=== PATIENT | female | born 1950 | race Caucasian/White ===

== ENCOUNTER 2023-01-14 18:10 | Inpatient (IN) | payer OTHER ==
--- OUTSIDE RECORDS SUMMARY | 2023-01-14 18:15 | XMS REPORT | Continuity of Care Document ---
:1950 Author Organization [facility] t Address [address] [facility]. [address] [place] [address] Care Team Providers Name Role Phone David HANSEN, Radha Torres Primary Care Physician [phone] Tom HANSEN, Aby Attending Clinician Jessenia [facility], Genevieve Attending Clinician Unavailable Pipe BRADLEY, Dinesh Attending Clinician Unavailable Gopal HANSEN, Titi Attending Clinician Amy HANSEN, [facility] Yusra Attending Clinician Merritt HANSEN, Chary Orlando Attending Clinician [phone] Guerrero [facility], Mekhi Attending Clinician Unavailable Ana BRADLEY, Yuliana Attending Clinician Unavailable Jeovanny BRADLEY, Lillie Attending Clinician Unavailable Provider, Unknown Attending Clinician Unavailable Gino [facility], Laureen Michaels Attending Clinician Unavailwanda Fuentes MD, Chelsea Beckwith Attending Clinician Rochelle Alberto MD Attending Clinician Ezequiel Pierce MD Attending Clinician [phone] RADHA HERNANDEZ Attending Clinician Unavailable RIP BRAVO Attending Clinician Unavailable LAB90 Attending Clinician Unavailable Roxana Up LVN Attending Clinician Unavailable [address] [place] LVN Attending Clinician Unavailable Rip Bravo DO Attending Clinician David HANSEN, Radha Torres Attending Clinician [phone] CHARY ACKERMAN Admitting Clinician Unavailable Payers Payer Name Policy Type Policy Number Effective Date Expiration Date Jose CARPENTER [place] PPO 5 [id number] 2021 00:00:00 Problems Condition Condition Condition Status Onset Resolution Last Treating Co mments Source Name Details Category Date Date Treatment Clinician Date Physical Physical Disease Active Metho di debility debility 01-04 00:00: Hospita 00 l Acute on Acute on Disease Active 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 00:00: Ho spita y failure y failure 00 l with with hypoxia hypoxia Ovarian Ovarian Disease Active [facility] cancer cancer 12-28 st 00:00: Hospita 00 l Poison janis Poison janis Disease Active K elsey dermatitis dermatitis 08-30 Se ybold 00:00: - 00 Externa l SARS-CoV-2 SARS-CoV-2 Disease Active K elsey positive positive 8 Seybol d 00:00: - 00 Externa l Influenza Influenza Disease Active Darrell sey 3-21 Seybold 00:00: - 00 Externa l Abnormal Abnormal Disease Active Metho di liver liver 2 enzymes enzymes 00:00: Hospita 00 l Autoantibo Autoantibo Disease Active M ethodi dy titer dy titer 2 st positive positive 00:00: Hospit a 00 l Other Other Disease Active Methodi hyperlipid hyperlipid 2 st emia emia 00:00: Hospita 00 l Swelling Swelling Disease Active Kelse y of hand of hand 7 Seybold joint, joint, 00:00: - unspecifie unspecifie 00 Ex terna d d l laterality laterality - Not - Not Controlled Controlled Intermitte Intermitte Disease Active K elsey nt pain nt pain 02-20 Seybold and and 00:00: - swelling swelling 00 Reed Cleaner a of hand - of hand - l Not Not Controlled Controlled Blood in Blood in Disease Active Kelse y stool - stool - 02-20 Seybold Not Not 00:00: - Controlled Controlled 00 Ex terna l Hyperchole Hyperchole Disease Active K elsey sterolemia sterolemia 02-20 Se ybold 00:00: - 00 Externa l Allergies, Adverse Reactions, Alerts Allergy Allergy Status Severity Reaction(s) Onset Inactive Treating Comm ents Source Name Type Date Date Clinician Paclitax Propensi Active Anaphylaxis M ethodi el ty to 01-03 st adverse 00:00: Hospita reaction 00 l s to drug Levoflox Propensi Active Chikis acin ty to 02-20 Seybold adverse 00:00: - reaction 00 Externa s l Levoflox Propensi Active Other (See Me thodi acin ty to Comments) 02-20 st adverse 00:00: Hospita reaction 00 l s to drug Social History Social Habit Start Date Stop Date Quantity Comments Source Exposure to Not sure Chikis [place] SARS-CoV-2 (event) History of tobacco Current smoker [facility] History of Social 2023-01-11 2023-01-[address] function 00:00:00 00:00:00 Hospital Tobacco use and 2023-01-03 2023-01-03 Smokeless [facility] exposure 00:00:00 00:00:00 tobacco non-user Hospital Tobacco Comment 2023-01-03 2023-01-03 Quit many years Meth odist 00:00:00 00:00:00 ago- smoked 1 Hospital pack a week for 5 years Sex Assigned At [birth year] [facility] 00:00:00 00:00:00 Hospital Smoking Status Start Date Stop Date Source Ex-smoker 2023-01-03 00:00:00 2023-01-03 00:00:00 [facility] Never smoked tobacco Chikis Wall old - External Medications Ordered Filled Start Stop Current Ordering Indication Dosage Frequency Signature Comments Components Source Medication Medication Date Date Medication? Clinician (SIG) Name Name acetaminoph 2023-0 Yes 325mg Q4H Take 1 Met hodi en 6-[address] (TYLENOL) 10:14: (325 mg Hospi ta 325 MG 08 total) by l tablet mouth every 4 (four) hours as needed for fever. ondansetron 2022-0 Yes 8mg Q8H Take 1 Meth jackie (ZOFRAN) 8 6-02 tablet (8 st MG tablet 10:14: mg total) Hos kimmy 08 by mouth l every 8 (eight) hours as needed for nausea or vomiting. promethazin 2022-0 Yes 12.5mg Q6H Take 1 Me thodi e 6-[address] (PHENERGAN) 10:14: (12.5 mg Ho spita 12.5 MG 08 total) by l tablet mouth every 6 (six) hours as needed for nausea or vomiting. CALCIUM 2022-0 Yes 1{tbl} QD Take 1 Method i ORAL 6-[address] 10:14: mouth Hospita 08 daily. l cholecalcif 2022-0 Yes 1{capsu QD Take 1 M ethodi yeni, 6-02 le} capsule by vitamin D3, 10:14: mouth Hospi ta (VITAMIN D3 08 daily. l ORAL) cyanocobala 2022-0 Yes 1{tbl} QD Take 1 Me thodi min, 6-[address] vitamin 10:14: mouth Hospita B-12, 08 daily. l (VITAMIN B-12 ORAL) famotidine 2022-0 Yes 20mg Q.5D Take 1 Metho di (PEPCID) 20 6-02 tablet (20 st MG tablet 10:14: mg total) Hos kimmy 08 by mouth 2 l (two) times a day as needed for heartburn. rosuvastati 2022-0 2022- No 5mg QD Take 1 Met hodi n (CRESTOR) 5-26 05-26 tablet (5 st 5 mg tablet 12:19: 00:00 mg total) Hospita 51 :00 by mouth l nightly. acetaminoph 2022-0 2022- No 325mg Q4H Insert 1 Methodi en 5-25 05-[address] (TYLENOL) 16:27: 00:00 y (325 mg Ho spita 325 MG 04 :00 total) l suppository into the rectum every 4 (four) hours as needed for mild pain. predniSONE Yes 1 tab Method i (DELTASONE) 5-[address] 20 mg 00:00: for 7 days Hospit a tablet 00 then 1/2 l po daily for 5 days and then 1/2 tab po daily for 5 days ondansetron 2022- No 8mg Q8H Take 1 Met hodi (ZOFRAN) 8 19 05-25 tablet (8 st MG tablet 00:00: 00:00 mg total) Ho spita 00 :00 by mouth l every 8 (eight) hours as needed for nausea or vomiting for up to 30 days. promethazin 2022- No 12.5mg Q6H Take 1 M ethodi e 5-19 05-[address] (PHENERGAN) 00:00: 00:00 (12.5 mg H ospita 12.5 MG 00 :00 total) by l tablet mouth every 6 (six) hours as needed for nausea or vomiting for up to 30 days. predniSONE 2022- No 50mg QD Take 1 Meth jackie (DELTASONE) 5-17 05-25 tablet (50 s t 50 mg 00:00: 00:00 mg total) Hospit a tablet 00 :00 by mouth l daily for 7 days. predniSONE 2022- No 50mg QD Take 1 Meth jackie (DELTASONE) 5-10 05-17 tablet (50 s t 50 mg 00:00: 00:00 mg total) Hospit a tablet 00 :00 by mouth l daily for 7 days. Triamcinolo 2022- No [id number] 40mg Chikis boggs 08-30 Seybold Acetonide 14:45: 14:45 - (KENALOG) 00 :00 Externa 40 mg/mL l Triamcinolo 2022- No [id number] 40mg 40 mg, Chikis boggs 08-30 intramuscu Seybold Acetonide 14:45: 14:45 lar, ONCE, - (KENALOG) 00 :00 On Alysha Externa 40 mg/mL 08/30/22 at l 0845, For 1 dose B Complex Yes 1{tbl} Take 1 Porsha ey Vitamins 1-19 tablet by Seybol d (B-Complex/ 08:32: mouth - B-12) oral 25 daily Externa Tablet l Aspirin 81 Yes 81mg Take 81 mg K elsey MG oral -19 by mouth Seybold Tablet 08:32: daily - Delayed 25 Externa Response l Probiotic 2022-0 Yes 1{tbl} Take 1 Porsha ey Product -19 tablet by Tiago ([employer] S[facility] 08:32: mouth - PROBIOTIC 25 daily Externa OR) l Ascorbic 0 Yes 1{tbl} Take 1 Kelse y Acid 1-19 tablet by Tiago (Vitamin C) 08:32: mouth - 500 MG oral 25 daily Externa Capsule l Multiple Yes 1{tbl} Take 1 Kelse y Vitamins-Mi -19 tablet by Robles harris nerals 08:32: mouth - (CENTRUM 25 daily Externa ADULTS OR) l Coenzyme Yes 1{capsu Take 1 Porsha ey Q10 (CoQ10) -19 le} capsule by ybold 200 MG oral 08:32: mouth - Capsule 25 daily Externa l Calcium Yes Take by Chikis Carb-Cholec -19 mouth Seybold alciferol 08:32: - (Calcium 25 Externa 500 + D3) l 500-200 MG-UNIT oral Tablet predniSONE Yes One pill Chikis (DELTASONE) 1-19 twice Seybold 10 MG oral 00:00: daily for - tablet 00 7 days Externa then one l pill daily for 7 days Famotidine Yes 20mg Take 1 Chikis (Pepcid) 20 -19 tablet (20 Se ybold MG oral 00:00: mg total) - tablet 00 by mouth 2 Externa times l daily Cetirizine Yes 10mg Take 1 Chikis HCl (ZyrTEC -19 capsule Ebenezer ld Allergy) 10 00:00: (10 mg - MG oral 00 total) by Externa Capsule mouth l daily Poison Janis Yes Apply 1 Chikis Treatments -19 applicatio Robles harris (Zanfel) 00:00: n - apply 00 topically Externa externally daily l Misc Hydroxychlo 2021-08 Yes 1{tbl} Take 1 Ke lsey roquine 0-13 tablet by Seybold Sulfate 200 00:00: mouth 2 - MG oral 00 times Externa Tablet daily l hydroxychlo 2021-08 Yes 200mg Q.5D Take 1 Met hodi roquine 0-[address] (PLAQUENIL) 00:00: (200 mg Hos kimmy 200 mg 00 total) by l tablet mouth 2 (two) times a day. LORAZepam 2022- No 1mg Take 2 Metho di (Ativan) 04-25-25 tablets (1 st 0.5 MG 00:00: 00:00 mg total) Hospi ta tablet 00 :00 by mouth l once for 1 dose. Take 2 tablets 1 hour before your procedure. LORAZepam 2022- No 1mg Take 1 Metho di (Ativan) 1 04-25-25 tablet (1 st MG tablet 00:00: 00:00 mg total) Ho spita 00 :00 by mouth l once for 1 dose. Take one tablet 1 hour before your procedure Oseltamivir Yes [id number] 75mg Take 1 K elsey Phosphate 3-21 capsule Seybold 75 MG oral 00:00: (75 mg Capsule 00 total) by mouth in the morning and 1 capsule (75 mg total) in the evening. Benzonatate Yes [id number] 100mg Q.[id number] Take 1 Chikis (Tessalon 3-21 [id number] capsule S frenchbold Olegario) 100 00:00: 3D (100 mg MG oral 00 total) by Capsule mouth 3 times daily as needed for cough Aspirin Yes 81mg Take 81 mg Porsha ey (Aspirin 7-12 by mouth Seybold 81) 81 MG 09:34: daily oral Tablet 23 Delayed Response Probiotic Yes 1{tbl} Take 1 Porsha ey Product 7-12 tablet by Seybold ([employer] [facility] 09:34: mouth PROBIOTIC 23 daily OR) Ascorbic Yes 1{tbl} Take 1 Kelse y Acid 7-12 tablet by Seybold (Vitamin C) 09:34: mouth 500 MG oral 23 daily Capsule Aspirin Yes 81mg Take 81 mg Porsha ey (Aspirin 7-12 by mouth Seybold 81) 81 MG 09:34: daily oral Tablet 23 Delayed Response Probiotic Yes 1{tbl} Take 1 Porsha ey Product 7-12 tablet by Tiago ([employer] [facility] 09:34: mouth PROBIOTIC 23 daily OR) Ascorbic Yes 1{tbl} Take 1 Kelse y Acid 7-12 tablet by Tiago (Vitamin C) 09:34: mouth 500 MG oral 23 daily Capsule Multiple Yes 1{tbl} Take 1 Kelse y Vitamins-Mi 7-12 tablet by Robles sullivan 09:32: mouth (CENTRUM 45 daily ADULTS OR) Coenzyme Yes 1{capsu Take 1 Porsha ey Q10 (CoQ10) 7-12 le} capsule by Se llamasold 200 MG oral 09:32: mouth Capsule 45 daily Calcium Yes Take by Chikis Carb-Cholec 7-12 mouth Tiago alciferol 09:32: (Calcium 45 500 + D3) 500-200 MG-UNIT oral Tablet B Complex Yes 1{tbl} Take 1 Porsha ey Vitamins 7-12 tablet by Maeol d (B-Complex/ 09:32: mouth B-12) oral 45 daily Tablet Multiple Yes 1{tbl} Take 1 Kelse y Vitamins-Mi 7-12 tablet by Robles sullivan 09:32: mouth (CENTRUM 45 daily ADULTS OR) Coenzyme Yes 1{capsu Take 1 Porsha ey Q10 (CoQ10) 7-12 le} capsule by ybold 200 MG oral 09:32: mouth Capsule 45 daily Calcium Yes Take by Chikis Carb-Cholec 7-12 mouth Tiago alciferol 09:32: (Calcium 45 500 + D3) 500-200 MG-UNIT oral Tablet B Complex Yes 1{tbl} Take 1 Porsha ey Vitamins 7-12 tablet by Seybol d (B-Complex/ 09:32: mouth B-12) oral 45 daily Tablet Immunizations Ordered Immunization Filled Immunization Date Status Commen ts Source Name Name Influenza Virus 2022-05-28 Completed Chikis rossi Vaccine, 00:00:00 - External Quadrivalent, High Dose, Age 65 And Up Influenza vaccine, 2021-05-25 Completed Chikis Ordoñez quadrivalent, 00:00:00 - External adjuvanted Influenza vaccine, 2021-05-25 Completed Chikis Ordoñez quadrivalent, 00:00:00 adjuvanted Influenza vaccine, 2021-05-25 Completed Chikis Ordoñez quadrivalent, 00:00:00 adjuvanted Covid-19 Vaccine 2020-11-30 Completed Chikis joya Moderna (Spikevax), 00:00:00 - Ext ernal Mrna-lnp, Titus Protein, Pf Covid-19 Vaccine 2020-11-30 Completed Chikis joya (Moderna), Mrna-lnp, 00:00:00 Titus Protein, Pf, 100 Mcg/0.5ml,IM Covid-19 Vaccine 2020-11-30 Completed Chikis joya Moderna (Spikevax), 00:00:00 Mrna-lnp, Titus Protein, Pf MODERNA COVID-19 MRNA 2020-11-30 Completed Met [facility]odist VACCINATION 00:00:00 Hospital Covid-19 Vaccine 2020-11-02 Completed Chikis joya Moderna (Spikevax), 00:00:00 - Ext ernal Mrna-lnp, Titus Protein, Pf Covid-19 Vaccine 2020-11-02 Completed Chikis jyoa (Moderna), Mrna-lnp, 00:00:00 Titus Protein, Pf, 100 Mcg/0.5ml,IM Covid-19 Vaccine 2020-11-02 Completed Chikis joya Moderna (Spikevax), 00:00:00 Mrna-lnp, Titus Protein, Pf MODERNA COVID-19 MRNA 2020-11-02 Completed Met hodist VACCINATION 00:00:00 [facility] Influenza Virus 2020-05-24 Completed Chikis rossi Vaccine, age 6 months 00:00:00 - E xternal and up Influenza Virus 2020-05-24 Completed Chikis rossi Vaccine, age 6 months 00:00:00 and up Influenza Virus 2020-05-24 Completed Chikis rossi Vaccine, age 6 months 00:00:00 and up Tdap- (Boostrix, 2019-08-26 Completed Chikis joya Adacel) 00:00:00 - External Shingles IM 2019-08-26 Completed Chikis Gordon d (Shingrix) 00:00:00 - External Tdap- (Boostrix, 2019-08-26 Completed Chikis S eybold Adacel) 00:00:00 Shingles IM 2019-08-26 Completed Chikis Seybol d (Shingrix) 00:00:00 Tdap- (Boostrix, 2019-08-26 Completed Chikis S eybold Adacel) 00:00:00 Shingles IM 2019-08-26 Completed Chikis Seybol d (Shingrix) 00:00:00 Influenza Virus 2019-07-06 Completed Chikis Se ybold Vaccine, age 6 months 00:00:00 - E xternal and up Influenza Virus 2019-07-06 Completed Chikis Se ybold Vaccine, age 6 months 00:00:00 and up Influenza Virus 2019-07-06 Completed Chikis Se ybold Vaccine, age 6 months 00:00:00 and up Influenza Virus 2018-05-28 Completed Chikis Se ybold Vaccine, age 6 months 00:00:00 - E xternal and up Influenza Virus 2018-05-28 Completed Chikis Se ybold Vaccine, age 6 months 00:00:00 and up Influenza Virus 2018-05-28 Completed Chikis Se ybold Vaccine, age 6 months 00:00:00 and up Influenza Virus 2017-05-08 Completed Chikis Se ybold Vaccine, No Preserv, 00:00:00 - Ex ternal age 6 months and up Influenza Virus 2017-05-08 Completed Chikis Se ybold Vaccine, No Preserv, 00:00:00 age 6 months and up Influenza Virus 2017-05-08 Completed Chikis Se ybold Vaccine, No Preserv, 00:00:00 age 6 months and up Influenza Virus 2017-05-07 Completed Chikis Se ybold Vaccine, age 6 months 00:00:00 - E xternal and up Influenza Virus 2017-05-07 Completed Chikis Se ybold Vaccine, age 6 months 00:00:00 and up Influenza Virus 2017-05-07 Completed Chikis Se ybold Vaccine, age 6 months 00:00:00 and up Influenza Virus 2016-05-09 Completed Chikis Se ybold Vaccine, age 6 months 00:00:00 - E xternal and up Influenza Virus 2016-05-09 Completed Chikis Se ybold Vaccine, age 6 months 00:00:00 and up Influenza Virus 2016-05-09 Completed Chikis Se ybold Vaccine, age 6 months 00:00:00 and up Influenza Virus 2015-05-27 Completed Chikis Se ybold Vaccine, age 6 months 00:00:00 - E xternal and up Pneumococcal Vaccine, 2015-05-27 Completed Darrell sey Seybold Polysaccharide 00:00:00 - External Influenza Virus 2015-05-27 Completed Chikis Se ybold Vaccine, age 6 months 00:00:00 and up Pneumococcal Vaccine, 2015-05-27 Completed Darrell sey Seybold Polysaccharide 00:00:00 Influenza Virus 2015-05-27 Completed Chikis Se ybold Vaccine, age 6 months 00:00:00 and up Pneumococcal Vaccine, 2015-05-27 Completed Darrell sey Seybold Polysaccharide 00:00:00 Pneumococcal 2015-05-27 Completed [facility] Polysaccharide 00:00:00 Hospital Influenza Virus 2014-05-13 Completed Chikis Se ybold Vaccine, age 6 months 00:00:00 - E xternal and up Influenza Virus 2014-05-13 Completed Chikis Se ybold Vaccine, age 6 months 00:00:00 and up Influenza Virus 2014-05-13 Completed Chikis Se ybold Vaccine, age 6 months 00:00:00 and up Shingles SQ 2012-10-29 Completed Chikis Seybol d (Zostavax) 00:00:00 - External Shingles SQ 2012-10-29 Completed Chikis Seybol d (Zostavax) 00:00:00 Shingles SQ 2012-10-29 Completed Chikis Seybol d (Zostavax) 00:00:00 Tdap- (Boostrix, 2012-07-25 Completed Chikis Garcia eybold Adacel) 00:00:00 - External Tdap- (Boostrix, 2012-07-25 Completed Chikis Garcia eybold Adacel) 00:00:00 Tdap- (Boostrix, 2012-07-25 Completed Chikis S eybold Adacel) 00:00:00 Vital Signs Vital Name Observation Time Observation Value Comments Source Systolic blood 2022-08-30 14:30:00 144 mm[Hg] Chikis Seybold - pressure External Diastolic blood 2022-08-30 14:30:00 76 mm[Hg] Jonel y Seybold - pressure External Heart rate 2022-08-30 14:30:00 94 /min Chikis S eybold - External Body temperature 2022-08-30 14:30:00 36.17 Tran Porsha ey Seybold - External Respiratory rate 2022-08-30 14:30:00 15 /min Porsha ey Seybold - External Body height 2022-08-30 14:30:00 165.1 cm Chikis S eybold - External Body weight 2022-08-30 14:30:00 86.637 kg Chikis S eybold - External BMI 2022-08-30 14:30:00 31.78 kg/m2 Chikis S eybold - External Systolic blood 2021-07-13 16:21:00 119 mm[Hg] Chikis Seybold pressure Diastolic blood 2021-07-13 16:21:00 70 mm[Hg] Kelse y Seybold pressure Heart rate 2021-07-13 16:21:00 66 /min Chikis S eybold Body temperature 2021-07-13 16:21:00 36.28 Tran Porsha ey Seybold Respiratory rate 2021-07-13 16:21:00 14 /min Porsha ey Seybold Body height 2021-07-13 16:21:00 165.1 cm Chikis S eybold Body weight 2021-07-13 16:21:00 87.907 kg Chikis Garcia eybold BMI 2021-07-13 16:21:00 32.25 kg/m2 Chikis Garcia eybold Systolic blood 2023-01-11 14:53:17 131 mm[Hg] [facility] pressure Diastolic blood 2023-01-11 14:53:17 64 mm[Hg] [facility] pressure Heart rate 2023-01-11 14:53:17 101 /[facility] temperature 2023-01-11 14:53:17 36.17 Tran [facility] Respiratory rate 2023-01-11 14:53:17 19 /min [facility] Body height 2023-01-11 14:53:17 [facility].1 [facility] Body weight 2023-01-11 14:53:17 74.39 [facility] BMI 2023-01-11 14:53:17 27.29 kg/m2 [facility] Oxygen saturation in 2023-01-11 14:53:17 93 /min [facility] Arterial blood by Pulse oximetry Procedures Procedure Date / Time Performing Clinician Source Performed COMPREHENSIVE METABOLIC 2023-01-11 14:57:00 [facility] WITH PLATELET AND 2023-01-11 14:57[facility]00 [facility] MAGNESIUM LEVEL 2023-01-11 14:57:00 Aby Kay Ho spital ESTIMATED GFR 2023-01-11 14:57:00 Thierry Kayishbisi Stevens Ho spital CBC WITH PLATELET AND 2023-01-04 09:45:00 Chary Ackerman [facility] DIFFERENTIAL F[place]hat BASIC METABOLIC PANEL 2023-01-04 09:45:00 Maryana Ackermanmad [facility] Fasahat ESTIMATED GFR 2023-01-04 09:45:00 Chary Ackerman Ho spital [place] TROPONIN T 2023-01-04 02:15:00 Soniya Loaiza spital LACTIC ACID LEVEL, SEPSIS - 2023-01-04 02:15:00 [facility] NOW AND REPEAT 2X EVERY 3 HOURS US CHEST 2023-01-04 01:47:00 Chary Ackerman spital F[place] TROPONIN T 2023-01-03 22:11:00 Soniya Loaiza spital LACTIC ACID LEVEL, SEPSIS - 2023-01-03 22:11:00 [facility] NOW AND REPEAT 2X EVERY [address] ANGIOGRAM PE CHEST 2023-01-03 20:23:18 [facility] XR CHEST 1 VW PORTABLE 2023-01-03 18:31:14 [facility] LACTIC ACID LEVEL, SEPSIS - 2023-01-03 17:31:00 [facility] NOW AND REPEAT 2X EVERY 3 HOURS NT-PROBNP 2023-01-03 17:31:00 [facility] CREATINE KINASE, TOTAL 2023-01-03 17:31:00 [facility] (CPK) D-DIMER 2023-01-03 17:31:00 [facility] PROTHROMBIN TIME WITH INR 2023-01-03 17:31:00 [facility] PARTIAL THROMBOPLASTIN TIME 2023-01-03 17:31:00 [facility] (PTT) MAGNESIUM LEVEL 2023-01-03 17:31:00 [facility] COMPREHENSIVE METABOLIC 2023-01-03 17:31:00 [facility] PANEL TROPONIN T 2023-01-03 17:31:00 [facility] ESTIMATED GFR 2023-01-03 17:31:00 [facility] POC GLUCOSE 2023-01-03 17:30:00 [facility] CBC WITH PLATELET AND 2023-01-03 17:29:00 Soniya Loaiza [facility] DIFFERENTIAL ESTIMATED GFR 2023-01-03 17:28:00 Soniya Loaiza spital ECG 12-LEAD 2023-01-03 17:17:49 Aby Kay spital ECG 12-LEAD 2023-01-03 16:43:50 Soniya Loaiza spital COMPREHENSIVE METABOLIC 2023-01-03 12:54:[address] [facility] [place] [place] PANEL CBC WITH PLATELET AND 2023-01-03 12:54:00 Aby Kay [facility] DIFFERENTIAL MAGNESIUM LEVEL 2023-01-03 12:54:00 Aby Kay spital URINALYSIS, AUTOMATED WITH 2023-01-03 12:54:00 [facility] MICROSCOPY ESTIMATED GFR 2023-01-03 12:54:00 Aby Kay spital SURGICAL PATHOLOGY REQUEST 2022-12-27 18:05:00 [facility] NO 2022-12-27 16:35[facility] 2022-12-27 16:14:00 Elle Saenzuj [facility] Ho spital (NON-GYNECOLOGICAL) REQUEST WI ENDOMETRIAL BX W/WO 2022-12-26 20:47:42 [facility] ENDOCERVIX BX W/O DILAT SPX PAP (REFLEX TO HPV DNA 2022-12-26 19:48:00 [facility] GENOTYPING 16,18 WHEN ASC-US) ENDOMETRIAL BIOPSY LAB 2022-12-26 19:46:00 [facility] BASIC METABOLIC PANEL 2022-12-26 18:59:00 [facility] CYTOLOGY 2022-12-20 22:50:00 Chelsea Fuentes ospital (NON-GYNECOLOGICAL) REQUEST PROTEIN, MISC FLUID 2022-12-20 19:33:00 Chelsea Fuentes [facility] GLUCOSE LEVEL, [facility] FLUID 2022-12-20 19:33:00 Chelsea Fuentes [facility] CELL COUNT AND 2022-12-20 19:33:00 Chelsea Fuentes ospital DIFFERENTIAL, BODY FLUID BODY FLUID CONSULT 2022-12-20 19:33:00 [facility] 2022-12-20 17:58:00 Chelsea Fuentes ospital ANAEROBIC CULTURE 2022-12-20 17:58:[address] [facility] AFB CULTURE 2022-12-20 17:58:00 Chelsea Fuentes ospital FUNGUS CULTURE 2022-12-20 17:58:00 Chelsea Fuentes ospital GRAM STAIN 2022-12-20 17:58:00 Chelsea Fuentes ospital AFB STAIN 2022-12-20 17:58:00 Chelsea Fuentes ospital ESTIMATED GFR 2022-12-20 17:06:00 Rochelle Alberto spital PROTHROMBIN TIME WITH INR 2022-12-19 20:37:00 Aby Kay [facility] PARTIAL THROMBOPLASTIN TIME 2022-12-19 20:37:00 [facility] (PTT) CANCER ANTIGEN 125 2022-12-19 20:37:00 [facility] COMPREHENSIVE METABOLIC 2022-12-19 20:37:00 [facility] PANEL CBC WITH PLATELET AND 2022-12-19 20:37:00 [facility] DIFFERENTIAL CARCINOEMBRYONIC ANTIGEN 2022-12-19 20:37:00 [facility] ([facility]) ESTIMATED GFR 2022-12-19 20:37:00 [facility] spital PET CT SKULL BASE TO MID 2022-12-06 21:00:42 [facility] THIGH Rex POC GLUCOSE 2022-12-06 19:14:00 [facility] spital Rex CT CHEST WO CONTRAST 2022-11-22 01:14:24 [facility] Rex COMPREHENSIVE METABOLIC 2022-08-20 15:03:00 [facility] PANEL US ABDOMINAL WITH LIVER 2022-05-30 15:48:11 [facility] ELASTOGRAPHY COMPREHENSIVE METABOLIC 2022-04-13 14:27:00 [facility] [facility] 2022-01-17 14:31:00 [facility] PANEL Plan of Care Planned Activity Planned Date Details Comments Source Future Scheduled Test 2023-01-14 Screening for [facility] 16:51:30 malignant neoplasm of colon (procedure) [code = 885380265] Future Scheduled Test 2023-01-14 Screening for [facility] 16:51:30 malignant neoplasm of colon (procedure) [code = 937931646] Future Scheduled Test 2023-01-14 Screening for [facility] 16:51:30 malignant neoplasm of colon (procedure) [code = 247525098] Future Scheduled Test 2023-01-[address] [facility] 16:51:30 (procedure) [code = 201516395] Future Scheduled Test 2023-01-14 BREAST CANCER [facility] 16:51:30 SCREENING [code = BREAST CANCER SCREENING] Future Scheduled Test 2023-01-14 Screening for [facility] 16:51:30 malignant neoplasm of colon (procedure) [code = 011058642] Future Scheduled Test 2023-01-14 Screening for [facility] 16:51:30 malignant neoplasm of colon (procedure) [code = 059093529] Future Scheduled Test 2023-01-[address] [facility] 16:51:30 (1 of 3 - Risk 3-dose series) [code = HEPATITIS B VACCINES (1 of 3 - Risk 3-dose series)] Future Scheduled Test 2023-01-14 SHINGLES VACCINES (2 [facility] 16:51:30 of 3) [code = SHINGLES VACCINES (2 of 3)] Future Scheduled Test 2023-01-14 65+ PNEUMOCOCCAL Me [facility] 16:51:30 VACCINE (2 - PCV) [code = 65+ PNEUMOCOCCAL VACCINE (2 - PCV)] Future Scheduled Test 2023-01-14 COVID-19 VACCINE (3 - [facility] 16:51:30 Booster for Moderna series) [code = COVID-19 VACCINE (3 - Booster for Moderna series)] Future Scheduled Test 2023-01-14 INFLUENZA VACCINE [facility] 16:51:30 [code = INFLUENZA VACCINE] Future Appointment 2023-01-16 Aby Kay MD, [facility] 10:30:[address] [place] [address]; [facility], [place] [address] Encounters Start End Encounter Admission Attending Care Care Encounter Source Date/Time Date/Time Type Type Clinicians Facility Department ID 2023-01-11 2023-01-11 Infusion Tom 1.2.840.1 [id number] Methodi 10:00:00 14:00:[address] 3.430.2.7 Hospit a .3.828758 l .8 2023-01-11 2023-01-11 Outpatient TOM [facility] [id number] [place] 00:00:00 00:00:00 ABY [address] 2023-01-11 2023-01-11 Travel 1.2.840.1 1.2.960.608 5989 881628 Methodi 00:00:00 00:00:[address] 3.430.2.7 0.2.7.3.698 Ho spita .3.932424 084.8 l .8 2023-01-11 2023-01-11 Orders Tom, 1.2.840.1 [id number] 9771 Methodi 00:00:00 00:00:00 Only Aby 30423.1.[address] 3.430.2.7 Hospit a .3.398436 l .8 2023-01-10 2023-01-10 Orders Jessenia, 1.2.840.1 [id number] 3045 Methodi 00:00:00 00:00:00 Only Leylah 91759.1.[address] 3.430.2.7 Hospit a .3.272383 l .8 2023-01-10 2023-01-10 Orders Jessenia, 1.2.840.1 [id number] 015485 7367 Methodi 00:00:00 00:00:00 Only Justineylah 54495.1.[address] 3.430.2.7 Hospit a .3.149881 l .8 2023-01-09 2023-01-09 Larry Betancur 1.2.840.1 [id number] 2100 731824 Methodi 00:00:00 00:00:[address] 3.430.2.7 Hospit a .3.538991 l .8 2023-01-03 2023-01-08 Infusion Tom 1.2.840.1 [id number] 24124 10641 Methodi 08:00:00 00:06:[address] 3.430.2.7 Hospit a .3.977686 l .8 2023-01-08 2023-01-08 Documentat Tiit Saenz 1.2.840.1 [id number] Methodi 00:00:00 00:00:[address] 3.430.2.7 Hospit a .3.428670 l .8 2023-01-03 2023-01-04 [facility] Evaristo Reyes 1.2.840.1 37943 1 [id number] Methodi 12:21:00 12:19:00 Encounter Chary Ackerman 44751.1.[address] 3.430.2.7 Hospit a .3.483862 l .8 2023-01-04 2023-01-04 Orders Guerrero, 1.2.840.1 [id number] 4568 Methodi 00:00:00 00:00:00 Only Mekhi 66558.1.1 918 s t 3.430.2.7 Hospit a .3.902858 l .8 2023-01-04 2023-01-04 Orders Kay, 1.2.840.1 [id number] 2064 Methodi 00:00:00 00:00:00 Only Aby 81253.1.[address] 3.430.2.7 Hospit a .3.759326 l .8 2023-01-03 2023-01-04 Outpatient [place] [address] 031 [id number] 602 [place] 00:00:00 00:00:[address] CHARY [address] 2023-01-03 2023-01-03 Oncology Ana, 1.2.840.1 [id number] 2 [id number] Methodi 00:00:00 00:00:00 [facility] Yuliana 10996.1.1 580 s t ip 3.430.2.7 Hospit a .3.352796 l .8 2023-01-03 2023-01-03 Travel 1.2.840.1 1.2.291.372 3999 239521 Methodi 00:00:00 00:00:[address] 3.430.2.7 0.2.7.3.698 Ho spita .3.238212 084.8 l .8 2023-01-03 2023-01-03 [facility] [id number] 129 [place] 00:00:00 00:00:[address] ABY [address] 2023-01-02 2023-01-02 Telephone Jeovanny, 1.2.840.1 [id number] 2100 011035 Methodi 00:00:00 00:00:[address] 3.430.2.7 Hospit a .3.735348 l .8 2023-01-01 2023-01-01 Telephone Tom, 1.2.840.1 [id number] 2100 881242 Methodi 13:00:00 17:07:00 Consult Aby 97572.1.[address] 3.430.2.7 Hospit a .3.655141 l .8 2023-01-01 2023-01-01 Orders Guerrero, 1.2.840.1 [id number] 957355 5744 Methodi 00:00:00 00:00:00 Only Godjhonvour 34715.1.1 802 s t 3.430.2.7 Hospit a .3.707690 l .8 2023-01-01 2023-01-01 [facility] [id number] 305 [place] 00:00:00 00:00:00 ABY [address] 2022-12-28 2022-12-28 Telemedici Tom, 1.2.840.1 [id number] 372 4327927 Methodi 09:00:00 09:36:06 ne Aby 62819.1.[address] 3.430.2.7 Hospit a .3.531906 l .8 2022-12-28 2022-12-28 Orders Tom, 1.2.840.1 [id number] 574459 1067 Methodi 00:00:00 00:00:00 Only Bay 62357.1.[address] 3.430.2.7 Hospit a .3.334786 l .8 2022-12-28 2022-12-28 Documentat Mary Ann, 1.2.840.1 [id number] 2 [id number] Methodi 00:00:00 00:00:00 ion Unknown 71709.1.[address] 3.430.2.7 Hospit a .3.630638 l .8 2022-12-28 2022-12-28 Orders Gino, 1.2.840.1 [id number] 18675 49162 Methodi 00:00:00 00:00:00 Only Laureen 32600.1.[address] Xenia 3.430.2.7 Hospit a .3.284099 l .8 2022-12-28 2022-12-28 Outpatient [facility] [id number] 050 [place] 00:00:00 00:00:00 ABY [address] 2022-12-27 2022-12-27 [facility] 1.2.840.1 [id number] 21 [id number] Methodi 10:00:00 23:59:[address] 3.430.2.7 Hospit a .3.358843 l .8 2022-12-27 2022-12-27 [facility] 1.2.840.1 [id number] 961 [id number] Methodi 08:15:00 08:20:[address] 3.430.2.7 Hospit a .3.941422 l .8 2022-12-27 2022-12-27 Travel 1.2.840.1 1.2.446.945 2920 197218 Methodi 00:00:00 00:00:[address] 3.430.2.7 0.2.7.3.698 Ho spita .3.071801 084.8 l .8 2022-12-27 2022-12-27 Outpatient [facility] 2100 [id number] [place] 00:00:00 00:00:[address] 2022-12-27 2022-12-27 Outpatient [facility] 2100 [id number] [place] 00:00:00 00:00:[address] 2022-12-26 2022-12-26 Office [facility] 1.2.840.1 [id number] 083 [id number] Methodi 13:15:00 14:48:[address] 3.430.2.7 Hospit a .3.206563 l .8 2022-12-26 2022-12-26 Refill Tom, 1.2.840.1 [id number] 155206 6001 Methodi 00:00:00 00:00:[address] 3.430.2.7 Hospit a .3.170469 l .8 2022-12-26 2022-12-26 Travel 1.2.840.1 1.2.234.999 4196 002559 Methodi 00:00:00 00:00:[address] 3.430.2.7 0.2.7.3.698 Ho spita .3.838099 084.8 l .8 2022-12-26 2022-12-26 Outpatient GOPAL TITI [facility] 2099 [id number] [place] 00:00:00 00:00:[address] 2022-12-21 2022-12-21 Travel 1.2.840.1 1.2.067.729 6761 116626 Methodi 00:00:00 00:00:[address] 3.430.2.7 0.2.7.3.698 Ho spita .3.052161 084.8 l .8 2022-12-20 2022-12-20 Lab Chelsea Fuentes 1.2.840.1 [id number] 21 [id number] Methodi 14:30:00 14:35:[address] 3.430.2.7 Hospit a .3.362991 l .8 2022-12-20 2022-12-20 Lab Rochelle Alberto 1.2.840.1 [id number] Methodi 12:00:00 12:05:00 Chelsea Fuentes 17709.1.[address] 3.430.2.7 Hospit a .3.017466 l .8 2022-12-20 2022-12-20 Outpatient CHELSEA FUENTES [facility] 735 [id number] [place] 00:00:00 00:00:[address] 2022-12-20 2022-12-20 Outpatient CHELSEA FUENTES [facility] 315 [id number] [place] 00:00:00 00:00:[address] 2022-12-19 2022-12-19 Lab Tom, 1.2.840.1 [id number] 8878 Methodi 15:15:00 15:20:[address] 3.430.2.7 Hospit a .3.281401 l .8 2022-12-19 2022-12-19 Office Tom, 1.2.840.1 [id number] 050231 6436 Methodi 14:00:00 15:00:00 Visit Aby 76882.1.[address] 3.430.2.7 Hospit a .3.231773 l .8 2022-12-19 2022-12-19 [facility] [id number] 595 [place] 00:00:00 00:00:00 ABY [address] 2022-12-19 2022-12-19 [facility] [id number] 389 [place] 00:00:00 00:00:00 ABY [address] 2022-12-19 2022-12-19 Travel 1.2.840.1 1.2.151.633 1135 176810 Methodi 00:00:00 00:00:[address] 3.430.2.7 0.2.7.3.698 spita .3.430957 084.8 l .8 2022-12-10 2022-12-10 [place] Tom, 1.2.840.1 [id number] 2100 213738 Methodi 00:00:00 00:00:[address] 3.430.2.7 Hospit a .3.896715 l .8 2022-12-06 2022-12-06 [facility], 1.2.840.1 [id number] 21 [id number] Methodi 14:00:00 23:59:00 Encounter Ezequiel 87428.1.[address] Rex 3.430.2.7 Hospi ta .3.345720 l .8 2022-12-06 2022-12-06 Outpatient [facility] 2100 [id number] [place] 00:00:00 00:00:00 [address] 2022-12-06 2022-12-06 Travel 1.2.840.1 1.2.318.492 5455 644440 Methodi 00:00:00 00:00:[address] 3.430.2.7 0.2.7.3.698 Ho spita .3.207301 084.8 l .8 2022-11-29 2022-11-29 [facility] 1.2.840.1 [id number] 2 [id number] Methodi 00:00:00 00:00:00 Orders Ezequiel 82105.1.[address] Rex 3.430.2.7 Hospi ta .3.815152 l .8 2022-11-27 2022-11-27 Outpatient CHIKIS HERNANDEZ [id number] 526 [place] 00:00:00 00:00:00 RADHA [place] 2022-11-21 2022-11-21 [facility] 1.2.840.1 [id number] 21 [id number] Methodi 19:11:32 23:59:00 Encounter Ezequiel 43897.1.[address] Rex 3.430.2.7 Hospi ta .3.372636 l .8 2022-11-21 2022-11-21 Outpatient [facility] 2100 [id number] [place] 00:00:00 00:00:[address] 2022-11-21 2022-11-21 Travel 1.2.840.1 1.2.438.983 0962 983878 Methodi 00:00:00 00:00:[address] 3.430.2.7 0.2.7.3.698 Ho spita .3.917957 084.8 l .8 2022-11-07 2022-11-07 Transcribe [facility], 1.2.840.1 [id number] Methodi 00:00:00 00:00:00 Orders Ezequiel 96512.1.[address] Rex 3.430.2.7 Hospi ta .3.483941 l .8 2022-10-12 2022-10-12 Outpatient CHIKIS HERNANDEZ [id number] 491 [place] 00:00:00 00:00:00 RADHA Seybol d 2022-10-11 2022-10-11 Outpatient CHIKIS HERNANDEZ [id number] 757 [place] 00:00:00 00:00:00 RADHA Seybol d 2022-09-17 2022-09-17 Outpatient CHIKIS HERNANDEZ [id number] 060 [place] 00:00:00 00:00:00 RADHA Seybol d 2022-08-30 2022-08-30 Outpatient CHIKIS BRAVO [id number] 53 [place] 08:30:00 08:30:00 RIP Seybol d 2022-08-28 2022-08-28 Telemedici Rommel, 1.2.840.1 [id number] 245 [id number] Methodi 09:15:00 09:29:[address] 46825.1.[address] 3.430.2.7 Hospit a .3.151799 l .8 2022-08-28 2022-08-28 Outpatient ROMMEL, [facility] [id number] [address] [place] [address] 00:00:00 00:00:00 ROCHELLE [address] 2022-08-16 2022-08-16 Outpatient CHIKIS HERNANDEZ [id number] 551 [place] 00:00:00 00:00:00 RADHA Seybol d 2022-06-22 2022-06-22 Orders Rommel, 1.2.840.1 [id number] 3025 Methodi 00:00:00 00:00:00 Only Rochelle 78438.1.[address] 3.430.2.7 Hospit a .3.463502 l .8 2022-06-20 2022-06-20 Outpatient CHIKIS HERNANDEZ [id number] 537 [place] 00:00:00 00:00:00 RADHA Seybol d 2022-06-11 2022-06-11 Outpatient CHIKIS HERNANDEZ [id number] 761 [place] 00:00:00 00:00:00 RADHA Seybol d 2022-06-07 2022-06-07 Outpatient CHIKIS HERNANDEZ [id number] 828 [place] 00:00:00 00:00:00 RADHA Seybol d 2022-06-01 2022-06-01 Outpatient CHIKIS HERNANDEZ [id number] [place] 00:00:00 00:00:00 RADHA Seybol d 2022-05-30 2022-05-30 [facility] 1.2.840.1 [id number] 77941 Methodi 09:32:55 23:59:00 Encounter Rochelle 57978.1.[address] 3.430.2.7 Hospit a .3.211985 l .8 2022-05-30 2022-05-30 [facility] [id number] [address] [place] [address] 00:00:00 00:00:00 ROCHELLE [address] 2022-05-30 2022-05-30 Travel 1.2.840.1 1.2.760.251 4158 432411 Methodi 00:00:00 00:00:[address] 3.430.2.7 0.2.7.3.698 spita .3.402464 084.8 l .8 2022-05-28 2022-05-28 Outpatient LAB90 CHIKIS PUENTE [id number] 38 [place] 10:40:00 10:40:00 Seybol d 2022-05-28 2022-05-28 Outpatient CHIKIS HERNANDEZ [id number] [place] 09:30:00 09:30:00 RADHA Seybol d 2022-05-07 2022-05-07 [facility] 1.2.840.1 [id number] 21 [id number] Methodi 00:00:00 00:00:[address] 3.430.2.7 Hospit a .3.042716 l .8 2022-05-02 2022-05-02 Telephone Up, 1.2.840.1 [id number] 21 [id number] Methodi 00:00:00 00:00:[address] 3.430.2.7 Hospit a .3.750962 l .8 2022-04-25 2022-04-25 Orders Serban, 1.2.840.1 [id number] [id number] 3338 Methodi 00:00:00 00:00:[address] 3.430.2.7 Hospit a .3.349136 l .8 2022-04-25 2022-04-25 Orders Serban, 1.2.840.1 [id number] 113869 2381 Methodi 00:00:00 00:00:[address] 3.430.2.7 Hospit a .3.064661 l .8 2022-04-24 2022-04-24 Telemedici Rommel, 1.2.840.1 [id number] 676 [id number] Methodi 09:15:00 09:58:16 [address] 13515.1.[address] 3.430.2.7 Hospit a .3.279924 l .8 2022-04-24 2022-04-24 Outpatient [facility], [facility] [id number] 596 [place] 00:00:00 00:00:00 ROCHELLE [address] 2022-03-30 2022-03-30 Orders Rommel, 1.2.840.1 [id number] 9078 Methodi 00:00:00 00:00:00 Only Rochelle 63709.1.[address] 3.430.2.7 Hospit a .3.398659 l .8 2022-03-23 2022-03-23 Telemedici Alfredo Bravo 1.2.840.114 112 [id number] [place] 13:30:00 13:45:00 ne Rip Avila 350.1.13.13 Se murielandreia 1.2.7.2.686 [id number] 0 2022-03-23 2022-03-23 Outpatient CHIKIS BRAVO [id number] 95 [place] 00:00:00 00:00:00 RIP Seybol d 2021-11-06 2021-11-06 Outpatient CHIKIS HERNANDEZ [id number] [place] 00:00:00 00:00:00 RADHA Seybol d 2021-10-30 2021-10-30 Telemedici Alfredo Bravo 1.2.840.114 107 [id number] [place] 10:45:00 10:51:22 ne Rip Avila 350.1.13.13 Se flo 1.2.7.2.686 [id number] 0 2021-10-17 2021-10-17 Outpatient [facility], [facility] [id number] [place] 00:00:00 00:00:00 ROCHELLE [address] 2021-09-20 2021-09-20 Outpatient ROMMEL, [facility] [id number] [place] 00:00:00 00:00:00 ROCHELLE [address] 2021-09-14 2021-09-14 Outpatient ROMMEL, [facility] [id number] [place] 00:00:00 00:00:00 ROCHELLE [address] 2021-09-14 2021-09-14 Outpatient ROMMEL, [facility] [id number] [place] 00:00:00 00:00:00 ROCHELLE [address] 2021-07-14 2021-07-14 Outpatient CHIKIS HERNANDEZ [id number] [place] 00:00:00 00:00:00 RADHA Seybol d 2021-07-13 2021-07-13 Office Alfredo Hernandez 1.2.840.114 [id number] 7441 [place] 10:30:00 11:00:00 Visit Radha Avila 350.1.13.13 Se flo Torres 1.2.7.2.686 [id number] 0 2021-07-13 2021-07-13 Outpatient CHIKIS HERNANDEZ [id number] 442 [place] 00:00:00 00:00:00 RADHA Seybol d 2021-05-26 2021-05-26 Outpatient CHIKIS HERNANDEZ [id number] 472 [place] 00:00:00 00:00:00 RADHA Seybol d 2021-05-01 2021-05-01 Outpatient CHIKIS HERNANDEZ [id number] [place] 00:00:00 00:00:00 RADHA Seybol d 2021-02-20 2021-02-20 Outpatient LAB90 CHIKIS PUENTE [id number] 76 [place] 10:20:00 10:20:00 Seybol d 2021-02-20 2021-02-20 Outpatient DAVID CHIKIS PUENTE [id number] [place] 09:15:00 09:15:00 RADHA Seybol d Results Test Description Test Time Test Comments Results Result Comments Source ECG 12 lead 2023-01-03 18:30:46 Test Item Value Reference Range Interpretation Comme nts Ventricular rate (test code = 253) 116 Atrial rate (test code = 255) 116 WI interval (test code = 266) 166 QRSD interval (test code = 260) 64 QT interval (test code = 264) 308 QTC interval (test code = 265) 428 P axis 1 (test code = 267) 58 QRS axis 1 (test code = 268) -7 T wave axis (test code = 270) 59 EKG impression (test code = 273) Sinus tachycardia-Septal infarct ( cited on or before 03-JAN-2023)-Abnormal ECG-In automated comparison with ECG of 03-JAN-2023 11:43,-No significant change was found- [facility] [id number] 17:31:00 Test Item Value Reference Range Interpretation Comments POC glucose (test code 104 mg/dL 65-99 H Opera tor Name: Melchor = [id number]) Yunior Manzo D: [id number] able: [facility] Notified security incident response specialist Interpretation Abnormal (test code = 09154-9) [facility] [id number] 03:22:00 Test Item Value Reference Range Interpretation Comments Endometrial biopsy BENIGN .. [facility] (test code = 6004) PATHOLOGY REPORT ..SURGICAL #: [id number] ID: [id number] ECIMEN SOURCE: Endomet riumCLINICAL DATA: Provided Diagnosis Code: R19.00CLI NICAL: A. ENDOMETRIAL BIO PSYGROSS: A. RECEIVED IN FOR BA AND LABELED WITH PA TIENT IDENTIFICATION, IS AN AGGREGATE OF TA N TISSUE AND SOFT MUCOID MAT ERIAL MEASURING 0.3 X 0.3 X 0.1 CM. THE SPECIME N IS FILTERED AND CAMPA BMITTED IN ONE CASSETTE.DI AGNOSIS: A. 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 NEGATIVE FOR AT YPIA AND MALIGNANCY. HEAVEN REDD M.D. PATHOLOGIS T, EX. 7353 This report was electronically signed. FINAL REPORT [facility] [id number] 20:33:25 Test Item Value Reference Range Interpretation Comments Case number (test code = [id number]) Cytology See link below for (non-gynecological) PDF Lab Report report (test code = 1178) Result status (test code This is Final Report = [id number]) for [id number] [facility] [id number] 16:48:46 Test Item Value Reference Range Interpretation Comments Case number (test code = [id number]) Surgical pathology See link below for report (test code = PDF Lab Report 2255) Result status (test code This is Final Report = [id number]) for [id number] [facility] (Reflex to HPV DNA Genotyping 16,18 when ASC-US)2022-12-29 15:22:00 Test Item Value Reference Range Interpretation Comments Pap smear, ThinPrep NILM NILM DIAGNOSI S: Negative for (test code = 204) intraepith elial lesion or malignancy ADEQ UACY: Satisfactory fo r evaluation / Transformatio n zone component canno t be adequately eval uated due to atrophic smear. COMMENT: This Pap smear was screened with the assist ance of the [place] [employer] ThinPre p(TM) Imaging System and screened by a cytotechno logist. SPECIMEN SOURCE : Pap (Reflex to HPV DNA Genotyping 16,1 8 when ASC-US), NOT WI OVIDED CLINICAL INFORM ATION: LMP: UKN Provided Di agnosis Codes: R19.00 R 19.00 Cervicovaginal cytology should be consi dered a screening proce dure subject to false negati ves and false positives . Results are more reliab le when a satisfactory sa mple is obtained on a r egular repetitive basi s, and should be inter preted together with p ast and current clinica l data. ELECTRONICALLY SIGNED BY: Screened By: ASAEL Diaz ra (ASCP) Case Electronically Signed 12/29/2022 [facility] [id number] 18:52:00 Test Item Value Reference Range Interpretation Comments Aerobic culture No growth Specimen isolate (test after 3 days. InformationSp ecimen code = 47758-5) Source: Pleu ral fluidSpecimen S ite: Left [facility] [id number] 13:10:00 Test Item Value Reference Range Interpretation Comments Anaerobic No anaerobic Specimen culture isolate organisms InformationS pecimen (test code = isolated. Source: Pleural 73007-5) fluidSpecimen S ite: Left [facility] HospitalAFB [id number] 13:57:00 Test Item Value Reference Range Interpretation Comments AFB stain No acid fast Specimen (test code = bacilli (AFB) InformationSpe cimen 676-7) seen. Source: Pleural fluidSpecimen S ite: Left [facility] HospitalCell count and differential, body [id number] 19:11:00 Test Item Value Reference Range Interpretation Comments Misc fluid type (test Pleural code = 59653-2) Color, fluid (test Yellow code = 6824-7) Appearance, fluid Hazy (test code = 9335-1) RBC, fluid (test code SEE COMMENT See_Comment 2+ (50 0 - 10,000 = 46841-2) RBC/CMM) [Autom ated message] The sy stem which generated this result transmit sandra reference range : /CMM. The refer ence range was not u sed to interpret this result as normal/abnor mal. Nucleated cells, 1756 See_Comment [Automated message] fluid (test code = The syste m which 16416-2) generated this result transmitted ref erence range: /CMM. Th e reference range was not used to int erpret this result as normal/abnormal . Fluid mononuclear See Diff cell (test code = 1407) Neutrophils, fluid 14 % (test code = 03997-1) Lymphocytes, fluid 19 % (test code = 89040-4) Mesothelial cells, 3 % fluid (test code = 69109-9) Macrophages, fluid 74 % (test code = 45394-5) Malignant cells, SEE COMMENT See_Comment Cluster of malignant fluid (test code = cells 88134-7) presentFootnote ------ --- [Automated message] The sy stem which generated this result transmit sandra reference range : %. The reference r souleymane was not used to interpret this result as normal/abnor mal. JAJA (test code = JAJA) [facility]URAL [facility] [id number] 19:11:00 Test Item Value Reference Range Interpretation Comments Body fluid consult Done Numerous malignant cells (test code = 987) present in the background of mixed inflam mation. Please correlat e with corresponding c ytology [id number] for further evaluation.Dr Danyel brownlee/ ONC manager operations was notified 12/22/2022 14:1 1 AEReviewed by Jim Dillard M.D. JAJA (test code = PLEURAL JAJA) [facility] CenterFungus [id number] 21:04:00 Test Item Value Reference Range Interpretation Comments Fungus smear No fungi Specimen (test code = observed. InformationSpec imen Source: 1443) Pleural fluidSp ecimen [facility] [id number] 12:19:00 Test Item Value Reference Range Interpretation Comments Gram stain No organisms Specimen isolate (test seen InformationSpe cimen code = 1469) Source: Pleural fluidSpecimen S ite: [facility]Glucose [facility], [facility] [id number] 00:49:00 Test Item Value Reference Range Interpretation Comments Fluid type Thoracentesis (test code = 43681-8) Glucose, fluid 26 mg/dL The reference interval(s) (test code = and other metho d 2344-0) performance specifications have not been establishe d for this body fluid. The test results must be integrated into the clinical contex t for interpretation. This test has been modifi ed from the manufacture r?s instructions. T he performance characteristics were determined [facility] in a manner consiste nt with CLIA [facility] ts. This test has not be en cleared or approved by the U.S. Food and Drug Administration. JAJA (test code PLEURAL = JAJA) [facility]Protein, misc [id number] 00:49:00 Test Item Value Reference Range Interpretation Comments Fluid type Thoracentesis (test code = 66310-7) Protein, fluid 4.3 g/dL The reference interval(s) (test code = and other metho d 2881-1) performance specifications have not been establishe d for this body fluid. The test results must be integrated into the clinical contex t for interpretation. This test has been modifi ed from the manufacture r?s instructions. T he performance characteristics were determined by Marion hallman [facility] in a manner consiste nt with CLIA [facility] ts. This test has not be en cleared or approved by the U.S. Food and Drug Administration. JAJA (test code PLEURAL = JAJA) [facility]
[2023-01-14] MEDS ORDERED: ONDANSETRON 4 MG/2 ML VIAL ONE ×3 (18:52→22:23)
[2023-01-14] MEDS ORDERED: NA CHLORIDE 0.9% 1,000 ML ONE ×2 (18:52→22:23)
[2023-01-14 19:06] LABS: Absolute Lymphocytes (CBC) 0.4 K/uL (0.7-4.9); Hematocrit 40.3 % (36.0-45.0); Lymphocytes % 2.8 % (15.3-44.8); MCV 90.1 fL (80-100); MPV 9.5 fL (7.6-11.3); RBC Red Blood Cell Count 4.47 M/uL (3.86-4.86)
[2023-01-14 19:27] LABS: Albumin 3.1 g/dL (3.4-5.0); Bilirubin Total 0.6 mg/dL (0.2-1.0); Potassium 3.5 mEq/L (3.5-5.1); Protein, Total 6.8 g/dL (6.4-8.2)
[2023-01-14] MEDS ORDERED: NA CHLORIDE 0.9% 500 ML ONE (19:57)
[2023-01-14] MEDS ORDERED: METOCLOPRAMIDE 10 MG/2mL INJ ONE (22:23)
[2023-01-14] MEDS ORDERED: MORPHINE 4 MG/ML SYR ONE (22:23)
--- NOTE | 2023-01-15 01:21 | ER ---
Nurse's Notes [facility] Name: Qing Powell Age: 72 yrs Sex: Female : 1950 Arrival Date: 01/14/2023 Time: 18:10 Bed 16 Private MD: Diagnosis: Vomiting, unspecified;Intractable vomiting, gastroenteritis, vomiting secondary to chemotherapy. Presentation: 01/14 18:13 Chief complaint: EMS states: Nausea and vomiting since 5am this morning. Had second nj1 chemo tx on Saturday for ovarian cancer with mets to lungs. 18:13 Method Of Arrival: EMS: [facility] banner 18:13 Coronavirus screen: Vaccine status: Patient reports receiving the 2nd dose of the covid nj1 vaccine. Ebola Screen: Patient denies travel to an Ebola-affected area in the 21 days before illness onset. Initial Sepsis Screen: Does the patient meet any 2 criteria? HR > 90 bpm. No. Patient's initial sepsis screen is negative. Does the patient have a suspected source of infection? No. Patient's initial sepsis screen is negative. Risk Assessment: Do you want to hurt yourself or someone else? Patient reports no desire to harm self or others. Onset of symptoms was January 14, 2023 at 05:00. 18:13 Acuity: NIKKI 3 nj1 18:24 Care prior to arrival: Medication(s) given: Normal saline infusion, 700ml Reglan 10mg nj1 IV. Triage Assessment: 18:23 General: Appears in no apparent distress. uncomfortable, Behavior is calm, cooperative, nj1 appropriate for age. Neuro: Level of Consciousness is awake, alert, obeys commands, Oriented to person, place, time, situation. Cardiovascular: Patient's skin is warm and dry. Respiratory: Airway is patent Respiratory effort is even, unlabored, Wears Home O2. GI: Reports nausea. Historical: - Allergies: 18:22 Levofloxacin; nj1 18:22 Taxil; nj1 - PMHx: 18:22 Ovarian CA with mets to lungs; nj1 - Immunization history:: Client reports receiving the 2nd dose of the Covid vaccine. - Social history:: Smoking status: Patient denies any tobacco usage or history of. - Family history:: not pertinent. Screenin:23 [facility] ED Fall Risk Assessment (Adult) History of falling in the last 3 months, nj1 including since admission No falls in past 3 months (0 pts) Confusion or Disorientation No (0 pts) Intoxicated or Sedated No (0 pts) Impaired Gait No (0 pts) Mobility Assist Device Used No (0 pt) Altered Elimination No (0 pt) Score/Fall Risk Level 0 - 2 = Low Risk Oriented to surroundings, Maintained a safe environment, Hourly rounding (assess needs \T\ fall precautionary measures) done. Abuse screen: Denies threats or abuse. Denies injuries from another. Nutritional screening: No deficits noted. Tuberculosis screening: No symptoms or risk factors identified. Assessment: 19:00 Reassessment: Patient appears in no apparent distress at this time. Patient and/or nj1 family updated on plan of care and expected duration. Pain level reassessed. Patient is alert, oriented x 3, equal unlabored respirations, skin warm/dry/pink. 20:00 Reassessment: Patient appears in no apparent distress at this time. Patient and/or nj1 family updated on plan of care and expected duration. Pain level reassessed. Patient is alert, oriented x 3, equal unlabored respirations, skin warm/dry/pink. 21:28 Reassessment: pt reports nausea is returning. assisted pt to bathroom via wheelchair. as6 22:15 Pain: Complains of pain in abdomen. GI: Reports nausea. as6 06 00:43 Reassessment: Patient appears in no apparent distress at this time. Patient and/or jb4 family updated on plan of care and expected duration. Pain level reassessed. Patient is alert, oriented x 3, equal unlabored respirations, skin warm/dry/pink. 07:00 Reassessment: RECD REPORT FROM BERNA BRADLEY. 72YO WF P/W VOMITING 2/2 CHEMO. PT ON ER HOLD. bp Vital Signs: 01/14 18:13 BP 145 / 90; Pulse 116; Resp 22; Temp 98.8(O); Pulse Ox 90% on R/A; Weight 72.12 kg; nj1 Height 5 ft. 6 in. ; 19:16 BP 158 / 88; Pulse 114; Resp 22; Pulse Ox 97% on 3 lpm NC; nj1 20:00 BP 145 / 74; Pulse 110; Resp 16; Pulse Ox 99% on 2 lpm NC; nj1 21:28 BP 139 / 80; Pulse 111; Resp 21 S; Pulse Ox 96% on 2 lpm NC; as6 22:32 BP 148 / 85; Pulse 104; Resp 18 S; Pulse Ox 98% on 2 lpm NC; as6 23:36 BP 127 / 72; Pulse 103; Resp 16 S; Pulse Ox 95% on R/A; as6 01/15 00:30 BP 126 / 73; Pulse 97; Resp 13; Pulse Ox 95% on R/A; jb4 01/14 18:13 Body Mass Index 25.66 (72.12 kg, 167.64 cm) banner ED Course: 01/14 18:20 Patient arrived in ED. nj1 18:21 Deborah Germain, RN is Primary Nurse. nj1 18:21 Damian Nicole MD is Attending Physician. rt 18:22 Triage completed. nj1 18:23 Arm band placed on. nj1 18:25 Patient has correct armband on for positive identification. Bed in low position. Call banner light in reach. Adult w/ patient. 21:53 Attending Physician role handed off by Damian Nicole MD sp4 21:53 Familia Rocha MD is Attending Physician. sp4 23:28 Abdomen In Process Unspecified. EDMS 01/15 01:20 Mo Blackwood MD is Hospitalizing Provider. sp4 07:00 No provider procedures requiring assistance completed. Patient admitted, IV remains in jl7 place. intact, No redness/swelling at site. 07:03 Primary Nurse role handed off by Deborah Germain, MIRNA bp 07:03 Gavin Redmond, RN is Primary Nurse. bp Administered Medications: 01/14 18:48 Drug: Ondansetron IVP 4 mg Route: IVP; Site: right hand; nj1 19:30 Follow up: Response: No adverse reaction nj1 18:49 Drug: NS 0.9% IV 1000 ml Route: IV; Rate: 1 bolus; Site: right hand; nj1 19:50 Drug: Ondansetron IVP 4 mg Route: IVP; Site: right hand; nj1 20:15 Follow up: Response: No adverse reaction; Nausea is decreased nj1 20:14 Drug: NS 0.9% IV 500 ml Route: IV; Rate: bolus; Site: right hand; nj1 22:21 Drug: morphine IVP or IV 4 mg Route: IVP; Infused Over: 4 mins; Site: right hand; as6 22:21 Drug: NS 0.9% IV 1000 ml Route: IV; Rate: 125 ml/hr; Site: right hand; as6 22:21 Drug: Ondansetron IVP 4 mg Route: IVP; Site: right hand; as6 22:21 Drug: metoCLOPramide IVP 10 mg Route: IVP; Site: right hand; as6 Medication: 21:29 VIS not applicable for this client. as6 Outcome: 01/15 01:20 Decision to Hospitalize by Provider. sp4 07:00 Admitted to ER Hold. Please see [facility] for further documentation. jl7 07:00 Condition: stable 07:00 Instructed on the need for admit. 14:36 Patient left the ED. mb9 Signatures: Dispatcher [employer] EDMS Peña Fuentes, MIRNA RN jb4 Chase Anderson RN RN jl7 Gavin Redmond RN RN bp Slawson, Ashby, RN RN as6 Rossana Garcia RN RN mb9 Damian Nicole MD MD rt Familia Rocha MD MD sp4 Deborah Germain RN RN nj1
--- NOTE | 2023-01-15 01:21 | EDPHYS ---
Physician Documentation [facility] Name: Qing Powell Age: 72 yrs Sex: Female : 1950 Arrival Date: 01/14/2023 Time: 18:10 Bed 16 Private MD: ED Physician Familia Rocha HPI: 01/14 19:10 This 72 yrs old Female presents to ER via EMS with complaints of Nausea/Vomiting. rt 19:10 Patient with history of ovarian cancer presents to the ED after second round of a new rt chemotherapy treatment. This was on Saturday. She has had nausea and vomiting since about 5 AM. Denies any abdominal pain. Patient states that she has been unable to keep any medicines down by mouth. States that she will get modest relief with Phenergan. Symptoms are moderate severity, no other aggravating or alleviating factors.. Historical: - Allergies: 18:22 Levofloxacin; nj1 18:22 Taxil; nj1 - PMHx: 18:22 Ovarian CA with mets to lungs; nj1 - Immunization history:: Client reports receiving the 2nd dose of the Covid vaccine. - Social history:: Smoking status: Patient denies any tobacco usage or history of. - Family history:: not pertinent. ROS: 19:10 Constitutional: Negative for fever, chills, and weight loss, Cardiovascular: Negative rt for chest pain, palpitations, and edema, Respiratory: Negative for shortness of breath, cough, wheezing, and pleuritic chest pain, MS/Extremity: Negative for injury and deformity, Skin: Negative for injury, rash, and discoloration, Neuro: Negative for headache, weakness, numbness, tingling, and seizure, Psych: Negative for depression, anxiety, suicide ideation, homicidal ideation, and hallucinations. 19:10 Abdomen/GI: Positive for nausea and vomiting, Negative for abdominal pain. Exam: 19:10 Constitutional: This is a well developed, well nourished patient who is awake, alert, rt and in no acute distress. Head/Face: Normocephalic, atraumatic. Chest/axilla: Normal chest wall appearance and motion. Nontender with no deformity. No lesions are appreciated. Cardiovascular: Regular rate and rhythm with a normal S1 and S2. No gallops, murmurs, or rubs. Normal PMI, no JVD. No pulse deficits. Respiratory: Lungs have equal breath sounds bilaterally, clear to auscultation and percussion. No rales, rhonchi or wheezes noted. No increased work of breathing, no retractions or nasal flaring. Abdomen/GI: Soft, non-tender, with normal bowel sounds. No distension or tympany. No guarding or rebound. No evidence of tenderness throughout. Skin: Warm, dry with normal turgor. Normal color with no rashes, no lesions, and no evidence of cellulitis. MS/ Extremity: Pulses equal, no cyanosis. Neurovascular intact. Full, normal range of motion. Neuro: Awake and alert, GCS 15, oriented to person, place, time, and situation. Cranial nerves II-XII grossly intact. Motor strength 5/5 in all extremities. Sensory grossly intact. Cerebellar exam normal. Normal gait. Psych: Awake, alert, with orientation to person, place and time. Behavior, mood, and affect are within normal limits. 19:55 ECG was reviewed by the Attending Physician. rt Vital Signs: 18:13 BP 145 / 90; Pulse 116; Resp 22; Temp 98.8(O); Pulse Ox 90% on R/A; Weight 72.12 kg; nj1 Height 5 ft. 6 in. ; 19:16 BP 158 / 88; Pulse 114; Resp 22; Pulse Ox 97% on 3 lpm NC; nj1 20:00 BP 145 / 74; Pulse 110; Resp 16; Pulse Ox 99% on 2 lpm NC; nj1 21:28 BP 139 / 80; Pulse 111; Resp 21 S; Pulse Ox 96% on 2 lpm NC; as6 22:32 BP 148 / 85; Pulse 104; Resp 18 S; Pulse Ox 98% on 2 lpm NC; as6 23:36 BP 127 / 72; Pulse 103; Resp 16 S; Pulse Ox 95% on R/A; as6 01/15 00:30 BP 126 / 73; Pulse 97; Resp 13; Pulse Ox 95% on R/A; jb4 01/14 18:13 Body Mass Index 25.66 (72.12 kg, 167.64 cm) nj1 MDM: 01/14 18:25 Patient medically screened. rt 22:14 Differential diagnosis: gastritis. Data reviewed: vital signs, nurses notes, EMS sp4 record, lab test result(s), CBC, electrolytes, hepatic panel. ED course: Patient is feeling still unwell. I will repeat nausea medications also will administer some morphine for abdominal cramps.. Will reassess at midnight.. 01/15 01:18 Consideration of Admission/Observation Patient was admitted/placed on observation. sp4 Escalation of care including admission/observation considered. Management of patient was discussed with the following: Hospitalist: Admission team . ED course: Since CAT scan revealed no sign of bowel obstruction, large amount of residual stool throughout the colon, 4.4 cm right ovarian cyst, loculated pleural effusions bilaterally, moderate right lung base atelectasis. Patient reports that she is still feeling unwell and decision was made to admit patient for nausea management, IV hydration, and for clear liquid advancement. . 01/14 18:35 Order name: CBC with Diff; Complete Time: 19:32 rt 01/14 18:35 Order name: CMP; Complete Time: 19:32 rt 01/14 18:35 Order name: Lipase; Complete Time: 19:32 rt 01/15 04:52 Order name: CBC with Automated Diff EDMS 01/15 05:03 Order name: Basic Metabolic Panel EDMS 01/15 05:03 Order name: Magnesium EDMS 01/15 05:26 Order name: Manual Differential EDMS 01/15 07:26 Order name: Urinalysis w/ reflexes EDMS / 22:46 Order name: Abdomen EDMS 01/14 19:41 Order name: EKG; Complete Time: 19:42 rt 01/14 19:41 Order name: EKG - Nurse/Tech; Complete Time: 19:47 rt EC/05 19:55 Rate is 109 beats/min. Rhythm is regular, Sinus tachycardia with No ectopy. QRS Ranger is rt Normal. ID interval is normal. QRS interval is normal. QT interval is normal. No Q waves. T waves are Normal. No ST changes noted. Interpreted by me. Administered Medications: 18:48 Drug: Ondansetron IVP 4 mg Route: IVP; Site: right hand; nj1 19:30 Follow up: Response: No adverse reaction nj1 18:49 Drug: NS 0.9% IV 1000 ml Route: IV; Rate: 1 bolus; Site: right hand; nj1 19:50 Drug: Ondansetron IVP 4 mg Route: IVP; Site: right hand; nj1 20:15 Follow up: Response: No adverse reaction; Nausea is decreased nj1 20:14 Drug: NS 0.9% IV 500 ml Route: IV; Rate: bolus; Site: right hand; nj1 22:21 Drug: morphine IVP or IV 4 mg Route: IVP; Infused Over: 4 mins; Site: right hand; as6 22:21 Drug: NS 0.9% IV 1000 ml Route: IV; Rate: 125 ml/hr; Site: right hand; as6 22:21 Drug: Ondansetron IVP 4 mg Route: IVP; Site: right hand; as6 22:21 Drug: metoCLOPramide IVP 10 mg Route: IVP; Site: right hand; as6 Disposition Summary: 01/15/23 01:20 Hospitalization Ordered Hospitalization Status: Observation sp4 Provider: Mo Blackwood Condition: Stable sp4 Problem: new sp4 Symptoms: have improved sp4 Bed/Room Type: Standard sp4 Location: Telemetry/MedSurg (observation)(01/15/23 12:16) dw Room Assignment: 408(01/15/23 12:16) dw Diagnosis - Vomiting, unspecified sp4 - Intractable vomiting, gastroenteritis, vomiting secondary to chemotherapy. sp4 Forms: - Medication Reconciliation Form sp4 - SBAR form sp4 Signatures: Dispatcher [employer] EDStephanie Devine RN Leila Akhtar RN RN dw Lloyd Vinson RN RN as6 Damian Nicole MD MD rt Familia Rocha MD MD sp4 Deborah Germain RN RN nj1 Corrections: (The following items were deleted from the chart) 01/15 00:20 00:18 Abdomen Pelvis Wo Con+CT.RAD.BRZ ordered. EDMS EDMS 01:56 01:20 Telemetry/MedSurg (observation) sp4 mw 01:56 01:20 sp4 mw 12:16 01:56 [facility] ER HOLD mw 12:16 01:56 ERHOLD- mw dw
--- NOTE | 2023-01-15 01:47 | P.HP ---
Certification for Inpatient Patient admitted to: Observation With expected LOS: <2 Midnights Patient will require the following post-hospital care: None Practitioner: I am a practitioner with admitting privileges, knowledge of patient current condition, hospital course, and medical plan of care. Services: Services provided to patient in accordance with Admission requirements found in Title 42 Section 412.3 of the Code of Federal Regulations <Jose David - Last Filed: 01/15/23 01:43> Patient History Date of Service: 01/15/23 Reason for admission: Intractable vomiting History of Present Illness: 72-year-old female with history of ovarian cancer with metastasis on chemotherapy presents emergency department chief complaint of vomiting. She received her first dose of the new chemo medication on Saturday carboplatin, fosaprepitant, NABpaclitaxel, also recieved Zofran/decadron and pegfilgrastim. She had been feeling okay last 24 to 48 hours but this morning began having nausea, unable to tolerate anything by mouth including clear liquids throughout the day. Multiple episodes of vomiting. She was evaluated here in the emergency department her labs are significant for white blood cell count 14.2 platelets 136 sodium [address] abdomen pelvis was performed which was negative for acute findings. ED provider wishes to admit under observation for intractable vomiting. - Past Medical/Surgical History -: Ovarian cancer with mets -: None Psychosocial/ Personal History: Patient lives at home with family - Family History Family History: Reviewed- Non-Contributory <Jose David - Last Filed: 01/15/23 01:43> Date of Service: 01/15/23 <Mo Blackwood - Last Filed: 01/15/23 13:51> Review of Systems 10-point ROS is otherwise unremarkable Gastrointestinal: Nausea, Vomiting, Abdominal Pain <Jose David - Last Filed: 01/15/23 01:43> Physical Examination - Physical Exam General: Alert, In no apparent distress, Oriented x3, Obese HEENT: Atraumatic, PERRLA, Mucous membr. moist/pink, EOMI, Sclerae nonicteric Neck: Supple, 2+ carotid pulse no bruit, No LAD, Without JVD or thyroid abnormality Respiratory: Clear to auscultation bilaterally, Normal air movement Cardiovascular: Regular rate/rhythm, Normal S1 S2 Capillary refill: <2 Seconds Gastrointestinal: Normal bowel sounds, No tenderness Musculoskeletal: No tenderness Integumentary: No rashes Neurological: Normal speech, Normal strength at 5/5 x4 extr, Normal tone, Normal affect - Studies Laboratory Data (last 24 hrs) 01/14/23 18:56: Sodium 135 L, Potassium 3.5, BUN 8, Creatinine 0.71, Glucose 119 H, Total Bilirubin 0.6, AST 21, ALT 26, Alkaline Phosphatase 97, Lipase 30 01/14/23 18:56: WBC 14.20 H, Hgb 13.1, Hct 40.3, Plt Count 136 L <Jose David - Last Filed: 01/15/23 01:43> - Studies Laboratory Data (last 24 hrs) 01/14/23 18:56: Sodium 135 L, Potassium 3.5, BUN 8, Creatinine 0.71, Glucose 119 H, Total Bilirubin 0.6, AST 21, ALT 26, Alkaline Phosphatase 97, Lipase 30 01/14/23 18:56: WBC 14.20 H, Hgb 13.1, Hct 40.3, Plt Count 136 L <Mo Blackwood - Last Filed: 01/15/23 13:51> Assessment and Plan - Plan Assessment: Intractable nausea/vomiting Stage IV ovarian cancer Plan: Intractable nausea/vomiting CT negative for acute findings, likely adverse effect of chemotherapy. Continue IV fluids, n.p.o., as needed antiemetics and as needed pain medications. Advance diet as tolerated. We will need to follow-up with oncology at [facility]. Stage IV ovarian cancer Continue as above. DVT PPX: Lovenox Code status: Full Discharge Plan: Home Plan to discharge in: 24 Hours - Advance Directives Does patient have a Living Will: No Does patient have a Durable POA for Healthcare: No - Code Status/Comfort Care Code Status Assessed: Yes (Full code) Critical Care: No Time Spent Managing Pts Care (In Minutes): 55 <Jose David - Last Filed: 01/15/23 01:43> Physician Review: Patient Assessed, Agree with Above Assessment and Plan <Mo Blackwood - Last Filed: 01/15/23 13:51>
[2023-01-15] MEDS: NA CHLORIDE 0.9% 1,000 ML IV SCH ×4 (03:29→21:30)
[2023-01-15 03:33] VITALS: BMI 25.7
[2023-01-15] MEDS ORDERED: NA CHLORIDE 0.9% 1,000 ML ONE ×2 (03:49→12:28)
[2023-01-15] MEDS ORDERED: PROMETHAZINE INJ 25 MG/ML AMP ONE ×2 (03:49→08:54)
[2023-01-15] MEDS ORDERED: MORPHINE 2 MG/ML SYR ONE ×2 (03:49→14:04)
[2023-01-15] MEDS: PROMETHAZINE INJ 25 MG/ML AMP IV PRN ×3 (03:58→19:42)
[2023-01-15] MEDS: MORPHINE 2 MG/ML SYR IV PRN ×3 (03:59→20:46)
[2023-01-15] MEDS ORDERED: ACETAMINOPHEN 325 MG TABLET PO PRN (04:14)
[2023-01-15 04:34] LABS: Absolute Lymphocytes (CBC) 0.4 K/uL (0.7-4.9); Hematocrit 37.8 % (36.0-45.0); Lymphocytes % 3.7 % (15.3-44.8); MCV 89.7 fL (80-100); MPV 9.7 fL (7.6-11.3); RBC Red Blood Cell Count 4.21 M/uL (3.86-4.86)
[2023-01-15 04:56] LABS: Magnesium 2.2 mg/dL (1.6-2.4); Potassium 4.2 mEq/L (3.5-5.1)
[2023-01-15 05:26] LABS: Blood Morphology Comment NOT SEEN (NOT SEEN); Platelet Estimate ADEQ
[2023-01-15 07:25] LABS: Specific Gravity 1.014 (1.005-1.030); Urine Bilirubin NEGATIVE (Negative); Urine Blood Negative (Negative); Urine Clarity Clear (Clear); Urine Color Light-Yellow (Yellow); Urine Glucose NEGATIVE (Negative); Urine Protein NEGATIVE (Negative); Urine Urobilinogen Normal (Normal); Urine pH 6.5 (5.0-7.0)
[2023-01-15] MEDS ORDERED: ENOXAPARIN 40 MG/0.4 ML SQ ONE (08:54)
[2023-01-15] MEDS: ENOXAPARIN 40 MG/0.4 ML SQ SCH (09:00)
[2023-01-15] MEDS ORDERED: ONDANSETRON 4 MG/2 ML VIAL ONE (09:48)
[2023-01-15] MEDS: ONDANSETRON 4 MG/2 ML VIAL IV PRN (10:05)
--- NOTE | 2023-01-15 12:00 | RAD REPORT ---
EXAM DESCRIPTION: CT - Abdomen Pelvis Wo Contrast - 01/15/2023 6:48 am CLINICAL HISTORY: Abdominal pain. COMPARISON: None. TECHNIQUE: CT scan of the abdomen and pelvis was performed without intravenous contrast. 5 mm axial images were obtained along with coronal and sagittal reformatted images. DOSE OPTIMIZATION: This facility uses dose optimization techniques as appropriate to perform exams, i ncluding at least one of the following techniques: 1. Automated exposure control. 2. Adjustment of the mA and/or kV according to patient size (this includes techniques or standardized protocols for targeted exams where dose is matched to the indication/reason for exam, i.e. extremiti es or head). 3. Use of iterative reconstructive technique. FINDINGS: Lung Bases: There are small loculated pleural effusions in the lung bases bilaterally. The re is moderately severe chronic appearing atelectasis in the right lung base. Liver: Normal. Spleen: Normal. Pancreas: Normal. Gallbladder: Normal. Adrenal Glands: Normal. Kidneys: Normal. Retroperitoneal Structures: Normal. Bowel Survey: The stomach is unremarkable. The small bowel is unremarkable. The appendix is unremarkable. There is a large amount residual stool throughout the colon. Uterus and Adnexa: There is a right ovarian cyst measuring 3.9 x 4.4 cm. Urinary Bladder: Normal. Peritoneal Cavity: Normal. Mesenteric Structures: Normal. Abdominal Wall: No hernia. Bony Structures: No suspicious lesions. IMPRESSION: 1. Large amount of residual stool throughout the colon. 2. 4.4 cm right ovarian cyst in postmenopausal female. Consider a follow-up nonemergent outpatient pe lvic ultrasound for further evaluation. 3. Loculated pleural effusions identified bilaterally. 4. Moderately severe chronic appearing atelectasis in the right lung base. Electronically signed by: Ede Nix MD 01/15/2023 12:43 AM CDT Due to temporary technical issues with the PACS/Fluency reporting system, reports are being signed by the in house radiologists without review as a courtesy to insure prompt reporting. The interpreting radiologist is fully responsible for the content of the report.
[2023-01-15 15:42] LABS: SARS-CoV-2 Antigen Rapid Res Negative (Negative)
[2023-01-15] MEDS ORDERED: BISACODYL E.C. 5 MG TAB PO ONE (20:24)
[2023-01-16] MEDS: MORPHINE 2 MG/ML SYR IV PRN ×2 (00:46→04:30)
[2023-01-16] MEDS: PROMETHAZINE INJ 25 MG/ML AMP IV PRN ×3 (00:50→12:46)
[2023-01-16] MEDS ORDERED: NA CHLORIDE 0.9% 1,000 ML IV ONE (05:02)
[2023-01-16] MEDS: NA CHLORIDE 0.9% 1,000 ML IV SCH ×3 (05:33→17:48)
--- NOTE | 2023-01-16 05:35 | P.PN ---
Date of Service: 01/16/23 Called by nursing staff this morning notified that patient's heart rate was in the 130s. EKG was requested which revealed sinus tachycardia, temperature also noted to be 99.6 today. On exam patient appears ill, drowsy in comparison to yesterday. Her work-up has yet to reveal any clear source of infection. Given her worsening condition, low-grade fever I have ordered additional work-up including blood cultures, lactate, ABG which are now ordered and pending. We will also give bolus of IV fluids and started on empiric antibiotics vancomycin/cefepime.
[2023-01-16] MEDS ORDERED: VANCOMYCIN 1 GM in NA CHLORIDE 0.9% 250 ML IVPB SCH (06:00)
[2023-01-16] MEDS: VANCOMYCIN 1.25 GM in NA CHLORIDE 0.9% 250 ML IVPB SCH ×2 (06:00→18:09)
[2023-01-16 06:16] LABS: Arterial Blood Carboxyhemoglob 1.1 % (0-1.5); Blood Gas Oxyhemoglobin 93.9 % (94-97); Blood O2 Saturation 96.8 % (92-98.5)
[2023-01-16] MEDS ORDERED: NA CHLORIDE 0.9% 250 ML ONE (06:26)
[2023-01-16] MEDS ORDERED: VANCOMYCIN 1 GM/VIAL ONE (06:26)
[2023-01-16] MEDS ORDERED: VANCOMYCIN 500 MG/VIAL ONE (06:26)
[2023-01-16 07:18] LABS: Magnesium 2.2 mg/dL (1.6-2.4)
--- NOTE | 2023-01-16 07:20 | EKG ---
Test Date: 2023-01-14 Test Time: 19:45:04 Foot Press Operator: SERGEY MEASUREMENT RESULTS: Intervals: Rate: 109 DC: 190 QRSD: 78 QT: 312 QTc: 420 [place]: P: 56 DC: 190 QRS: 7 T: 62 INTERPRETIVE STATEMENTS: Sinus tachycardia Possible Left atrial enlargement Borderline ECG No previous ECG available for comparison Electronically Signed On 01-16-23 07:15:00 CDT by Odin West
[2023-01-16] MEDS: ENOXAPARIN 40 MG/0.4 ML SQ SCH (09:01)
[2023-01-16] MEDS: CEFEPIME 1 GM in NA CHLORIDE 0.9% 100 ML IV SCH ×2 (09:01→20:27)
[2023-01-16 10:14] LABS: Absolute Lymphocytes (CBC) 0.2 K/uL (0.7-4.9); Hematocrit 41.4 % (36.0-45.0); Lymphocytes % 10.2 % (15.3-44.8); MCV 89.9 fL (80-100); MPV 9.5 fL (7.6-11.3); RBC Red Blood Cell Count 4.61 M/uL (3.86-4.86)
[2023-01-16 11:17] LABS: Blood Morphology Comment NOT SEEN (NOT SEEN); Dohle Bodies PRESENT; Platelet Estimate DECR; Toxic Granulation 1+
--- NOTE | 2023-01-16 14:33 | EKG ---
Test Date: 2023-01-16 Test Time: 04:52:52 Creative Services Writer: CORBIN MEASUREMENT RESULTS: Intervals: Rate: 134 [place]: 112 QRSD: 68 QT: 372 QTc: 555 [place]: P: [place]: 112 QRS: 14 T: 65 INTERPRETIVE STATEMENTS: Sinus tachycardia Otherwise normal ECG Compared to ECG 01/14/2023 19:45:04 No significant changes Electronically Signed On 01-16-23 14:32:14 CDT by Trey Singh
[2023-01-16] MEDS ORDERED: CHOLESTYRAMINE/ASP 4 GM/PKT PO PRN (17:52)
--- NOTE | 2023-01-16 19:38 | P.PN ---
Subjective Date of Service: 01/16/23 Chief Complaint: Intractable vomiting Overnight, she became tachycardic. This was confirmed to be sinus tachycardia per EKG. She stated that she has also developed non-bloody diarrhea in addition to her nausea/vomiting. She states that she was advised by her oncologist that the symptoms are expected post-chemotherapy. She is requesting transfer to [facility] where her oncologist practices. Transfer request has been initiated. Review of Systems 10-point ROS is otherwise unremarkable Gastrointestinal: Nausea, Vomiting, Diarrhea Physical Examination - Vital Signs Temperature: 98.4 F Blood Pressure: 153/82 Pulse: 114 Respirations: 18 Pulse Ox (%): 96 - Physical Exam General: Alert, Oriented x3, Mild distress HEENT: Atraumatic, Sclerae nonicteric Neck: JVD not distended Respiratory: Diminished Cardiovascular: No edema, No murmurs, Other (tachycardic) Capillary refill: <2 Seconds Gastrointestinal: Soft and benign, Non-distended, No tenderness, No rebound, No guarding, Hyperactive Musculoskeletal: No clubbing Integumentary: No rashes Neurological: Normal speech, Normal affect - Studies Laboratory Data (last 24 hrs) 01/16/23 09:56: WBC 2.40 L, Hgb 13.5, Hct 41.4, Plt Count 121 L 01/16/23 05:20: Sodium 134 L, Potassium 4.0, BUN 12, Creatinine 0.40 L, Glucose 125 H, Magnesium 2.2 Assessment And Plan - Plan # Chemotherapy-Induced Nausea/Vomiting/Diarrhea # Stage IV Metastatic Ovarian Cancer s/p Carboplatin/Fosaprepitant/NAB- Paclitaxel/Pegfilgrastim x 1 (01/11/2023) # SIRS Criteria (Tachycardia, Tachypnea, Leukopenia) secondary to above - no infectious source identified # Chemotherapy-Induced Leukopenia, Thrombocytopenia # Sjogren's Syndrome - CT abdomen/pelvis = "1. Large amount of residual stool throughout the colon. 2. 4.4 cm right ovarian cyst in postmenopausal female. Consider a follow-up nonemergent outpatient pelvic ultrasound for further evaluation. 3. Loculated pleural effusions identified bilaterally. 4. Moderately severe chronic appearing atelectasis in the right lung base." - CT chest requested - Urinalysis unremarkable - Continue empiric vancomycin + cefepime - Lactated Ringers' @ 125 mL/hr - Continue PRN anti-emetics, cholestyramine - NPO - advance diet as tolerated - Hematology/Oncology currently unavailable for consultation - She requested transfer to [facility], where her Oncologist (Dr. Oksana Santos) practices - transfer intiated Mo Blackwood M.D.
[2023-01-16] MEDS: Ringers Lactate 1,000 ML IV SCH (20:27)
--- NOTE | 2023-01-16 20:39 | RAD REPORT ---
EXAM DESCRIPTION: CT - Thorax Wo Con - 01/16/2023 8:11 pm CLINICAL HISTORY: SIRS COMPARISON: Abdomen Pelvis Wo Contrast dated 01/14/2023 TECHNIQUE: Axial thin cut images of the chest were obtained without IV contrast. Multiplanar reforma ts were generated and reviewed. All CT scans are performed using dose optimization technique as appropriate and may include automated exposure control or mA/KV adjustment according to patient size. FINDINGS: Stable patchy right middle and lower lobe airspace opacities with bronchial wall thickenin g. Stable subsegmental platelike atelectasis on the left. 5 millimeter peripheral left lower lobe nod ule, axial image 30, was not included on the prior exam. Small bilateral pleural effusions. Loculated component with adjacent pleural thickening at the right base, measuring up to 2.4 centimeter in thic kness, stable. Additional pleural thickening noted medially extending towards the apex, with disconti nuous areas of calcified plaque on the right. The left small effusion shows resolution of the loculat ed component noted posteriorly on the prior abdominal CT. No pneumothorax. Small mediastinal lymph nodes, the largest measuring up to 1.4 centimeter in the pretracheal space. T hese are nonspecific. Epicardial node measuring 1.2 centimeter is also stable. The heart is not enlar ged. Mild pericardial thickening or trace effusion noted. . No significant aortic or pulmonary artery findings. Assessment is limited in the absence of IV contrast. No chest wall mass or abnormal axillary lymphadenopathy. Evaluation of the solid abdominal structures reveals no suspicious findings. IMPRESSION: Loculated small right pleural effusion. Stable patchy right basilar airspace opacities, which could reflect a chronic or resolving infectious or inflammatory process, versus chronic atelect asis. Improvement of loculated component of the small left pleural effusion. Nonspecific mediastinal and epicardial small lymph nodes, possibly reactive.
[2023-01-17] MEDS: Ringers Lactate 1,000 ML IV SCH ×3 (03:57→21:18)
[2023-01-17] MEDS: VANCOMYCIN 1.25 GM in NA CHLORIDE 0.9% 250 ML IVPB SCH (06:00)
[2023-01-17 06:11] LABS: Absolute Lymphocytes (CBC) 0.3 K/uL (0.7-4.9); Hematocrit 34.9 % (36.0-45.0); MCV 89.4 fL (80-100); MPV 9.8 fL (7.6-11.3)
[2023-01-17 06:23] LABS: Potassium 3.4 mEq/L (3.5-5.1)
[2023-01-17 08:53] LABS: Blood Morphology Comment NOT SEEN (NOT SEEN); Platelet Estimate ADEQ; Platelets, Giant FEW; Smudge Cells FEW
[2023-01-17] MEDS ORDERED: POTASSIUM 25 MEQ EFFERV TAB PO ONE (09:00)
[2023-01-17] MEDS: CEFEPIME 1 GM in NA CHLORIDE 0.9% 100 ML IV SCH ×2 (09:05→21:17)
[2023-01-17] MEDS: ENOXAPARIN 40 MG/0.4 ML SQ SCH (09:06)
[2023-01-17] MEDS: VANCOMYCIN 1.75 GM in NA CHLORIDE 0.9% 500 ML IVPB SCH (18:11)
--- NOTE | 2023-01-17 19:41 | P.PN ---
Subjective Date of Service: 01/17/23 Chief Complaint: Intractable vomiting This morning on rounds, she appears to have improved significantly. She reports mild nausea and diarrhea. She denies any vomiting. She appears more comfortable and has been able to tolerate sips of clear liquid diet. She currently pending transfer to [facility] where her oncologist practices. Review of Systems 10-point ROS is otherwise unremarkable Gastrointestinal: Nausea, Diarrhea Physical Examination - Vital Signs Temperature: 98.1 F Blood Pressure: 138/65 Pulse: 103 Respirations: 16 Pulse Ox (%): 96 Assessment And Plan - Plan - Physical Exam General: Alert, Oriented x3, No distress HEENT: Atraumatic, Sclerae nonicteric Neck: JVD not distended Respiratory: Diminished Cardiovascular: No edema, No murmurs, Regular rate/rhythm Capillary refill: <2 Seconds Gastrointestinal: Soft, Non-distended, No tenderness, No rebound, No guarding, Hyperactive Musculoskeletal: No clubbing Integumentary: No rashes Neurological: Normal speech, Normal affect # Chemotherapy-Induced Nausea/Vomiting/Diarrhea # Stage IV Metastatic Ovarian Cancer s/p Carboplatin/Fosaprepitant/NAB- Paclitaxel/Pegfilgrastim x 1 (01/11/2023) # Possible Sepsis secondary to Pneumonia # Chemotherapy-Induced Leukopenia, Thrombocytopenia # Sjogren's Syndrome - CT abdomen/pelvis = "1. Large amount of residual stool throughout the colon. 2. 4.4 cm right ovarian cyst in postmenopausal female. Consider a follow-up nonemergent outpatient pelvic ultrasound for further evaluation. 3. Loculated pleural effusions identified bilaterally. 4. Moderately severe chronic appearing atelectasis in the right lung base." - CT chest = "loculated small right pleural effusion. Stable patchy right basilar airspace opacities, which could reflect a chronic or resolving infectious or inflammatory process, versus chronic atelectasis. Improvement of loculated component of the small left pleural effusion. Nonspecific mediastinal and epicardial small lymph nodes, possibly reactive." - Urinalysis unremarkable - Continue empiric vancomycin + cefepime - Lactate = 1.5 - Blood cultures = no growth to date - Lactated Ringers' @ 126 mL/hr - Continue PRN anti-emetics, cholestyramine - Clear Liquid Diet - advance diet as tolerated - Hematology/Oncology currently unavailable for consultation - She requested transfer to [facility], where her Oncologist (Dr. Oksana Santos) practices - transfer intiated Mo Blackwood M.D.
[2023-01-18] MEDS: Ringers Lactate 1,000 ML IV SCH (04:12)
[2023-01-18] MEDS: ONDANSETRON 4 MG/2 ML VIAL IV PRN ×2 (04:12→12:14)
[2023-01-18 04:57] LABS: Absolute Lymphocytes (CBC) 0.5 K/uL (0.7-4.9); Hematocrit 34.4 % (36.0-45.0); MCV 88.4 fL (80-100); MPV 9.6 fL (7.6-11.3); RBC Red Blood Cell Count 3.89 M/uL (3.86-4.86)
[2023-01-18 05:08] LABS: Potassium 3.3 mEq/L (3.5-5.1)
[2023-01-18] MEDS: VANCOMYCIN 1.75 GM in NA CHLORIDE 0.9% 500 ML IVPB SCH (05:39)
[2023-01-18] MEDS: POTASSIUM CL SA 10 MEQ TAB PO ONE ×2 (06:25→09:16)
[2023-01-18] MEDS: CEFDINIR 300 MG CAP PO SCH ×3 (09:00→22:35)
[2023-01-18] MEDS: DOXYCYCLINE 100 MG CAP PO SCH ×3 (09:00→22:22)
[2023-01-18] MEDS: ENOXAPARIN 40 MG/0.4 ML SQ SCH (09:16)
[2023-01-18] MEDS: PROMETHAZINE INJ 25 MG/ML AMP IV PRN ×2 (14:08→21:59)
[2023-01-18] MEDS ORDERED: LORazepam 2 MG/ML VIAL IV ONE (14:18)
--- NOTE | 2023-01-18 14:44 | EKG ---
Test Date: 2023-01-18 Test Time: 10:31:16 [employer]: ESTELA MEASUREMENT RESULTS: Intervals: Rate: 105 OH: 152 QRSD: 70 QT: 350 QTc: 462 [place]: P: 65 OH: 152 QRS: 4 T: 43 INTERPRETIVE STATEMENTS: Sinus tachycardia with premature atrial complexes Otherwise normal ECG Compared to ECG 01/16/2023 04:52:52 Atrial premature complex(es) now present Electronically Signed On 01-18-23 14:44:07 CDT by Odin West
--- NOTE | 2023-01-18 18:34 | P.PN ---
Subjective Date of Service: 01/18/23 Chief Complaint: Intractable vomiting This morning on rounds, she appeared comfortable. She was able to tolerate a clear liquid diet. She stated that her diarrhea has slowed and nausea improved. She spoke with her Oncologist, who informed her that management at [facility] would be the same as here, so transfer was cancelled at Ms. Eden's request. Considering discharge later today/tomorrow pending on her ability to tolerate diet. Review of Systems 10-point ROS is otherwise unremarkable Gastrointestinal: Nausea (improved), Diarrhea (improved) Physical Examination - Vital Signs Temperature: 98.2 F Blood Pressure: 139/75 Pulse: 109 Respirations: 18 Pulse Ox (%): 97 Assessment And Plan - Plan - Physical Exam General: Alert, Oriented x3, No distress HEENT: Atraumatic, Sclerae nonicteric Neck: JVD not distended Respiratory: Diminished Cardiovascular: No edema, No murmurs, Regular rate/rhythm Capillary refill: <2 Seconds Gastrointestinal: Soft, Non-distended, No tenderness, No rebound, No guarding, Normoactive Musculoskeletal: No clubbing Integumentary: No rashes Neurological: Normal speech, Normal affect # Chemotherapy-Induced Nausea/Vomiting/Diarrhea # Stage IV Metastatic Ovarian Cancer s/p Carboplatin/Fosaprepitant/NAB- Paclitaxel/Pegfilgrastim x 1 (01/11/2023) # Possible Sepsis secondary to Pneumonia # Chemotherapy-Induced Leukopenia, Thrombocytopenia # Sjogren's Syndrome - CT abdomen/pelvis = "1. Large amount of residual stool throughout the colon. 2. 4.4 cm right ovarian cyst in postmenopausal female. Consider a follow-up nonemergent outpatient pelvic ultrasound for further evaluation. 3. Loculated pleural effusions identified bilaterally. 4. Moderately severe chronic appearing atelectasis in the right lung base." - CT chest = "loculated small right pleural effusion. Stable patchy right basilar airspace opacities, which could reflect a chronic or resolving infectious or inflammatory process, versus chronic atelectasis. Improvement of loculated component of the small left pleural effusion. Nonspecific mediastinal and epicardial small lymph nodes, possibly reactive." - Urinalysis unremarkable - Continue empiric vancomycin + cefepime: transition to cefdinir + doxycycline - Lactate = 1.5 - Blood cultures = no growth to date - Lactated Ringers' @ 126 mL/hr - Continue PRN anti-emetics, cholestyramine - Clear Liquid Diet - advance diet as tolerated - Hematology/Oncology currently unavailable for consultation - She requested transfer to [facility], where her Oncologist (Dr. Oksana Santos) practices - transfer intiated - Transfer cancelled today at Ms. Eden's request Mo Blackwood M.D.
[2023-01-19] MEDS: ONDANSETRON 4 MG/2 ML VIAL IV PRN ×2 (01:24→09:38)
[2023-01-19] MEDS: PROMETHAZINE INJ 25 MG/ML AMP IV PRN ×5 (02:00→22:05)
[2023-01-19 05:18] LABS: Magnesium 1.8 mg/dL (1.6-2.4); Potassium 3.1 mEq/L (3.5-5.1)
[2023-01-19] MEDS ORDERED: KCL 20 MEQ/100 mL IVPB 20 MEQ/100 ML BAG IV ONE (08:00)
[2023-01-19] MEDS ORDERED: MAGNESIUM SULFATE 1 gm IVPB 1 GM/100 ML BAG IV ONE (08:00)
[2023-01-19] MEDS: ENOXAPARIN 40 MG/0.4 ML SQ SCH (09:40)
[2023-01-19] MEDS: CEFDINIR 300 MG CAP PO SCH ×2 (09:40→22:04)
[2023-01-19] MEDS: DOXYCYCLINE 100 MG CAP PO SCH ×2 (09:40→22:04)
[2023-01-19] MEDS: KCL 20 MEQ/100 mL IVPB 20 MEQ/100 ML BAG IV SCH ×2 (11:41→14:55)
[2023-01-19] MEDS ORDERED: NA CHLORIDE 0.9% 100 ML ONE (12:15)
[2023-01-19] MEDS ORDERED: NA CHLORIDE 0.9% 250 ML IV PRN (14:29)
--- NOTE | 2023-01-19 18:59 | P.PN ---
Subjective Date of Service: 01/19/23 Chief Complaint: Intractable vomiting Yesterday, after rounds, she developed nausea/vomiting. This morning, she states that she feels slightly better. She believes that the vomiting was initiated by the PO potassium replacement. She requests that we change her diet back to a clear liquid diet due to her nausea. This morning, she denies any chest pain, palpitations, or shortness of breath. Her diarrhea continues to improve. Review of Systems 10-point ROS is otherwise unremarkable Gastrointestinal: Nausea, Vomiting, Diarrhea Physical Examination - Vital Signs Temperature: 99.0 F Blood Pressure: 127/68 Pulse: 97 Respirations: 16 Pulse Ox (%): 97 Assessment And Plan - Plan - Physical Exam General: Alert, Oriented x3, No distress HEENT: Atraumatic, Sclerae nonicteric Respiratory: Diminished Cardiovascular: No edema, No murmurs, Regular rate/rhythm Gastrointestinal: Soft, Non-distended, No tenderness, Normoactive Musculoskeletal: No clubbing Integumentary: No rashes Neurological: Normal speech, Normal affect # Chemotherapy-Induced Nausea/Vomiting/Diarrhea # Stage IV Metastatic Ovarian Cancer s/p Carboplatin/Fosaprepitant/NAB- Paclitaxel/Pegfilgrastim x 1 (01/11/2023) # Possible Sepsis secondary to Pneumonia # Chemotherapy-Induced Leukopenia, Thrombocytopenia # Sjogren's Syndrome - CT abdomen/pelvis = "1. Large amount of residual stool throughout the colon. 2. 4.4 cm right ovarian cyst in postmenopausal female. Consider a follow-up nonemergent outpatient pelvic ultrasound for further evaluation. 3. Loculated pleural effusions identified bilaterally. 4. Moderately severe chronic appearing atelectasis in the right lung base." - CT chest = "loculated small right pleural effusion. Stable patchy right basilar airspace opacities, which could reflect a chronic or resolving infectious or inflammatory process, versus chronic atelectasis. Improvement of loculated component of the small left pleural effusion. Nonspecific mediastinal and epicardial small lymph nodes, possibly reactive." - Urinalysis unremarkable - Continue cefdinir + doxycycline - Lactate = 1.5 - Blood cultures = no growth to date - Continue PRN anti-emetics, cholestyramine - Changed from Full Liquid back to Clear Liquid Diet - advance diet as tolerated - Hematology/Oncology currently unavailable for consultation - She requested transfer to [facility], where her Oncologist (Dr. Oksana Santos) practices - transfer intiated - Transfer cancelled at Ms. Eden's request Mo Blackwood M.D.
[2023-01-19] MEDS ORDERED: MELATONIN 5 MG TABLET PO PRN (21:26)
[2023-01-19] MEDS ORDERED: DIPHENHYDRAMINE 25 MG TAB/CAP PO ONE (22:16)
[2023-01-20] MEDS: PROMETHAZINE INJ 25 MG/ML AMP IV PRN (02:16)
[2023-01-20 04:23] LABS: Magnesium 1.9 mg/dL (1.6-2.4); Potassium 3.3 mEq/L (3.5-5.1)
[2023-01-20] MEDS: CEFDINIR 300 MG CAP PO SCH ×2 (08:46→20:43)
[2023-01-20] MEDS: DOXYCYCLINE 100 MG CAP PO SCH ×2 (08:46→20:43)
[2023-01-20] MEDS: ENOXAPARIN 40 MG/0.4 ML SQ SCH (08:48)
[2023-01-20] MEDS: KCL 20 MEQ/100 mL IVPB 20 MEQ/100 ML BAG IV SCH ×2 (08:48→12:54)
[2023-01-20] MEDS ORDERED: NA CHLORIDE 0.9% 250 ML IV PRN (09:00)
[2023-01-20] MEDS: ONDANSETRON 4 MG/2 ML VIAL IV PRN ×3 (09:03→21:57)
[2023-01-20] MEDS ORDERED: NA CHLORIDE 0.9% 50 ML ONE (14:22)
--- NOTE | 2023-01-20 15:28 | P.PN ---
Subjective Date of Service: 01/20/23 Chief Complaint: Intractable vomiting Overnight, she had another episode of emesis. This morning, she states that her symptoms have improved. She believes the promethazine is helping her the most. She was able to tolerate clear liquid diet. Will attempt to advance today as tolerated. She denies any chest pain, palpitations, or shortness of breath. Review of Systems 10-point ROS is otherwise unremarkable Gastrointestinal: Nausea, Vomiting Physical Examination - Vital Signs Temperature: 98.4 F Blood Pressure: 130/70 Pulse: 88 Respirations: 14 Pulse Ox (%): 97 Assessment And Plan - Plan - Physical Exam General: Alert, Oriented x3, No distress HEENT: Atraumatic, Sclerae nonicteric Respiratory: Diminished, but clear to auscultation bilaterally Cardiovascular: No edema, No murmurs, Regular rate/rhythm Gastrointestinal: Soft, Non-distended, No tenderness, Normoactive Musculoskeletal: No clubbing Integumentary: No rashes Neurological: Normal speech, Normal affect # Chemotherapy-Induced Nausea/Vomiting/Diarrhea # Stage IV Metastatic Ovarian Cancer s/p Carboplatin/Fosaprepitant/NAB- Paclitaxel/Pegfilgrastim x 1 (01/11/2023) # Possible Sepsis secondary to Pneumonia # Chemotherapy-Induced Leukopenia, Thrombocytopenia # Sjogren's Syndrome - CT abdomen/pelvis = "1. Large amount of residual stool throughout the colon. 2. 4.4 cm right ovarian cyst in postmenopausal female. Consider a follow-up nonemergent outpatient pelvic ultrasound for further evaluation. 3. Loculated pleural effusions identified bilaterally. 4. Moderately severe chronic appearing atelectasis in the right lung base." - CT chest = "loculated small right pleural effusion. Stable patchy right basilar airspace opacities, which could reflect a chronic or resolving infectious or inflammatory process, versus chronic atelectasis. Improvement of loculated component of the small left pleural effusion. Nonspecific mediastinal and epicardial small lymph nodes, possibly reactive." - Urinalysis unremarkable - Continue cefdinir + doxycycline - Lactate = 1.5 - Blood cultures = no growth to date - Continue PRN anti-emetics, cholestyramine - Clear Liquid Diet - advance diet as tolerated - Hematology/Oncology currently unavailable for consultation - She requested transfer to [facility], where her Oncologist (Dr. Oksana Santos) practices - transfer intiated - Transfer cancelled at Ms. Meek's request Mo Blackwood M.D.
[2023-01-20] MEDS: NS KCL 20MEQ 1,000 ML IV SCH (16:53)
[2023-01-20 23:38] VITALS: O2SAT 96
[2023-01-21] MEDS: NS KCL 20MEQ 1,000 ML IV SCH (02:00)
[2023-01-21 06:39] LABS: Potassium 3.6 mEq/L (3.5-5.1)
[2023-01-21 08:50] VITALS: BP 114/63; TEMP 97.6
[2023-01-21] MEDS ORDERED: POTASSIUM CL SA 10 MEQ TAB PO ONE (09:00)
[2023-01-21] MEDS: ONDANSETRON 4 MG/2 ML VIAL IV PRN (09:32)
[2023-01-21] MEDS: DOXYCYCLINE 100 MG CAP PO SCH (09:34)
[2023-01-21] MEDS: CEFDINIR 300 MG CAP PO SCH (09:34)
[2023-01-21] MEDS: ENOXAPARIN 40 MG/0.4 ML SQ SCH (09:38)
--- NOTE | 2023-01-21 09:39 | P.DS ---
Discharge Date: 01/21/23 Disposition: ROUTINE DISCHARGE Discharge Condition: GOOD Reason for Admission: Intractable vomiting Brief History of Present Illness: Pt is a 72-year-old female with history of ovarian cancer with metastasis on chemotherapy presents emergency department chief complaint of vomiting. She received her first dose of the new chemo medication on Saturday carboplatin, fosaprepitant, NABpaclitaxel, also recieved Zofran/decadron and pegfilgrastim. She had been feeling okay last 24 to 48 hours but this morning began having nausea, unable to tolerate anything by mouth including clear liquids throughout the day. Multiple episodes of vomiting. She was evaluated here in the emergency department her labs are significant for white blood cell count 14.2 platelets 136 sodium [address] abdomen pelvis was performed which was negative for acute findings. ED provider wishes to admit under observation for intractable vomiting. Hospital Course: Patient has done well during hospitalization. Patient was having nausea and vomiting but currently patient is tolerating diet. Patient is scheduled to get repeat chemotherapy. Patient will continue with antibiotics and antiemetics. Hopefully, patient will be able to follow-up with her oncologist at [facility] to continue her treatments. Currently patient is doing well and plan is to discharge patient home if patient is tolerating diet. Vital Signs/Physical Exam: Temp Pulse Resp BP Pulse Ox 97.6 F 83 16 114/63 98 01/21/23 08:00 01/21/23 08:00 01/21/23 08:00 01/21/23 08:00 01/21/23 08:00 General: Alert, In no apparent distress, Oriented x3 Laboratory Data at Discharge: WBC 6.40 thou/uL (4.3-10.9) 01/18/23 04:20 Hgb 11.4 g/dL (12.0-15.0) L 01/18/23 04:20 Hct 34.4 % (36.0-45.0) L 01/18/23 04:20 Plt Count 114 thou/uL (152-406) L 01/18/23 04:20 Sodium 137 mEq/L (136-145) 01/21/23 05:28 Potassium 3.6 mEq/L (3.5-5.1) 01/21/23 05:28 BUN 6 mg/dL (7-18) L 01/21/23 05:28 Creatinine 0.41 mg/dL (0.55-1.02) L 01/21/23 05:28 Glucose 106 mg/dL (74-106) 01/21/23 05:28 Magnesium 1.9 mg/dL (1.6-2.4) 01/20/23 03:39 Total Bilirubin 0.6 mg/dL (0.2-1.0) 01/14/23 18:56 AST 21 U/L (15-37) 01/14/23 18:56 ALT 26 U/L (13-56) 01/14/23 18:56 Alkaline Phosphatase 97 U/L (45-117) 01/14/23 18:56 Lipase 30 U/L (13-75) 01/14/23 18:56 Home Medications: Acetaminophen [Tylenol] 325 mg PO PRN 01/15/23 Famotidine [Pepcid] 20 mg PO EVERY 7TH DAY PRN 01/15/23 Hydroxychloroquine [Plaquenil*] 200 mg PO BID 01/15/23 Ondansetron [Zofran (Odt)*] 8 mg PO PRN 01/15/23 Promethazine Tab [Phenergan*] 12.5 mg PO PRN PRN 01/15/23 predniSONE [Prednisone] 20 mg PO DAILY 01/15/23 Cefdinir [Cefdinir*] 300 mg PO BID #10 cap 01/21/23 Doxycycline Hyclate 100 mg PO BID #14 tab 01/21/23 Ondansetron [Zofran] 4 mg PO Q6H PRN #30 tab 01/21/23 New Medications: Cefdinir [Cefdinir*] 300 mg PO BID #10 cap Doxycycline Hyclate 100 mg PO BID #14 tab Ondansetron [Zofran] 4 mg PO Q6H PRN #30 tab PRN Reason: Nausea / Vomiting Physician Discharge Instructions: -DC IV and DC home -Follow-up with PCP in 1 to 2 weeks -Follow-up with Oncology in 1 to 2 weeks -Please call Dr. Ackerman at [phone] if any questions regarding hospital stay -Please call nursing station at [phone] if any nursing or medication questions -Return to the emergency room if symptoms worsen Diet: Regular Activity: Fall precautions Followup: Shyanne Bautista MD [Primary Care Provider] - Time spent managing pt's care (in minutes): 35
== END 2023-01-21 11:20 | disposition home or self-care (01) | DRG 394 ==
LOC: ER 18:10 → ERHOLD 01-15 02:18 → 4TH 01-15 14:20 → OBSVTOIN 01-16 15:28
PROVIDERS: ADMIT Internal Medicine; ATTEND Hospitalist
DX: K52.1 Toxic gastroenteritis and colitis (principal); C56.9 Malignant neoplasm of unspecified ovary; C78.00 Secondary malignant neoplasm of unspecified lung; R65.10 Systemic inflammatory response syndrome (SIRS) of non-infectious origin without acute organ dysfunction; D70.1 Agranulocytosis secondary to cancer chemotherapy; D69.59 Other secondary thrombocytopenia; M35.00 Sjogren syndrome, unspecified; T45.1X5A Adverse effect of antineoplastic and immunosuppressive drugs, initial encounter; Z88.1 Allergy status to other antibiotic agents; Z88.8 Allergy status to other drugs, medicaments and biological substances; Z79.52 Long term (current) use of systemic steroids; Z79.899 Other long term (current) drug therapy; Z20.822 Contact with and (suspected) exposure to COVID-19
CPT/HCPCS: 36415; 71250; 74176; 80048; 80053; 80202; 81003; 82805; 82947; 83605; 83690; 83735; 84132; 85025; 87040; 87811; 93005; 94760; 96374; 96375; 99285; G0378; J0692; J1650; J2270; J2405; J2550; J2765; J3475; J3480; J7030; J7040; J7050; J7120

== ENCOUNTER 2024-09-15 08:04 | Inpatient (IN) | payer OTHER ==
[2024-09-15] MEDS ORDERED: NA CHLORIDE 0.9% 1,000 ML ONE ×3 (09:01→23:50)
[2024-09-15] MEDS ORDERED: LACTULOSE 20 GM/30 ML UCUP ONE (09:01)
[2024-09-15 09:03] LABS: Absolute Lymphocytes (CBC) 0.4 K/uL (0.7-4.9); Absolute Monocytes 0.8 K/uL (0.1-1.3); Absolute Neutrophil 5.5 K/uL (1.8-8.0); Basophils % 0.2 % (0-1.3); Eosinophils % 0.3 % (0-4.4); Hematocrit 37.5 % (36.0-45.0); Hemoglobin 12.9 g/dL (12.0-15.0); Lymphocytes % 6.5 % (15.3-44.8); MCH 31.1 pg (27.0-35.0); MCHC 34.3 g/dL (32.0-36.0); MCV 90.7 fL (80-100); MPV 7.5 fL (7.6-11.3); Monocytes % 11.8 % (3.3-12.3); Neutrophils % 81.2 % (41.7-73.7); Platelets 317 thou/uL (152-406); RBC Red Blood Cell Count 4.14 M/uL (3.86-4.86); Red Cell Distribution Width 15.3 % (12.1-15.2)
[2024-09-15 09:20] LABS: Albumin/Globulin Ratio 0.6 (1.1-1.8); Bilirubin Total 0.8 mg/dL (0.2-1.0); Globulin 4.7 g/dL (2.3-3.5); Protein, Total 7.7 g/dL (6.4-8.2)
--- NOTE | 2024-09-15 10:17 | RAD REPORT ---
EXAMINATION: CT Abdomen Pelvis W Contrast CLINICAL INDICATION: Female, 74 years old. CONSTIPATION TECHNIQUE: CT abdomen and pelvis was performed, after the administration of IV contrast, as per [facility] protocol. Axial, sagittal and coronal reconstructions were obtained. One or more of the following dose reduction techniques were used: Automated exposure control, adjustment of the mA and k V according to patient size, and iterative reconstruction. Unless otherwise specified, incidental findings do not require dedicated imaging follow-up. COMPARISON: 01/14/2023 CT abdomen and pelvis FINDINGS: LOWER CHEST: Right basilar loculated effusion component with some marginal smooth enhancement measuri ng 2 cm in thickness, somewhat decreased in size since prior exam. Underlying atelectasis and scarring also partially improved. LIVER: Normal in size and contour. Subcapsular inferior margin fluid density lesions up to 2 cm in si ze, nonspecific, and could relate to simple cysts or sequelae of prior intervention. No other suspicious focal lesion. BILIARY SYSTEM: No suspicious abnormalities. SPLEEN: Normal size. No focal lesion. PANCREAS: No mass, ductal dilation, or jasen-pancreatic fluid. ADRENALS: Normal; no mass. KIDNEYS: Normal size and contour. No hydronephrosis. URINARY BLADDER: Unremarkable. GASTROINTESTINAL TRACT: Small bowel obstruction with air-fluid levels throughout the abdomen. Focal t ransition point seen in the deep pelvis, where tethering of multiple short segments of small bowel is noted, for example see series 201 image 73. Moderate free ascites. No evidence of free air, locali zed collection, or abscess. APPENDIX: Appendix not visualized, but no inflammatory changes in region of appendix. LYMPH NODES: No lymphadenopathy. MUSCULOSKELETAL: No acute or suspicious osseous abnormality. ADDITIONAL FINDINGS: None. IMPRESSION: Sequelae of complete or high-grade distal small bowel obstruction with transition point noted in the deep pelvis, where tethering of multiple short segments of small bowel is noted. Moderate free ascites. Right basilar loculated effusion component and adjacent atelectasis, partially improved since prior e xam. THIS REPORT CONTAINS FINDINGS THAT MAY BE CRITICAL TO PATIENT CARE. The findings were verbally commun icated via telephone to Damian Nicole on 09/15/2024 10:15 AM.
[2024-09-15] MEDS ORDERED: ONDANSETRON 4 MG/2 ML VIAL ONE ×2 (10:38→20:04)
[2024-09-15] MEDS ORDERED: MORPHINE 4 MG/ML SYR ONE (10:39)
[2024-09-15] MEDS ORDERED: LIDOCAINE VISCOUS 2% 10ML ORAL SOLN ONE (11:06)
[2024-09-15] MEDS ORDERED: Mastisol Adhesive Liq ONE (11:08)
--- NOTE | 2024-09-15 11:24 | ER ---
Nurse's Notes [facility] Name: Qing Powell Age: 74 yrs Sex: Female : 1950 Arrival Date: 09/15/2024 Time: 08:04 Bed 13 Private MD: Diagnosis: High-grade small bowel obstruction Presentation: 09/15 08:16 Chief complaint: Patient states: Abdominal pain and constipation since Saturday. N/V ll1 began this morning. Coronavirus screen: Client denies travel out of the [place] in the last 14 days. fatigue, nausea, vomiting. Client presents with at least one sign or symptom that may indicate coronavirus-19. Standard/surgical mask placed on the client. Ebola Screen: Patient denies travel to an Ebola-affected area in the 21 days before illness onset. Initial Sepsis Screen: Does the patient meet any 2 criteria? No. Patient's initial sepsis screen is negative. Does the patient have a suspected source of infection? No. Patient's initial sepsis screen is negative. Risk Assessment: Do you want to hurt yourself or someone else? Patient reports no desire to harm self or others. Onset of symptoms was September 13, 2024. 08:16 Method Of Arrival: Wheelchair ll1 08:16 Acuity: NIKKI 3 ll1 Triage Assessment: 08:20 General: Appears in no apparent distress. Behavior is cooperative, appropriate for age, bp anxious. Pain: Complains of pain in abdomen. EENT: No deficits noted. Neuro: No deficits noted. Cardiovascular: No deficits noted. Respiratory: No deficits noted. GI: Reports constipation. : No signs and/or symptoms were reported regarding the genitourinary system. Derm: No deficits noted. Musculoskeletal: No deficits noted. 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 - Infectious Disease History:: Denies. - Social history:: Smoking status: Patient/guardian denies using tobacco, the patient reports quitting approximately 50 years ago. - Family history:: not pertinent. Screenin:12 [facility] ED Fall Risk Assessment (Adult) History of falling in the last 3 months, ph including since admission No falls in past 3 months (0 pts) Confusion or Disorientation No (0 pts) Intoxicated or Sedated No (0 pts) Impaired Gait No (0 pts) Mobility Assist Device Used No (0 pt) Altered Elimination No (0 pt) Score/Fall Risk Level 0 - 2 = Low Risk Oriented to surroundings, Maintained a safe environment, Hourly rounding (assess needs \T\ fall precautionary measures) done. Abuse screen: Denies threats or abuse. Denies injuries from another. Nutritional screening: No deficits noted. Tuberculosis screening: No symptoms or risk factors identified. Assessment: 08:20 General: Appears in no apparent distress. Behavior is cooperative, appropriate for age, bp anxious. Pain: Complains of pain in abdomen. Neuro: No deficits noted. Cardiovascular: No deficits noted. Respiratory: No deficits noted. 19:05 GI: Bowel sounds present in right lower quadrant Abd is soft Reports nausea, vomiting. rg5 Vital Signs: 08:16 BP 136 / 91; Pulse 127; Resp 18; Pulse Ox 93% on R/A; Weight 72.57 kg; Height 5 ft. 5 ll1 in. ; Pain 7/10; 09:11 BP 124 / 84; Pulse 109; Resp 18; Temp 98.1; Pulse Ox 96% ; ph 10:19 BP 133 / 81; Pulse 105; Resp 18; Pulse Ox 98% on R/A; ph 11:24 BP 131 / 91; Pulse 101; Resp 18; Pulse Ox 91% ; bp 08:16 Body Mass Index 26.63 (72.57 kg, 165.1 cm) ll1 08:16 Pain Scale: Adult ll1 ED Course: 08:06 Patient arrived in ED. im 08:07 Damian Nicole MD is Attending Physician. rt 08:07 Arm band placed on Patient placed in an exam room, on a stretcher. ll1 08:18 Triage completed. ll1 08:24 Gavin Redmond, MIRNA is Primary Nurse. bp 08:56 Initial lab(s) drawn, by me, sent to lab. Inserted saline lock: 22 gauge in left bp forearm, using aseptic technique. Blood collected. Flushed with 10 mL NS. 09:12 Patient has correct armband on for positive identification. Bed in low position. Call ph light in reach. Side rails up X 1. Pulse ox on. NIBP on. Door closed. Noise minimized. Warm blanket given. Pillow given. PO fluids given. 09:37 CT Abd/Pelvis - IV Contrast Only In Process Unspecified. EDMS 10:34 initiated transfer to [facility] as requested by pt. bd 10:39 pt denied at [facility] due to being on saturation at this time, per Stella. bd 11:23 Darin Ackerman MD is Hospitalizing Provider. rt 11:24 NGT: inserted 16 Fr. via right nare. verified placement of air over stomach, verified bp return of gastric contents, to intermittent suction. Returned bile. Patient tolerated well. 19:05 Provided Education on: needs for admit. rg5 19:05 Patient admitted, IV remains in place. rg5 22:47 No provider procedures requiring assistance completed. rg5 Administered Medications: 09:11 Drug: NS 0.9% IV 1000 ml IV at 1 bolus Per protocol; to be given as a bolus over 60 ph minutes Route: IV; Rate: 1 bolus; Site: left forearm; 12:31 Follow up: IV Status: Completed infusion bp 09:11 Drug: Lactulose PO 30 grams 45 ml PO once Volume: 45 ml; Route: PO; ph 09:58 Follow up: Response: No adverse reaction ph 10:45 Drug: morphine IVP or IV 4 mg IVP once over 4 mins Route: IVP; Infused Over: 4 mins; bp Site: left forearm; 10:53 Follow up: Response: No adverse reaction bp 10:45 Drug: Ondansetron IVP 4 mg IVP once; over 2 minutes Route: IVP; Site: left forearm; bp 10:53 Follow up: Response: No adverse reaction bp 11:24 Drug: Viscous Lidocaine Mucous Membrane Liquid (4 %) 10 ml Mucous Membrane once Route: bp Mucous Membrane; 11:45 Drug: Piperacillin-Tazobactam IVPB 3.375 grams IVPB once over 60 mins; (mix in NS 100 bp mL) Route: IVPB; Infused Over: 60 mins; Site: left forearm; Medication: 09:12 VIS not applicable for this client. ph Outcome: 11:24 Decision to Hospitalize by Provider. rt 19:05 Admitted to ER Hold. Please see [facility] for further documentation. rg5 19:05 Condition: stable 19:05 Instructed on the need for admit, 09/16 20:49 Patient left the ED. kb3 Signatures: Dispatcher [employer] EDMS Kathleen Redomnd Patricia, RN RN ph Gavin Redmond, RN RN bp Dejan Godoy RN RN ll1 Camila Luu RN RN kb3 Damian Nicole MD MD rt Rena Carbajal Rommel, RN RN rg5
--- NOTE | 2024-09-15 11:24 | EDPHYS ---
Physician Documentation [facility] Name: Qing Powell Age: 74 yrs Sex: Female : 1950 Arrival Date: 09/15/2024 Time: 08:04 Bed 13 Private MD: ED Physician Damian Nicole HPI: 09/15 10:10 This 74 yrs old Female presents to ER via Wheelchair with complaints of Abdominal Pain, rt Constipation. 10:10 Patient with history of metastatic ovarian cancer on chemotherapy presents to the ED rt with progressively worsening constipation. She states that this constipation is a result of her chemotherapy. She is trying avoid any opiates, obtain Tylenol for her pain. Has been taking Dulcolax, Colace to no relief. Denies other acute complaints at this time, symptoms are moderate in severity, no other aggravating or alleviating factors.. 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 - Infectious Disease History:: Denies. - Social history:: Smoking status: Patient/guardian denies using tobacco, the patient reports quitting approximately 50 years ago. - Family history:: not pertinent. ROS: 10:10 Constitutional: Negative for fever, chills, and weight loss, Cardiovascular: Negative rt for chest pain, palpitations, and edema, Respiratory: Negative for shortness of breath, cough, wheezing, and pleuritic chest pain, MS/Extremity: Negative for injury and deformity, Skin: Negative for injury, rash, and discoloration, Neuro: Negative for headache, weakness, numbness, tingling, and seizure, 10:10 Abdomen/GI: Positive for abdominal pain, constipation, Exam: 10:10 Constitutional: This is a well developed, well nourished patient who is awake, alert, rt and in no acute distress. Head/Face: Normocephalic, atraumatic. Chest/axilla: Normal chest wall appearance and motion. Nontender with no deformity. No lesions are appreciated. Cardiovascular: Regular rate and rhythm with a normal S1 and S2. No gallops, murmurs, or rubs. Normal PMI, no JVD. No pulse deficits. Respiratory: Lungs have equal breath sounds bilaterally, clear to auscultation and percussion. No rales, rhonchi or wheezes noted. No increased work of breathing, no retractions or nasal flaring. Skin: Warm, dry with normal turgor. Normal color with no rashes, no lesions, and no evidence of cellulitis. MS/ Extremity: Pulses equal, no cyanosis. Neurovascular intact. Full, normal range of motion. 10:10 ECG was reviewed by the Attending Physician. 10:10 Abdomen/GI: Mild tenderness diffusely without rebound, guarding, distention, Vital Signs: 08:16 BP 136 / 91; Pulse 127; Resp 18; Pulse Ox 93% on R/A; Weight 72.57 kg; Height 5 ft. 5 ll1 in. ; Pain 7/10; 09:11 BP 124 / 84; Pulse 109; Resp 18; Temp 98.1; Pulse Ox 96% ; ph 10:19 BP 133 / 81; Pulse 105; Resp 18; Pulse Ox 98% on R/A; ph 11:24 BP 131 / 91; Pulse 101; Resp 18; Pulse Ox 91% ; bp 08:16 Body Mass Index 26.63 (72.57 kg, 165.1 cm) ll1 08:16 Pain Scale: Adult ll1 MDM: 08:17 Medical Screening Exam initiated rt 11:24 Differential Diagnosis Bowel obstruction, constipation. Data reviewed: vital signs, rt nurses notes, lab test result(s), radiologic studies. Consideration of Admission/Observation Patient was admitted/placed on observation. Management of patient was discussed with the following: Systems Integration Advisor: Discussed with Dr. Verma, recommends NG tube placement, admission to hospitalist service. I considered the following discharge prescriptions or medication management in the emergency department Medications were administered in the Emergency Department. See MAR. Independent interpretation of the following test(s) in the Emergency Department CT Scan: My interpretation is Bowel obstruction seen on interpretation of CT scan images. Care significantly affected by the following chronic conditions: Ovarian cancer. Counseling: I had a detailed discussion with the patient and/or guardian regarding the historical points, exam findings, and any diagnostic results supporting the discharge/admit diagnosis, lab results, radiology results, the need for further work-up and treatment in the hospital. Response to treatment: There is no appreciated change of the patient's symptoms at this time. 09/15 08:31 Order name: CBC with Diff; Complete Time: 09:41 rt 09/15 08:31 Order name: CMP; Complete Time: 09:41 rt 02 08:31 Order name: Lipase; Complete Time: 09:41 rt 02 13:22 Order name: Urinalysis w/ reflexes EDMS 09/15 13:22 Order name: CBC with Automated Diff EDMS 09/15 13:22 Order name: CBC with Automated Diff EDMS 09/15 13:22 Order name: CBC with Automated Diff EDMS 09/15 13:22 Order name: CBC with Automated Diff EDMS 09/15 13:22 Order name: Comprehensive Metabolic Panel EDMS 09/15 13:22 Order name: Comprehensive Metabolic Panel EDMS 09/15 13:22 Order name: Comprehensive Metabolic Panel EDMS 09/15 13:22 Order name: Comprehensive Metabolic Panel EDMS 09/15 13:22 Order name: Magnesium EDMS 09/15 13:22 Order name: Magnesium EDMS 09/15 13:22 Order name: Magnesium EDMS 09/15 13:22 Order name: Magnesium EDMS 09/16 05:09 Order name: Lactate w/ 2H reflex if indic. EDMS 09/16 07:08 Order name: Procalcitonin EDMS 09/15 08:31 Order name: CT Abd/Pelvis - IV Contrast Only; Complete Time: 10:18 rt 09/15 13:41 Order name: Abdomen 1 View (KUB) XRAY bp 04 13:42 Order name: Abdomen 1 View (KUB) XRAY rt 04 14:40 Order name: RAD EDMS 09/16 08:47 Order name: RAD EDMS 09/16 08:49 Order name: RAD EDMS 09/15 13:19 Order name: CONS Physician Consult EDMS 09/15 08:31 Order name: IV Saline Lock; Complete Time: 08:56 rt 09/15 08:31 Order name: Labs collected and sent; Complete Time: 08:56 rt 09/15 08:31 Order name: Misc. Order: need temperature; Complete Time: 09:11 rt 09/15 08:31 Order name: EKG - Nurse/Tech; Complete Time: 09:11 rt 09/15 10:53 Order name: NG Tube; Complete Time: 11:24 rt EC:10 Rate is 109 beats/min. Rhythm is regular, Sinus tachycardia with No ectopy. QRS [place] is rt Normal. [place] interval is normal. QRS interval is normal. QT interval is normal. No Q waves. No ST changes noted. Interpreted by me. Administered Medications: 09:11 Drug: NS 0.9% IV 1000 ml IV at 1 bolus Per protocol; to be given as a bolus over 60 ph minutes Route: IV; Rate: 1 bolus; Site: left forearm; 12:31 Follow up: IV Status: Completed infusion bp 09:11 Drug: Lactulose PO 30 grams 45 ml PO once Volume: 45 ml; Route: PO; ph 09:58 Follow up: Response: No adverse reaction ph 10:45 Drug: morphine IVP or IV 4 mg IVP once over 4 mins Route: IVP; Infused Over: 4 mins; bp Site: left forearm; 10:53 Follow up: Response: No adverse reaction bp 10:45 Drug: Ondansetron IVP 4 mg IVP once; over 2 minutes Route: IVP; Site: left forearm; bp 10:53 Follow up: Response: No adverse reaction bp 11:24 Drug: Viscous Lidocaine Mucous Membrane Liquid (4 %) 10 ml Mucous Membrane once Route: bp Mucous Membrane; 11:45 Drug: Piperacillin-Tazobactam IVPB 3.375 grams IVPB once over 60 mins; (mix in NS 100 bp mL) Route: IVPB; Infused Over: 60 mins; Site: left forearm; Disposition Summary: 09/15/24 11:24 Hospitalization Ordered Notes: Hospitalization Status: Inpatient Admission rt Provider: Darin Ackerman rt Condition: Stable rt Problem: new rt Symptoms: are unchanged rt Bed/Room Type: Standard rt Location: Telemetry/MedSurg (Inpatient)(09/16/24 18:36) bd Room Assignment: 409(09/16/24 18:36) bd Diagnosis - High-grade small bowel obstruction rt Forms: - Medication Reconciliation Form rt - SBAR form rt - Leadership Thank You Letter rt Signatures: Dispatcher [employer] Kathleen Sharma Shelby, RN RN ss Lillie Baez RN RN ph Gavin Redmond RN RN bp Dejan Godoy RN RN ll1 Camila Luu RN RN kb3 Damian Nicole MD MD rt Corrections: (The following items were deleted from the chart) 08:32 08:32 CBC+H.LAB.BRZ ordered. EDMS EDMS 08:32 08:32 COMPREHENSIVE METABOLIC PANEL+C.LAB.BRZ ordered. EDMS EDMS 08:32 08:32 LIPASE+C.LAB.BRZ ordered. EDMS EDMS 08:32 08:32 Abdomen Pelvis W Con+CT.RAD.BRZ ordered. EDMS EDMS 14:43 11:24 Telemetry/MedSurg (Inpatient) rt kb3 14:43 11:24 rt kb3 09/16 16:16 02/04 14:43 [facility] ER HOLD kb3 bd 09/16 16:16 02/04 14:43 ERHOLD- kb3 bd 09/16 16:24 16:16 Telemetry/MedSurg (Inpatient) bd ss 16:24 16:16 412 bd ss 18:36 16:24 [facility] ER HOLD ss bd 18:36 16:24 ERHOLD- ss bd
[2024-09-15] MEDS ORDERED: PIPERACIL/TAZO 3.375 GM VIAL IV ONE ×2 (12:04→20:47)
[2024-09-15] MEDS ORDERED: NA CHLORIDE 0.9% 100 ML ONE ×2 (12:04→20:46)
--- NOTE | 2024-09-15 13:13 | P.HP ---
Certification for Inpatient Patient admitted to: Inpatient With expected LOS: <2 Midnights <Oly Blake - Last Filed: 09/15/24 13:51> Patient History Date of Service: 09/15/24 Reason for admission: Small bowel obstruction History of Present Illness: 74-year-old female with a past medical history of ovarian cancer mets to the lungs, arthritis, presents to the emergency room with abdominal pain. She reports nausea and vomiting that started this morning. Came to the ER for evaluation. She reports constipation for the last week, taking stool softeners twice a day reports last bowel movement on Saturday 4 days ago. She reports moderate lower abdominal distention, abdominal tenderness, that was 8 out of 10 on arrival to the emergency room. She reported taking Tylenol at home. She r eports receiving morphine in the ED, current pain is 0 out of 10. She reports seeing an oncologist at [facility] for ovarian cancer, she was diagnosed in 2022, underwent chemo, hysterectomy. She reports cancer returned, was being treated with oral chemo, with plans to transition to another because it was ineffective. She was evaluated for paracentesis at [facility] yesterday, interventional radio logy stated because of the location of the fluid he would not proceed with the procedure. 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 ER evaluation EKG rate is 109 beats/min. Rhythm is regular, Sinus tachycardia with No ectopy. QRS [place] is Normal. [place] interval is normal. QRS interval is normal. QT interval is normal. No Q waves. No ST changes noted. CT of the abdomen IMPRESSION: Sequelae of complete or high-grade distal small bowel obstruction with transition point noted in the deep pelvis, where tethering of multiple short segments of small bowel is noted.Moderate free ascites.Right basilar loculated effusion component and adjacent atelectasis, partially improved since prior exam. Laboratory evaluation no leukocytosis, left shift 81.2, mild hyponatremia sodium 131, elevated ALT K149, hypoalbuminemia 3.0, - Past Medical/Surgical History -: Ovarian cancer with mets -: Constipation -: Arthritis -: Hysterectomy Psychosocial/ Personal History: Patient lives at home with family - Social History Smoking Status: Never smoker Alcohol use: No CD- Drugs: No Caffeine use: Yes Place of Residence: Home <Oly Blake - Last Filed: 09/15/24 13:51> Date of Service: 09/15/24 <Darin Ackerman - Last Filed: 09/17/24 03:07> Allergies levofloxacin Adverse Reaction (Verified 01/15/23 03:28) Nausea/Vomiting taxil Adverse Reaction (Uncoded 01/15/23 03:28) Shortness of breath Home Medications: Acetaminophen [Tylenol] 325 mg PO PRN 01/15/23 Famotidine [Pepcid] 20 mg PO EVERY 7TH DAY PRN 01/15/23 Hydroxychloroquine [Plaquenil*] 200 mg PO BID 01/15/23 Ondansetron [Zofran (Odt)*] 8 mg PO PRN 01/15/23 Promethazine Tab [Phenergan*] 12.5 mg PO PRN PRN 01/15/23 predniSONE [Prednisone] 20 mg PO DAILY 01/15/23 Cefdinir [Cefdinir*] 300 mg PO BID #10 cap 01/21/23 Doxycycline Hyclate 100 mg PO BID #14 tab 01/21/23 Ondansetron [Zofran] 4 mg PO Q6H PRN #30 tab 01/21/23 Review of Systems 10-point ROS is otherwise unremarkable <Oly Blake - Last Filed: 09/15/24 13:51> Physical Examination - Physical Exam General: Alert, In no apparent distress, Oriented x3 HEENT: Atraumatic, Normocephalic, PERRLA Neck: Supple, 2+ carotid pulse no bruit, JVD not distended Respiratory: Normal air movement, Diminished Cardiovascular: Normal pulses, Regular rate/rhythm Capillary refill: <2 Seconds Gastrointestinal: Distended, Ascites, Tenderness Musculoskeletal: No clubbing, No swelling Integumentary: No breakdown, No significant lesion Neurological: Normal speech, Normal strength at 5/5 x4 extr, Sensation intact Lymphatics: No axilla or inguinal lymphadenopathy - Studies Laboratory Data (last 24 hrs) 09/15/24 09/15/24 08:55 08:55 WBC 6.80 Hgb 12.9 Hct 37.5 Plt Count 317 Sodium 131 L Potassium 4.0 BUN 11 Creatinine 0.64 Glucose 111 H Total Bilirubin 0.8 AST 33 ALT 22 Alkaline Phosphatase 149 H Lipase 25 <Oly Blake - Last Filed: 09/15/24 13:51> Assessment and Plan - Problems (Diagnosis) (1) SBO (small bowel obstruction) Current Visit: Yes Status: Acute (2) Intractable nausea and vomiting Current Visit: Yes Status: Acute (3) Ascites Current Visit: Yes Status: Acute (4) Primary cancer of left ovary with metastasis from ovary to other site Current Visit: Yes Status: Acute - Plan Assessment With small bowel obstruction Intractable nausea vomiting abdominal pain Ascites Secondary to stage IV ovarian cancer mets to the lung admit to MedSur Surgery to consult NG tube, n.p.o., Analgesics, as needed antiemetics, Reglan Pulmonary consult for Right basilar loculated effusion component with some marginal smooth enhancement measuring 2 cm in thickness, somewhat decreased in size since prior exam. Underlying atelectasis O2 2 L keep sats greater than 92% I&O, Follow-up with oncology after discharge Instructed patient to ambulate with family or nursing staff as tolerated Full code DVT Lovenox Diet n.p.o. advance per surgery Disposition Home independent prior Discharge Plan: Home - Advance Directives Does patient have a Living Will: No Does patient have a Durable POA for Healthcare: No - Code Status/Comfort Care Code Status: Full Code Critical Care: No Time Spent Managing Pts Care (In Minutes): 55 <Oly Blake - Last Filed: 09/15/24 13:51> Date of Service: 09/15/24 Patient was seen and examined. Events of the last 24 hours have been noted. Spoke with with DENISE regarding patient's clinical picture after evaluating and examining the patient independently. I performed a substantial part of the MDM during this patient's care today. I personally made or approved the documented management plan and acknowledge its risk of complications. I agree with the findings and documentation provided in the DENISE's notes. Patient clinically doing well. Patient's not having significant amount of pain or a lot of NG tube output. Seen by General surgery. If continues with obstruction then transferred to [place]. <Darin Ackerman - Last Filed: 09/17/24 03:07>
[2024-09-15] MEDS ORDERED: MORPHINE 2 MG/ML SYR IV PRN (13:20)
[2024-09-15] MEDS ORDERED: METOCLOPRAMIDE 10 MG/2mL INJ IV PRN (13:28)
[2024-09-15] MEDS: NA CHLORIDE 0.9% 1,000 ML IV SCH (14:00)
--- NOTE | 2024-09-15 14:40 | RAD REPORT ---
EXAM: AP view(s) of the abdomen Abdomen 1 View (KUB) HISTORY: POST NG PLACEMENT COMPARISON: Same day CT FINDINGS: NG tube tip terminates overlying the lower stomach. Ascites present. Small bowel dilatation better se en on same-day CT. IMPRESSION: Enteric tube tip overlies lower stomach in satisfactory position.
--- NOTE | 2024-09-15 20:04 | CON ---
Date of Consultation: 09/15/2024 Reason For Consultation: Small bowel obstruction. History Of Present Illness: The patient is a 74-year-old female with a history of ovarian cancer, me tastatic to the lungs, who presents to the emergency room with abdominal pain and nausea and vomiting . She states that she has been constipated for the last 4 days. She has taken stool softeners and t hat she is passing gas. The last time was earlier this morning. She denies any sore throat, runny n ose, headaches, dizziness, chest pain, fever, or chills. She had her hysterectomy in [facility]. Her oncologist is in [facility], and patient prefers to be at [facility], [facility], hospital is at capacity when the patient was in the emergency room and we were notified that we c an reconsult [facility] once the patient is admitted to our service for inpatient transfer wh en a bed becomes available. Review of Systems: Otherwise unremarkable. She has gotten chemotherapy about 2-1/2 to 3 weeks ago and she was scheduled to get 1 tomorrow, but they will probably delay until next week. Past Medical History: Ovarian cancer with mets, arthritis. Past Surgical History: Hysterectomy. Allergies: INCLUDE LEVAQUIN AND TAXOL. Social History: She does not smoke or drink alcohol. Family History: Noncontributory. Physical Examination: Vital Signs: Stable and she is currently afebrile. General: She is awake, alert, and oriented x3. Head and Neck: No neck masses. No JVD. Throat clear. Neck is supple. Chest: Clear. Heart: S1, S2. Abdomen: Distended, soft, tender, but no rebound, rigidity, or guarding at this time. She does have ascites clinically. Extremities: Adequately perfused, nontender. Neuro: Nonfocal. Laboratory Data: White count is 6.8, H and H are 12.9 and 37.5. There is a left shift. Chemistry r eviewed. Albumin is 3.0. CT of the abdomen and pelvis reviewed, which shows sequela of a complete o r high grade distal small bowel obstruction with transition point noted in the deep pelvis where teth ering of multiple short segments of small bowel is noted. Moderate free ascites. Right basilar locu lated effusion components and adjacent atelectasis partially improved since prior exam. Assessment: A 74-year-old female with stage IV ovarian cancer with small bowel obstruction. Recommendations: N.p.o., NG tube, IV fluids, IV antibiotics, supportive care for the time being. We will initiate transfer to [facility] as this patient is a complex oncological patient with issues femi t needs to be discussed with her oncologist at [facility]. She may need surgery and she pref ers to have it where her current doctors are, therefore we will manage her conservatively here as umer g as we can and if she does need urgent intervention, I will be happy to take care of the patient. W e will follow closely while in the hospital. NORI/JENNIFER Voice ID: [id number] Report ID: [id number]
[2024-09-15] MEDS: ONDANSETRON 4 MG/2 ML VIAL IV PRN (20:39)
[2024-09-15] MEDS: PIPER TAZO 3.375 GM in NA CHLORIDE 0.9% 100 ML IV SCH (20:52)
[2024-09-16] MEDS ORDERED: PIPERACIL/TAZO 3.375 GM VIAL IV ONE ×2 (04:02→12:23)
[2024-09-16] MEDS ORDERED: NA CHLORIDE 0.9% 100 ML ONE ×2 (04:02→12:23)
[2024-09-16 05:06] LABS: Absolute Lymphocytes (CBC) 0.3 K/uL (0.7-4.9); Absolute Monocytes 0.4 K/uL (0.1-1.3); Absolute Neutrophil 2.9 K/uL (1.8-8.0); Basophils % 0.2 % (0-1.3); Eosinophils % 0.5 % (0-4.4); Hemoglobin 12.1 g/dL (12.0-15.0); Lymphocytes % 7.4 % (15.3-44.8); MCHC 33.5 g/dL (32.0-36.0); MCV 92.5 fL (80-100); MPV 7.3 fL (7.6-11.3); Monocytes % 11.1 % (3.3-12.3); Neutrophils % 80.8 % (41.7-73.7); Nucleated Red Blood Cells % 0.2 % (0-0); Platelets 307 thou/uL (152-406)
[2024-09-16 05:21] LABS: Albumin 2.7 g/dL (3.4-5.0); Albumin/Globulin Ratio 0.6 (1.1-1.8); Anion Gap 11.9 mEq/L (5.0-15.0); Bilirubin Total 0.6 mg/dL (0.2-1.0); Globulin 4.3 g/dL (2.3-3.5); Magnesium 2.2 mg/dL (1.6-2.4); Potassium 3.9 mEq/L (3.5-5.1)
--- NOTE | 2024-09-16 08:46 | RAD REPORT ---
EXAMINATION: ONE VIEW CHEST XR CLINICAL INDICATION: pleural effusion TECHNIQUE: Frontal chest projection is submitted. Examination is limited by patient positioning and t echnique. COMPARISON: 09/15/2024 FINDINGS: Moderate right basilar lung opacity likely a combination of pleural fluid and lung parenchymal consol idation. The left lung appears grossly clear. Trace left pleural fluid. The heart is mildly enlarged in size. Tortuous thoracic aorta. Right-sided port catheter is tip in the SVC/right atrium j unction. Tip of the endotracheal tube descends into the upper abdomen.
--- NOTE | 2024-09-16 08:48 | RAD REPORT ---
EXAM: XR of the abdomen HISTORY: Abdominal pain Follow-up small bowel obstruction COMPARISON: 09/15/2024 FINDINGS: XR of the abdomen shows a several organized small bowel loops in the central and upper abdo men compatible with small bowel obstruction.. Findings appear unchanged since comparison study. Tip of the enteric tube is in the left upper quadrant. No finding to suggest pneumoperitoneum. Right lung base pleural and parenchymal opacification noted, fully described on recent chest radiograph.
--- NOTE | 2024-09-16 11:32 | EKG ---
Test Date: 2024-09-15 Test Time: 09:07:46 Air Conditioning Unit Tester: PH MEASUREMENT RESULTS: Intervals: Rate: 109 RI: 162 QRSD: 70 QT: 330 QTc: 444 Wilson: P: 62 RI: 162 QRS: -3 T: 60 INTERPRETIVE STATEMENTS: Sinus tachycardia Septal infarct, age undetermined Abnormal ECG Compared to ECG 01/18/2023 10:31:16 Myocardial infarct finding now present Atrial premature complex(es) no longer present Electronically Signed On 09-16-24 11:29:47 RELISH BLENDER by Castro López
[2024-09-16 13:59] VITALS: BMI 26.6
--- NOTE | 2024-09-16 15:10 | PN ---
Date of Progress Note: 09/16/2024 Subjective: Patient is awake, alert. No complaint. Vitals stable, afebrile. She is passing gas. Had multiple bowel movements. Her NG tube put out about 200 cc. Her abdominal x-ray reviewed. It s till showed some dilated small bowel, but with the ascites. It is difficult to ascertain whether she is improving radiographically. Her abdomen is soft, nondistended, nontender. Positive bowel sounds . Assessment: Small bowel obstruction, likely partial, improving. Recommendations: Although, the x-ray does not show much improvement, clinically patient is doing wel l. Therefore, we will clamp the NG tube and start clear liquids and hopefully if tolerated, we can d ischarge her in a day or 2. Plan of care discussed with the hospitalist team. /MODL Voice ID: [id number] Report ID: [id number]
[2024-09-16] MEDS: ENOXAPARIN 40 MG/0.4 ML SQ SCH (21:01)
[2024-09-17 03:01] LABS: Calcium Oxalate Crystals- Ur Few /HPF (None Seen); Renal Epithelial <5 /HPF (None Seen); Specific Gravity > 1.030 (1.005-1.030); Sqamous Epithelial <5 /HPF (None Seen); Urine Bacteria <20 /HPF (<20); Urine Bilirubin NEGATIVE (Negative); Urine Blood Negative (Negative); Urine Clarity Turbid (Clear); Urine Color Yellow (Yellow); Urine Culture Reflex Order NOT NEEDED; Urine Glucose NEGATIVE (Negative); Urine Ketones 2+ (Negative); Urine Microscopic Reflex YN ORDER UMIC; Urine Mucus Slight /HPF (None Seen); Urine Nitrite NEGATIVE (Negative); Urine Protein 1+ (Negative); Urine RBC None Seen /HPF (None Seen); Urine Urobilinogen Normal (Normal); Urine WBC <5 /HPF (<5)
--- NOTE | 2024-09-17 03:13 | P.PN ---
Subjective Date of Service: 09/16/24 Patient is doing much better today. She had 4 bowel movements overnight. She denies any nausea or vomiting at this time. She looks much better and she feels anxious to go home. She prefer not to get transferred at this time since she is doing much better. Review of Systems 10-point ROS is otherwise unremarkable Physical Examination - Vital Signs Temperature: 98.2 F Blood Pressure: 149/76 Pulse: 100 Respirations: 19 Pulse Ox (%): 92 - Physical Exam General: Alert, In no apparent distress, Oriented x3 HEENT: Atraumatic, PERRLA, EOMI Neck: Supple, JVD not distended Respiratory: Clear to auscultation bilaterally, Normal air movement Cardiovascular: Regular rate/rhythm, Normal S1 S2 Gastrointestinal: Normal bowel sounds, No tenderness Musculoskeletal: No tenderness Integumentary: No rashes Neurological: Normal speech, Normal tone, Normal affect Lymphatics: No axilla or inguinal lymphadenopathy - Studies Medications List Reviewed: Yes Assessment & Plan - Problems (Diagnosis) (1) SBO (small bowel obstruction) Current Visit: Yes Status: Acute (2) Ascites Current Visit: Yes Status: Acute (3) Intractable nausea and vomiting Current Visit: Yes Status: Acute (4) 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 Small bowel obstruction; it appears to have resolved. Patient having multiple bowel movements. Abdomen is no longer hurting. Patient does not have any tenderness on palpation. Will go ahead and advance her diet as tolerated. Clamp the NG tube at this time. May need a small bowel series. Discussed with General surgery 2. Ovarian cancer with metastasis to the lungs; continue outpatient follow-up with her oncologist. 3. Gi DVT prophylaxis Discharge Plan: Home Plan to discharge in: Greater than 2 days - Advance Directives Does patient have a Living Will: No Does patient have a Durable POA for Healthcare: No - Code Status/Comfort Care Code Status: Full Code Critical Care: No Time Spent Managing PTS Care (In Minutes): 30
[2024-09-17] MEDS: NA CHLORIDE 0.9% 1,000 ML IV SCH (04:04)
[2024-09-17] MEDS: METOCLOPRAMIDE 10 MG/2mL INJ IV SCH (06:00)
[2024-09-17 06:39] LABS: Absolute Eosinophils 0.1 K/uL (0-0.5); Absolute Lymphocytes (CBC) 0.5 K/uL (0.7-4.9); Absolute Monocytes 0.6 K/uL (0.1-1.3); Absolute Neutrophil 2.6 K/uL (1.8-8.0); Basophils % 0.3 % (0-1.3); Eosinophils % 1.5 % (0-4.4); Hematocrit 32.5 % (36.0-45.0); Hemoglobin 10.8 g/dL (12.0-15.0); Lymphocytes % 14.3 % (15.3-44.8); MCH 30.9 pg (27.0-35.0); MCHC 33.2 g/dL (32.0-36.0); MCV 93.2 fL (80-100); MPV 7.3 fL (7.6-11.3); Monocytes % 15.9 % (3.3-12.3); Platelets 306 thou/uL (152-406); RBC Red Blood Cell Count 3.49 M/uL (3.86-4.86); Red Cell Distribution Width 15.8 % (12.1-15.2)
[2024-09-17 06:50] LABS: Albumin 2.6 g/dL (3.4-5.0); Albumin/Globulin Ratio 0.6 (1.1-1.8); Anion Gap 9.7 mEq/L (5.0-15.0); Bilirubin Total 0.5 mg/dL (0.2-1.0); Globulin 4.1 g/dL (2.3-3.5); Magnesium 2.1 mg/dL (1.6-2.4); Phosphorus 1.8 mg/dL (2.5-4.9); Potassium 3.7 mEq/L (3.5-5.1); Protein, Total 6.7 g/dL (6.4-8.2)
--- NOTE | 2024-09-17 07:29 | RAD REPORT ---
Procedure: Chest Single View HISTORY: Cough COMPARISON: September 16, 2024 FINDINGS: No significant change in small right basilar atelectasis. Left lung appears clear Heart is normal size. Nasogastric tube within the stomach. Central venous catheter with its tip at the junction of the SVC and right atrium. IMPRESSION: No significant change since the prior examination
[2024-09-17] MEDS: POTASSIUM 25 MEQ EFFERV TAB PO ONE (07:46)
[2024-09-17 10:42] VITALS: O2SAT 93
[2024-09-17] MEDS: POTASSIUM PHOS IN 0.9 % NACL 15 MMOL/250 ML BAG IV ONE (14:40)
--- NOTE | 2024-09-17 15:30 | RAD REPORT ---
EXAMINATION: Small bowel series CLINICAL INDICATION: Female, 74 years old. SBO COMPARISON: 09/16/2024 09/15/2024. Abdomen CT 09/15/2024 FINDINGS: Polyethylene Combiner film shows a nonspecific bowel gas pattern. No obstruction or free air. No suspicious calcifica tions. Enteric tube tip terminates along the body of the stomach. Gastric size and mucosal fold pattern are normal. No delay in transit of contrast into the small reno l. Mildly prominent caliber of short segments of small bowel in the left flank, up to 3.9 cm, with no evidence of mucosal fold thickening. No intrinsic or extrinsic mass identifiable. Terminal ileum h as normal appearance. Transit time to the colon is within normal limits, 2 hours. No fluoroscopy was performed. Total images acquired:22 IMPRESSION: No evidence of bowel obstruction or mucosal fold thickening. Mildly prominent caliber of short segments of small bowel in the left flank, may suggest a degree of ileus.
[2024-09-17 16:29] VITALS: BP 143/72; TEMP 98.3
== END 2024-09-17 21:39 | disposition home or self-care (01) | DRG 389 ==
LOC: ER 08:04 → ERHOLD 13:13 → 4TH 09-16 20:17
PROVIDERS: ADMIT Hospitalist; ATTEND Hospitalist
PROC: 0DH67UZ Insertion of Feeding Device into Stomach, Via Natural or Artificial Opening (ICD-10-PCS; principal; 2024-09-15)
DX: K56.600 Partial intestinal obstruction, unspecified as to cause (principal); C56.9 Malignant neoplasm of unspecified ovary; C78.00 Secondary malignant neoplasm of unspecified lung; E87.1 Hypo-osmolality and hyponatremia; R18.8 Other ascites; E88.09 Other disorders of plasma-protein metabolism, not elsewhere classified; K59.03 Drug induced constipation; T45.1X5A Adverse effect of antineoplastic and immunosuppressive drugs, initial encounter; Z88.1 Allergy status to other antibiotic agents; Z79.52 Long term (current) use of systemic steroids; Z90.710 Acquired absence of both cervix and uterus; Z87.891 Personal history of nicotine dependence; Z79.899 Other long term (current) drug therapy
CPT/HCPCS: 36415; 71045; 74018; 74019; 74177; 74250; 80053; 81001; 82533; 83605; 83690; 83735; 84100; 84145; 85025; 93005; 96361; 96374; 96375; 99285; J1650; J2405; J2543; J2765; J7030; Q9967

== ENCOUNTER 2024-10-02 10:05 | Emergency (ER) | payer OTHER ==
[2024-10-02 11:43] LABS: Absolute Lymphocytes (CBC) 0.2 K/uL (0.7-4.9); Absolute Monocytes 0.1 K/uL (0.1-1.3); Absolute Neutrophil 4.4 K/uL (1.8-8.0); Basophils % 0.1 % (0-1.3); Eosinophils % 0.2 % (0-4.4); Hematocrit 30.4 % (36.0-45.0); Hemoglobin 10.3 g/dL (12.0-15.0); Lymphocytes % 4.3 % (15.3-44.8); MCH 30.6 pg (27.0-35.0); MCHC 33.9 g/dL (32.0-36.0); MCV 90.4 fL (80-100); MPV 7.3 fL (7.6-11.3); Monocytes % 1.5 % (3.3-12.3); Neutrophils % 93.9 % (41.7-73.7); Nucleated Red Blood Cells % 0.1 % (0-0); Platelets 171 thou/uL (152-406); RBC Red Blood Cell Count 3.36 M/uL (3.86-4.86); Red Cell Distribution Width 15.8 % (12.1-15.2)
[2024-10-02] MEDS ORDERED: ONDANSETRON 4 MG/2 ML VIAL ONE (11:49)
[2024-10-02] MEDS ORDERED: NA CHLORIDE 0.9% 1,000 ML ONE (11:49)
[2024-10-02 11:55] LABS: Albumin 2.5 g/dL (3.4-5.0); Albumin/Globulin Ratio 0.5 (1.1-1.8); Anion Gap 7.6 mEq/L (5.0-15.0); Bilirubin Total 0.9 mg/dL (0.2-1.0); Globulin 4.6 g/dL (2.3-3.5); Potassium 3.6 mEq/L (3.5-5.1); Protein, Total 7.1 g/dL (6.4-8.2)
[2024-10-02 12:33] LABS: Specific Gravity 1.018 (1.005-1.030); Sqamous Epithelial <5 /HPF (None Seen); Urine Bacteria <20 /HPF (<20); Urine Bilirubin NEGATIVE (Negative); Urine Blood Negative (Negative); Urine Clarity Turbid (Clear); Urine Color Yellow (Yellow); Urine Culture Reflex Order NOT NEEDED; Urine Glucose NEGATIVE (Negative); Urine Ketones 1+ (Negative); Urine Microscopic Reflex YN ORDER UMIC; Urine Mucus 2+ /HPF (None Seen); Urine Nitrite NEGATIVE (Negative); Urine Protein TRACE (Negative); Urine RBC None Seen /HPF (None Seen); Urine Urobilinogen 1+ (Normal); Urine WBC <5 /HPF (<5)
--- NOTE | 2024-10-02 12:48 | RAD REPORT ---
EXAMINATION: CT Abdomen Pelvis W Contrast CLINICAL INDICATION: Female, 74 years old. CONSTIPATION TECHNIQUE: CT abdomen and pelvis was performed, after the administration of IV contrast, as per [facility] protocol. Axial, sagittal and coronal reconstructions were obtained. One or more of the following dose reduction techniques were used: Automated exposure control, adjustment of the mA and k V according to patient size, and iterative reconstruction. Unless otherwise specified, incidental findings do not require dedicated imaging follow-up. COMPARISON: 09/25/2024 FINDINGS: LOWER CHEST: Bibasilar platelike atelectasis. Small right loculated effusion component, stable. LIVER: Normal in size and contour. No focal lesion. BILIARY SYSTEM: No suspicious abnormalities. SPLEEN: Normal size. No focal lesion. PANCREAS: No mass, ductal dilation, or jasen-pancreatic fluid. ADRENALS: Normal; no mass. KIDNEYS: Normal size and contour. No hydronephrosis. URINARY BLADDER: Unremarkable. GASTROINTESTINAL TRACT: No evidence of free air, bowel obstruction, or abscess. Interval reduction in caliber of small bowel prior exam, although the configuration of tethering in the right hemipelvis is again perceived Moderate to large ascites, increased in volume since prior exam. Interrupted linea r enhancement along the margins of the parietal peritoneum throughout, a new finding since the prior exam. APPENDIX: Normal appendix. LYMPH NODES: No lymphadenopathy. MUSCULOSKELETAL: No acute or suspicious osseous abnormality. ADDITIONAL FINDINGS: None. IMPRESSION: Progressive free ascites with linear interrupted enhancement along the margins of the parietal perito neum, would suggest superimposed infection or cellularity. Interval improvement of bowel obstruction. Small bowel tethering in the region of the right hemipelvi s is again seen, could relate to presence of adhesions. Stable small loculated pleural effusion component on the right.
--- NOTE | 2024-10-02 13:42 | EDPHYS ---
Physician Documentation [facility] [place], [place] Name: Qing Powell Age: 74 yrs Sex: Female : 1950 Arrival Date: 10/02/2024 Time: 10:05 Bed 6 Private MD: ED Physician Velasquez Valladares HPI: 10/02 10:44 This 74 yrs old Female presents to ER via Wheelchair with complaints of Constipation. rn 10:44 The patient presents with abdominal pain. Onset: The symptoms/episode began/occurred 3 rn day(s) ago. The symptoms do not radiate. Associated signs and symptoms: Pertinent positives: constipation, nausea, vomiting. Modifying factors: The symptoms are alleviated by nothing, the symptoms are aggravated by nothing. Severity of pain: At its worst the pain was mild in the emergency department the pain is unchanged. The patient has experienced similar episodes in the past. Patient reports history of ovarian cancer, stage IV, mets to lungs, has had issues with constipation before but has also had bowel blockages. Reports no bowel movement for 3 days, associated with right sided abdominal pain, also associated with nausea and vomiting. Taking laxatives and stool softeners and not helping. Reports recent admission for IV fluids and had NG tube in, bowel obstruction was resolved. Historical: - Allergies: 10:36 Levofloxacin; ap3 10:36 Taxil; ap3 - PMHx: 10:36 Ovarian CA with mets to lungs; ap3 - PSHx: 10:36 hysterectomy; ap3 - Infectious Disease History:: Denies. - Social history:: Smoking status: Patient denies any tobacco usage or history of. - Family history:: not pertinent. - Hospitalizations: : The patient was recently seen at [facility]. ROS: 10:44 Constitutional: Negative for fever, chills, and weight loss, Cardiovascular: Negative rn for chest pain, palpitations, and edema, Respiratory: Negative for shortness of breath, cough, wheezing, and pleuritic chest pain, Abdomen/GI: Positive for abdominal pain/vomiting/constipation MS/Extremity: Negative for injury and deformity, Skin: Negative for injury, rash, and discoloration, Neuro: Negative for headache, weakness, numbness, tingling, and seizure, Exam: 10:44 Constitutional: Holding emesis bag with constant spitting Head/Face: Normocephalic, rn atraumatic. ENT: Dry mucous membranes Cardiovascular: Tachycardic, regular Respiratory: No increased work of breathing, no retractions or nasal flaring. Abdomen/GI: Soft, right lower quadrant and left upper quadrant tenderness. No distention or peritoneal signs Neuro: Awake and alert, GCS 15 Vital Signs: 10:33 BP 101 / 77; Pulse 113; Resp 18; Temp 97.8; Pulse Ox 97% ; Weight 73.48 kg; Height 5 ap3 ft. 5 in. ; Pain 3/10; 11:30 BP 128 / 75; Pulse 106; Resp 18 S; Pulse Ox 99% on R/A; aa5 14:00 BP 124 / 77; Pulse 107; Resp 16; Pulse Ox 95% ; jl7 10:33 Body Mass Index 26.96 (73.48 kg, 165.1 cm) ap3 10:33 Pain Scale: Adult ap3 MDM: 10:15 Medical Screening Exam initiated rn 10:46 ED course: Patient also with history of Sjogren's. rn 13:40 Differential diagnosis: bowel obstruction, diverticulitis, non-specific abd pain, rn Peptic Ulcer Disease, Ureterolithiasis, urinary tract infection, Worsening of cancer, ascites. Data reviewed: vital signs, nurses notes, lab test result(s), radiologic studies, CT scan, and as a result, I will discharge patient. Counseling: I had a detailed discussion with the patient and/or guardian regarding the historical points, exam findings, and any diagnostic results supporting the discharge/admit diagnosis, lab results, radiology results, the need for outpatient follow up, to return to the emergency department if symptoms worsen or persist or if there are any questions or concerns that arise at home. Special discussion: I discussed with the patient/guardian in detail that at this point there is no indication for admission to the hospital. It is understood, however, that if the symptoms persist or worsen the patient needs to return immediately for re-evaluation. ED course: No acute findings on CT imaging other than possible worsening of cancer. Patient is afebrile and normal WBC, I do not feel that the enhancement seen on CT shows infectious etiology, more likely increased cellularity and related to her cancer. Patient has follow-up with her oncologist coming up and patient states otherwise is glad to hear she does not have another bowel obstruction. Will go home and continue her bowel regimen of stool softeners and laxatives.. 10/02 10:15 Order name: CBC with Diff rn 10/02 10:15 Order name: CMP; Complete Time: 12:54 rn 10/02 10:15 Order name: Lipase; Complete Time: 12:54 rn 10/02 10:15 Order name: Urinalysis w/ reflexes; Complete Time: 12:54 rn 10/02 11:47 Order name: CBC Smear Scan EDUT 10/02 10:15 Order name: CT Abd/Pelvis - IV Contrast Only; Complete Time: 12:54 rn 10/02 10:15 Order name: IV Saline Lock; Complete Time: 11:22 rn 10/02 10:15 Order name: Labs collected and sent; Complete Time: 11:22 rn Administered Medications: 11:55 Drug: NS 0.9% IV 1000 ml IV at 1000 ml once; to be given as a bolus over 60 minutes aa5 Route: IV; Rate: 1000 ml; Site: left antecubital; 13:00 Follow up: Response: No adverse reaction; IV Status: Completed infusion; IV Intake: jl7 1000ml 11:55 Drug: Ondansetron IVP 4 mg IVP once; over 2 minutes Route: IVP; Site: left antecubital; aa5 14:52 Follow up: Response: No adverse reaction jl7 Disposition Summary: 10/02/24 13:41 Discharge Ordered Notes: Location: Home rn Problem: new rn Symptoms: have improved rn Condition: Stable rn Diagnosis - Other ascites rn - Constipation, unspecified rn - Dehydration rn Followup: rn - With: Private Physician - When: As needed - Reason: Recheck today's complaints, Re-evaluation by your physician Discharge Instructions: - Discharge Summary Sheet rn - Ascites rn - Constipation, Adult rn - Dehydration, Adult rn Forms: - Medication Reconciliation Form rn - Antibiotic oil burner mechanic - Prescription Opioid Use rn - Patient Portal Instructions rn - Leadership Thank You Letter rn Signatures: Dispatcher [employer] Velasquez Stevens MD MD rn Calderon, Audri RN RN aa5 Loretta Cadena RN RN Nidhi Saravia RN RN ap3 Chase Anderson RN jl7
--- NOTE | 2024-10-02 13:42 | ER ---
Nurse's Notes [facility] Name: Qing Powell Age: 74 yrs Sex: Female : 1950 Arrival Date: 10/02/2024 Time: 10:05 Bed 6 Private MD: Diagnosis: Other ascites;Constipation, unspecified;Dehydration Presentation: 10/02 10:33 Chief complaint: Patient states: she hasn't had a bowel movement since Saturday ap3 09/29/2024. Patient reports she has a history of blockages, with her last one being two weeks ago. patient currently reports her pain as a 3/10 on the pain scale. patient reports nausea. Coronavirus screen: At this time, the client does not indicate any symptoms associated with coronavirus-19. Ebola Screen: No symptoms or risks identified at this time. Initial Sepsis Screen: Does the patient meet any 2 criteria? HR > 90 bpm. Does the patient have a suspected source of infection? No. Patient's initial sepsis screen is negative. Risk Assessment: Do you want to hurt yourself or someone else? Patient reports no desire to harm self or others. Onset of symptoms was September 29, 2024. 10:33 Method Of Arrival: Wheelchair ap3 10:41 Acuity: NIKKI 2 ap3 Triage Assessment: 10:37 General: Appears uncomfortable, Behavior is calm, cooperative, appropriate for age. ap3 Pain: Complains of pain in abdomen Pain currently is 3 out of 10 on a pain scale. Pain began gradually. Neuro: Level of Consciousness is awake, alert, obeys commands, Oriented to person, place, time, situation, Appropriate for age. Cardiovascular: Patient's skin is warm and dry. Respiratory: Airway is patent Respiratory effort is even, unlabored, Respiratory pattern is regular, symmetrical. GI: Reports constipation, nausea. Historical: - Allergies: 10:36 Levofloxacin; ap3 10:36 Taxil; ap3 - PMHx: 10:36 Ovarian CA with mets to lungs; ap3 - PSHx: 10:36 hysterectomy; ap3 - Infectious Disease History:: Denies. - Social history:: Smoking status: Patient denies any tobacco usage or history of. - Family history:: not pertinent. - Hospitalizations: : The patient was recently seen at [facility]. Screenin:38 [facility] ED Fall Risk Assessment (Adult). Abuse screen: Denies threats or abuse. ap3 Nutritional screening: No deficits noted. Tuberculosis screening: No symptoms or risk factors identified. 14:52 [facility] ED Fall Risk Assessment (Adult) History of falling in the last 3 months, jl7 including since admission No falls in past 3 months (0 pts) Confusion or Disorientation No (0 pts) Intoxicated or Sedated No (0 pts) Impaired Gait No (0 pts) Mobility Assist Device Used Yes (1 pt) Altered Elimination No (0 pt) Score/Fall Risk Level 0 - 2 = Low Risk Oriented to surroundings, Maintained a safe environment. Assessment: 11:30 General: Appears comfortable, Behavior is calm, cooperative. Pain: Denies pain. Neuro: aa5 Level of Consciousness is awake, alert, obeys commands, Oriented to person, place, time, situation. Cardiovascular: Patient's skin is warm and dry. Respiratory: Airway is patent Respiratory effort is even, unlabored, Respiratory pattern is regular, symmetrical. GI: Abdomen is round Last BM was September 29, 2024. Bowel sounds present X 4 quads. Abd is soft and non tender X 4 quads. Reports nausea, decreased oral intake, pt states "I know I don't drink or eat enough" Patient currently denies vomiting. : No signs and/or symptoms were reported regarding the genitourinary system. EENT: No signs and/or symptoms were reported regarding the EENT system. Derm: Skin is pink, warm \\T\\ dry. Musculoskeletal: Range of motion: intact in all extremities. 11:55 Reassessment: Patient is alert, oriented x 3, equal unlabored respirations, skin aa5 warm/dry/pink. Vital Signs: 10:33 BP 101 / 77; Pulse 113; Resp 18; Temp 97.8; Pulse Ox 97% ; Weight 73.48 kg; Height 5 ap3 ft. 5 in. ; Pain 3/10; 11:30 BP 128 / 75; Pulse 106; Resp 18 S; Pulse Ox 99% on R/A; aa5 14:00 BP 124 / 77; Pulse 107; Resp 16; Pulse Ox 95% ; jl7 10:33 Body Mass Index 26.96 (73.48 kg, 165.1 cm) ap3 10:33 Pain Scale: Adult ap3 ED Course: 10:08 Patient arrived in ED. mr 10:15 Velasquez Valladares MD is Attending Physician. rn 10:36 Triage completed. ap3 10:38 Arm band placed on left wrist. ap3 11:22 CBC with Diff Sent. jl7 11:22 CMP Sent. jl7 11:22 Lipase Sent. jl7 11:22 Urinalysis w/ reflexes Sent. jl7 11:23 Accessed peripheral vein via ultrasound, utilizing dynamic ultrasound technique using ss 20G Nexia IV catheter ,sterile technique, per hospital protocol. Clean \\T\\ dry. Dressing intact. Good blood return. Flushes easily. L AC. 11:44 Agatha Fonseca, RN is Primary Nurse. aa5 12:26 CT Abd/Pelvis - IV Contrast Only In Process Unspecified. EDMS 14:52 Patient has correct armband on for positive identification. Provided Education on: jl7 discharge. 14:52 No provider procedures requiring assistance completed. IV discontinued, intact, jl7 bleeding controlled, No redness/swelling at site. Pressure dressing applied. Administered Medications: 11:55 Drug: NS 0.9% IV 1000 ml IV at 1000 ml once; to be given as a bolus over 60 minutes aa5 Route: IV; Rate: 1000 ml; Site: left antecubital; 13:00 Follow up: Response: No adverse reaction; IV Status: Completed infusion; IV Intake: jl7 1000ml 11:55 Drug: Ondansetron IVP 4 mg IVP once; over 2 minutes Route: IVP; Site: left antecubital; aa5 14:52 Follow up: Response: No adverse reaction jl7 Medication: 14:52 VIS not applicable for this client. jl7 Intake: 13:00 IV: 1000ml; Total: 1000ml. jl7 Outcome: 13:41 Discharge ordered by MD. rn 14:52 Discharged to home ambulatory, jl7 14:52 Condition: stable 14:52 Discharge instructions given to patient, family, Instructed on discharge instructions, follow up and referral plans. Demonstrated understanding of instructions, follow-up care, 14:53 Patient left the ED. jl7 Signatures: Dispatcher [employer] EDAR Rossana Orourke, Reg Reg mr Velasquez Valladares MD MD rn Calderon, Audri, RN RN aa5 Loretta Cadena RN RN ss Leal, Jahala, RN RN jl7 Nidhi Hall RN RN ap3 Corrections: (The following items were deleted from the chart) 10:41 10:33 Acuity: NIKKI 3 ap3 ap3 19:50 11:22 Inserted laisha aa5
[2024-10-02 14:13] LABS: Blood Morphology Comment NOT SEEN (NOT SEEN); Platelet Estimate ADEQ; White Blood Cell Scan OK (OK)
[2024-10-03 05:33] VITALS: TEMP 97.8
[2024-10-03 05:36] VITALS: BP 124/77; O2SAT 95
== END 2024-10-02 14:53 | disposition home or self-care (01) ==
LOC: ER 10:05
DX: R18.8 Other ascites (principal); K59.00 Constipation, unspecified; E86.0 Dehydration; Z85.43 Personal history of malignant neoplasm of ovary; Z85.118 Personal history of other malignant neoplasm of bronchus and lung
CPT/HCPCS: 96361; 85025; 81001; 36415; 83690; 80053; 74177; 96374; 99284; Q9967; J2405; J7030

== ENCOUNTER 2024-10-18 07:39 | Emergency (ER) | payer OTHER ==
[2024-10-18] MEDS ORDERED: NA CHLORIDE 0.9% 1,000 ML ONE ×2 (08:33→11:54)
[2024-10-18] MEDS ORDERED: ONDANSETRON 4 MG/2 ML VIAL ONE ×2 (08:33→09:28)
[2024-10-18 09:35] LABS: Absolute Lymphocytes (CBC) 0.3 K/uL (0.7-4.9); Absolute Monocytes 0.2 K/uL (0.1-1.3); Absolute Neutrophil 4.5 K/uL (1.8-8.0); Basophils % 0.5 % (0-1.3); Eosinophils % 0.6 % (0-4.4); Hematocrit 31.9 % (36.0-45.0); Hemoglobin 10.7 g/dL (12.0-15.0); Lymphocytes % 6.8 % (15.3-44.8); MCH 30.9 pg (27.0-35.0); MCHC 33.4 g/dL (32.0-36.0); MCV 92.5 fL (80-100); MPV 7.8 fL (7.6-11.3); Monocytes % 3.9 % (3.3-12.3); Neutrophils % 88.2 % (41.7-73.7); Nucleated Red Blood Cells % 0.1 % (0-0); Platelets 387 thou/uL (152-406); RBC Red Blood Cell Count 3.45 M/uL (3.86-4.86); Red Cell Distribution Width 16.9 % (12.1-15.2)
[2024-10-18 09:54] LABS: Blood Morphology Comment NOT SEEN (NOT SEEN); Platelet Estimate ADEQ; White Blood Cell Scan OK (OK)
[2024-10-18 09:55] LABS: Albumin 2.5 g/dL (3.4-5.0); Albumin/Globulin Ratio 0.5 (1.1-1.8); Anion Gap 10.6 mEq/L (5.0-15.0); Bilirubin Total 0.7 mg/dL (0.2-1.0); Globulin 4.8 g/dL (2.3-3.5); Potassium 3.6 mEq/L (3.5-5.1); Protein, Total 7.3 g/dL (6.4-8.2); Troponin High Sensitivity 13.2 pg/mL (<58.9)
--- NOTE | 2024-10-18 10:46 | RAD REPORT ---
EXAMINATION: CT ABDOMEN AND PELVIS WITHOUT CONTRAST CLINICAL INDICATION: Abdominal pain TECHNIQUE: CT abdomen and pelvis was performed, as per department protocol. IV contrast and oral was not administered.Axial, sagittal and coronal reconstructions were obtained. One or more of the following dose reduction techniques were used: Automated exposure control, adjustment of the mA and/o r kV according to the patient size, and/or iterative reconstruction. Unless otherwise specified, incidental findings do not require dedicated imaging follow-up. [id number]. COMPARISON: September 2024 FINDINGS: The lack of intravenous and oral contrast limits evaluation of solid organs, vessels and bowel. Small loculated right pleural effusion unchanged. Right lower lobe atelectasis Prominence of the left and caudate lobes of the liver may indicate cirrhosis. Spleen, pancreas, adrenals and left kidney appear grossly normal Mild right hydronephrosis. A genitourinary calculus is not seen. No evidence of diverticulitis Mild decrease in the amount of ascites since the prior exam. Moderate ascites is present. A thickened wall surrounds portions of the ascites. Which is without significant change from the prior exam Hysterectomy. No adnexal mass visualized. IMPRESSION: Moderate amount of ascites which has mildly diminished since the prior exam Mild hydronephrosis without visualization of a genitourinary calculus
--- NOTE | 2024-10-18 11:26 | RAD REPORT ---
EXAM: Right upper quadrant ultrasound. CLINICAL HISTORY: Abdominal pain COMPARISON: None FINDINGS: Gallbladder is contracted. This limits evaluation. A gallstone is not visualized. Gallbladder wall not significantly thickened. Biliary tree normal caliber IMPRESSION: Contracted gallbladder without visualization of a gallstone
--- NOTE | 2024-10-18 11:59 | ER ---
Nurse's Notes [facility] Name: Qing Powell Age: 74 yrs Sex: Female : 1950 Arrival Date: 10/18/2024 Time: 07:39 Bed 5 Private MD: Diagnosis: Other ascites;Malignant ascites;Vomiting Presentation: 10/18 07:57 Chief complaint: N/V and upper abdominal pain 3/10 x 3 days. Not tolerating hb fluids/meds. Being treated at [facility] for ovarian cancer, last IV chemo was last week. Coronavirus screen: At this time, the client does not indicate any symptoms associated with coronavirus-19. Ebola Screen: No symptoms or risks identified at this time. Initial Sepsis Screen: Does the patient meet any 2 criteria? No. Patient's initial sepsis screen is negative. Does the patient have a suspected source of infection? No. Patient's initial sepsis screen is negative. Risk Assessment: Do you want to hurt yourself or someone else? Patient reports no desire to harm self or others. Onset of symptoms was October 15, 2024. 07:57 Method Of Arrival: Wheelchair hb 07:57 Acuity: NIKKI 3 hb Triage Assessment: 14:54 GI: Reports. 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 - Infectious Disease History:: Denies. - Social history:: Smoking status: Patient denies any tobacco usage or history of. Screenin:36 [facility] ED Fall Risk Assessment (Adult) History of falling in the last 3 months, jl7 including since admission No falls in past 3 months (0 pts) Confusion or Disorientation No (0 pts) Intoxicated or Sedated No (0 pts) Impaired Gait No (0 pts) Mobility Assist Device Used Yes (1 pt) Altered Elimination No (0 pt) Score/Fall Risk Level 0 - 2 = Low Risk Oriented to surroundings, Maintained a safe environment. Abuse screen: Denies threats or abuse. Denies injuries from another. Nutritional screening: No deficits noted. Tuberculosis screening: No symptoms or risk factors identified. Assessment: 08:45 General: Appears in no apparent distress. uncomfortable, Behavior is calm, cooperative, jl7 appropriate for age. Pain: Complains of pain in abdomen diffusely Pain currently is 3 out of 10 on a pain scale. Neuro: Level of Consciousness is awake, alert, obeys commands, Oriented to person, place, time, situation. Cardiovascular: Patient's skin is warm and dry. Respiratory: Airway is patent Respiratory effort is even, unlabored, Respiratory pattern is regular, symmetrical. GI: Abdomen is non-distended, Last BM was October 13, 2024. Derm: Skin is dry, Skin is pale, Skin temperature is warm. 12:00 Reassessment: Patient and/or family updated on plan of care and expected duration. Pain ap3 level reassessed. Patient is alert, oriented x 3, equal unlabored respirations, skin warm/dry/pink. patient readjusted in bed. family at bedside. 12:05 General: awaiting completion of fluids prior to discharge. ap3 13:50 Reassessment: NS still infusing at this time, on a pressure bag. jl7 Vital Signs: 07:57 BP 131 / 64; Pulse 68; Resp 16; Temp 97.6(O); Pulse Ox 100% on R/A; Weight 65.77 kg; hb Height 5 ft. 5 in. ; Pain 3/10; 09:36 BP 118 / 74; Pulse 92; Resp 15; Pulse Ox 98% ; jl7 12:30 BP 115 / 72; Pulse 94; Pulse Ox 98% on R/A; ap3 13:07 BP 115 / 72; Pulse 97; Pulse Ox 98% ; ap3 14:53 BP 111 / 61; Pulse 95; Resp 18; Pulse Ox 99% on R/A; ap3 07:57 Body Mass Index 24.13 (65.77 kg, 165.1 cm) hb 07:57 Pain Scale: Adult hb ED Course: 07:42 Patient arrived in ED. al6 07:44 Low Toribio MD is Attending Physician. brenda 07:58 Chase Anderson, MIRNA is Primary Nurse. jl7 07:59 Triage completed. hb 07:59 Arm band placed on. hb 08:09 EKG done, by ED staff, reviewed by Low Toribio MD. em1 08:56 Missed attempt(s): 22 gauge in left hand. ap3 09:20 Missed attempt(s): 22 gauge in right antecubital area. Bleeding controlled, band aid jl7 applied, catheter tip intact. 09:30 Initial lab(s) drawn, by me, sent to lab. Inserted saline lock: 22 gauge in left jl7 antecubital area, using aseptic technique. Blood collected. Flushed with 10 mL NS. 09:36 Patient has correct armband on for positive identification. Bed in low position. Call jl7 light in reach. Side rails up X 1. Provided Education on: use of call prakash. Client placed on continuous cardiac and pulse oximetry monitoring. NIBP monitoring applied. shelter monitor on. 09:59 CT Abd/Pelvis - Without Contrast In Process Unspecified. EDMS 11:21 US Abdomen Limited In Process Unspecified. EDMS 14:53 No provider procedures requiring assistance completed. IV discontinued, intact, ap3 bleeding controlled, No redness/swelling at site. Pressure dressing applied. Administered Medications: 09:24 Not Given (Duplicate Order): ondansetron 4 mg IVP once; over [address] [facility] 09:36 Drug: Ondansetron IVP 8 mg IVP once; over 2 minutes Route: IVP; Site: left antecubital; jl7 13:06 Follow up: Response: No adverse reaction; Nausea is decreased ap3 09:37 Drug: NS 0.9% IV 1000 ml IV at 1000 ml once; to be given as a bolus over 60 minutes jl7 Route: IV; Rate: 1000 ml; Site: left antecubital; 14:53 Follow up: IV Status: Completed infusion; IV Intake: 1000ml ap3 11:56 Drug: NS 0.9% IV 1000 ml IV at 1000 ml once; to be given as a bolus over 60 minutes ap3 Route: IV; Rate: 1000 ml; Site: left antecubital; 14:53 Follow up: IV Status: Completed infusion; IV Intake: 1000ml ap3 Medication: 09:36 VIS not applicable for this client. jl7 Intake: 14:53 IV: 1000ml; Total: 1000ml. ap3 14:53 IV: 1000ml; Total: 2000ml. ap3 Outcome: 11:58 Discharge ordered by . brenda 14:54 Discharged to home ambulatory, with family, ap3 14:54 Condition: good 14:54 Discharge instructions given to patient, family, Instructed on discharge instructions, follow up and referral plans. Demonstrated understanding of instructions, follow-up care, 14:54 Patient left the ED. ap3 Signatures: Dispatcher [employer] EDLow Khan MD MD cha Martinez, Eric em1 Shanique Kelly, RN RN Chase Bello RN RN jl7 Nidhi Hall RN RN ap3 Chantal [email or web address] Corrections: (The following items were deleted from the chart) 09:36 08:45 BP 118 / 74; Pulse 92bpm; Resp 15bpm; Pulse Ox 98%; jl7 jl7
--- NOTE | 2024-10-18 12:00 | EDPHYS ---
Physician Documentation [facility] Name: Qing Powell Age: 74 yrs Sex: Female : 1950 Arrival Date: 10/18/2024 Time: 07:39 Bed 5 Private MD: SANTO Physician Low Toribio HPI: 10/18 09:25 This 74 yrs old Female presents to ER via Wheelchair with complaints of brenda reaction to meds, Vomiting. 09:25 The patient presents to the emergency department with nausea, vomiting, that is brenda intermittent. Onset: The symptoms/episode began/occurred 2 day(s) ago. Possible causes: bad food exposure, flare up of bowel problem, ovariann cancer, chemo. The symptoms are aggravated by food , The symptoms are alleviated by nothing. remaining still, prescription meds. Associated signs and symptoms: Pertinent positives: abdominal pain, nausea, vomiting. Severity of symptoms: At their worst the symptoms were moderate in the emergency department the symptoms are unchanged. The patient has experienced similar episodes in the past, multiple times. 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 - Infectious Disease History:: Denies. - Social history:: Smoking status: Patient denies any tobacco usage or history of. ROS: 09:28 Constitutional: Negative for fever, chills, and weight loss, Eyes: Negative for injury, brenda pain, redness, and discharge, ENT: Negative for injury, pain, and discharge, Neck: Negative for injury, pain, and swelling, Cardiovascular: Negative for chest pain, palpitations, and edema, Respiratory: Negative for shortness of breath, cough, wheezing, and pleuritic chest pain, Back: Negative for injury and pain, : Negative for injury, bleeding, discharge, and swelling, MS/Extremity: Negative for injury and deformity, Skin: Negative for injury, rash, and discoloration, Neuro: Negative for headache, weakness, numbness, tingling, and seizure, Psych: Negative for depression, anxiety, suicide ideation, homicidal ideation, and hallucinations, Allergy/Immunology: Negative for hives, rash, and allergies, Endocrine: Negative for neck swelling, polydipsia, polyuria, polyphagia, and marked weight changes, Hematologic/Lymphatic: Negative for swollen nodes, abnormal bleeding, and unusual bruising, 09:28 Abdomen/GI: Positive for abdominal pain, nausea and vomiting, abdominal cramps, abdominal distension, of the right upper quadrant, left upper quadrant, right lower quadrant and left lower quadrant, Exam: 09:28 Constitutional: This is a well developed, well nourished patient who is awake, alert, brenda and in no acute distress. Head/Face: Normocephalic, atraumatic. Eyes: Pupils equal round and reactive to light, extra-ocular motions intact. Lids and lashes normal. Conjunctiva and sclera are non-icteric and not injected. Cornea within normal limits. Periorbital areas with no swelling, redness, or edema. ENT: Nares patent. No nasal discharge, no septal abnormalities noted. Tympanic membranes are normal and external auditory canals are clear. Oropharynx with no redness, swelling, or masses, exudates, or evidence of obstruction, uvula midline. Mucous membranes moist. Neck: Trachea midline, no thyromegaly or masses palpated, and no cervical lymphadenopathy. Supple, full range of motion without nuchal rigidity, or vertebral point tenderness. No Meningismus. Chest/axilla: Normal chest wall appearance and motion. Nontender with no deformity. No lesions are appreciated. Cardiovascular: Regular rate and rhythm with a normal S1 and S2. No gallops, murmurs, or rubs. Normal PMI, no JVD. No pulse deficits. Respiratory: Lungs have equal breath sounds bilaterally, clear to auscultation and percussion. No rales, rhonchi or wheezes noted. No increased work of breathing, no retractions or nasal flaring. Back: No spinal tenderness. No costovertebral tenderness. Full range of motion. Skin: Warm, dry with normal turgor. Normal color with no rashes, no lesions, and no evidence of cellulitis. MS/ Extremity: Pulses equal, no cyanosis. Neurovascular intact. Full, normal range of motion., bilateral aka Neuro: Awake and alert, GCS 15, oriented to person, place, time, and situation. Cranial nerves II-XII grossly intact. Motor strength 5/5 in all extremities. Sensory grossly intact. Cerebellar exam normal. Normal gait. Psych: Awake, alert, with orientation to person, place and time. Behavior, mood, and affect are within normal limits. 09:28 ECG was reviewed by the Attending Physician. 09:28 Abdomen/GI: Inspection: distension, that is mild, Bowel sounds: absent, in all quadrants, Palpation: mild abdominal tenderness, in the right upper quadrant, left upper quadrant, right lower quadrant and left lower quadrant, Liver: no appreciated palpable abnormalities, Hernia: not appreciated, 09:28 Musculoskeletal/extremity: DVT Exam: No signs of deep vein thrombosis. no pain, no swelling, no tenderness, negative Homans' sign noted on exam, no appreciated bluish discoloration, no erythema, no increased warmth, Vital Signs: 07:57 BP 131 / 64; Pulse 68; Resp 16; Temp 97.6(O); Pulse Ox 100% on R/A; Weight 65.77 kg; hb Height 5 ft. 5 in. ; Pain 3/10; 09:36 BP 118 / 74; Pulse 92; Resp 15; Pulse Ox 98% ; jl7 12:30 BP 115 / 72; Pulse 94; Pulse Ox 98% on R/A; ap3 13:07 BP 115 / 72; Pulse 97; Pulse Ox 98% ; ap3 14:53 BP 111 / 61; Pulse 95; Resp 18; Pulse Ox 99% on R/A; ap3 07:57 Body Mass Index 24.13 (65.77 kg, 165.1 cm) hb 07:57 Pain Scale: Adult hb MDM: 07:44 Medical Screening Exam initiated brenda 09:30 Differential diagnosis: Nonspecific abd pain, gastritis, cholecystitis, pancreatitis, brenda appendicitis, diverticulitis, viral gastroenteritis, gastroenteritis. Data reviewed: vital signs, nurses notes, lab test result(s), EKG, radiologic studies, CT scan. Consideration of Admission/Observation Escalation of care including admission/observation considered. I considered the following discharge prescriptions or medication management in the emergency department Medications were administered in the Emergency Department. See MAR. Independent interpretation of the following test(s) in the Emergency Department EKG: See my EKG interpretation above. Test considered but Not performed: MRI: no mrcp. Historians other than the Patient: Spouse/Significant Other: well informed. Care significantly affected by the following chronic conditions: Cancer. Counseling: I had a detailed discussion with the patient and/or guardian regarding the historical points, exam findings, and any diagnostic results supporting the discharge/admit diagnosis, lab results, radiology results. 10/18 07:47 Order name: CBC with Diff; Complete Time: 10:36 [facility] 10/18 07:47 Order name: Comprehensive Metabolic Panel; Complete Time: 10:36 [facility] 10/18 07:47 Order name: Troponin High Sensitivity; Complete Time: 10:36 [facility] 10/18 07:47 Order name: Urinalysis w/ reflexes brenda 10/18 09:24 Order name: Lipase; Complete Time: 10:36 [facility] 10/18 09:55 Order name: CBC Smear Scan; Complete Time: 10:36 EDMS 03 09:24 Order name: CT Abd/Pelvis - Without Contrast; Complete Time: 11:36 [facility] 10/18 10:36 Order name: US Abdomen Limited; Complete Time: 11:36 [facility] 10/18 07:47 Order name: EKG - Nurse/Tech; Complete Time: 08:09 [facility] 10/18 11:57 Order name: Misc. Order: get ua; Complete Time: 12:04 [facility] EC:28 Rate is 96 beats/min. Rhythm is regular. QRS [place] is Normal. ME interval is normal. QRS brenda interval is normal. QT interval is normal. No Q waves. T waves are Normal. No ST changes noted. Clinical impression: NSR w/ Non-specific ST/T Changes and No evidence of ischemia. Interpreted by me. Reviewed by me. Administered Medications: 09:24 Not Given (Duplicate Order): ondansetron 4 mg IVP once; over 2 minutes brenda 09:36 Drug: Ondansetron IVP 8 mg IVP once; over 2 minutes Route: IVP; Site: left antecubital; jl7 13:06 Follow up: Response: No adverse reaction; Nausea is decreased ap3 09:37 Drug: NS 0.9% IV 1000 ml IV at 1000 ml once; to be given as a bolus over 60 minutes jl7 Route: IV; Rate: 1000 ml; Site: left antecubital; 14:53 Follow up: IV Status: Completed infusion; IV Intake: 1000ml ap3 11:56 Drug: NS 0.9% IV 1000 ml IV at 1000 ml once; to be given as a bolus over 60 minutes ap3 Route: IV; Rate: 1000 ml; Site: left antecubital; 14:53 Follow up: IV Status: Completed infusion; IV Intake: 1000ml ap3 Disposition Summary: 10/18/24 11:58 Discharge Ordered Notes: Location: Home brenda Problem: new brenda Symptoms: have improved brenda Condition: Fair brenda Diagnosis - Other ascites brenda - Malignant ascites brenda - Vomiting brenda Followup: brenda - With: Private Physician - When: 2 - 3 days - Reason: Recheck today's complaints, Continuance of care, Re-evaluation by your physician Discharge Instructions: - Discharge Summary Sheet brenda - Ascites brenda - Ovarian Cancer brenda Forms: - Medication Reconciliation Form brenda - Antibiotic Education brenda - Prescription Opioid Use brenda - Patient Portal Instructions brenda - Leadership Thank You Letter brenda Signatures: Dispatcher [employer] EDMS Low Toribio MD MD cha Baxter, Heather, RN RN Chase Anderson RN RN jl7 Nidhi Hall RN RN ap3 Corrections: (The following items were deleted from the chart) 07:47 07:47 CBC+H.LAB.BRZ ordered. EDMS EDMS 07:47 07:47 COMPREHENSIVE METABOLIC PANEL+C.LAB.BRZ ordered. EDMS EDMS 07:47 07:47 Troponin High Sensitivity+C.LAB.BRZ ordered. EDMS EDMS 07:47 07:47 Urinalysis+U.LAB.BRZ ordered. EDMS EDMS 09:24 09:24 Abdomen Pelvis Wo Con+CT.RAD.BRZ ordered. EDMS EDMS
[2024-10-18 12:20] LABS: Specific Gravity 1.018 (1.005-1.030); Sqamous Epithelial <5 /HPF (None Seen); Urine Bacteria <20 /HPF (<20); Urine Bilirubin NEGATIVE (Negative); Urine Blood Negative (Negative); Urine Clarity Extremely Turbid (Clear); Urine Color Yellow (Yellow); Urine Culture Reflex Order NOT NEEDED; Urine Glucose NEGATIVE (Negative); Urine Ketones 1+ (Negative); Urine Microscopic Reflex YN ORDER UMIC; Urine Mucus 4+ /HPF (None Seen); Urine Nitrite NEGATIVE (Negative); Urine Protein TRACE (Negative); Urine Urobilinogen Normal (Normal); Urine WBC <5 /HPF (<5)
[2024-10-18 12:23] LABS: Urine RBC None Seen /HPF (None Seen)
[2024-10-18 15:17] VITALS: TEMP 97.6
[2024-10-18 15:21] VITALS: BP 111/61; O2SAT 99
--- NOTE | 2024-10-20 11:06 | EKG ---
Test Date: 2024-10-18 Test Time: 07:06:10 Picture Engraver: MARILYN MEASUREMENT RESULTS: Intervals: Rate: 96 ND: 150 QRSD: 74 QT: 354 QTc: 447 [place]: P: 62 ND: 150 QRS: 35 T: 64 INTERPRETIVE STATEMENTS: Sinus rhythm with premature atrial complexes Otherwise normal ECG Compared to ECG 09/15/2024 09:07:46 Atrial premature complex(es) now present Sinus tachycardia no longer present Myocardial infarct finding no longer present Electronically Signed On 10-20-24 10:59:56 CDT by Castro López
== END 2024-10-18 14:54 | disposition home or self-care (01) ==
LOC: ER 07:39
DX: C56.9 Malignant neoplasm of unspecified ovary (principal); R18.0 Malignant ascites; R18.8 Other ascites
CPT/HCPCS: 96361; 93005; 85025; 81001; 36415; 84484; 83690; 80053; 74176; 76705; 96374; 99285; J2405 ×2; J7030 ×2

== ENCOUNTER 2024-12-08 19:20 | Observation (INO) | payer OTHER ==
[2024-12-08 20:45] LABS: Absolute Lymphocytes (CBC) 0.5 K/uL (0.7-4.9); Absolute Monocytes 1.1 K/uL (0.1-1.3); Absolute Neutrophil 9.2 K/uL (1.8-8.0); Basophils % 0.1 % (0-1.3); Eosinophils % 0.1 % (0-4.4); Hematocrit 34.1 % (36.0-45.0); Hemoglobin 11.4 g/dL (12.0-15.0); Lymphocytes % 4.4 % (15.3-44.8); MCH 32.4 pg (27.0-35.0); MCHC 33.4 g/dL (32.0-36.0); MCV 97.2 fL (80-100); MPV 9.4 fL (7.6-11.3); Monocytes % 9.8 % (3.3-12.3); Neutrophils % 85.6 % (41.7-73.7); Platelets 273 thou/uL (152-406); RBC Red Blood Cell Count 3.51 M/uL (3.86-4.86); Red Cell Distribution Width 19.7 % (12.1-15.2)
[2024-12-08 21:01] LABS: Albumin 2.7 g/dL (3.4-5.0); Albumin/Globulin Ratio 0.6 (1.1-1.8); Bilirubin Total 0.6 mg/dL (0.2-1.0); Globulin 4.7 g/dL (2.3-3.5); Protein, Total 7.4 g/dL (6.4-8.2)
[2024-12-08] MEDS ORDERED: METOCLOPRAMIDE 10 MG/2mL INJ ONE (21:03)
[2024-12-08] MEDS ORDERED: HYDROMORPHONE HCL 0.5 MG/0.5 ML INJ ONE (21:03)
[2024-12-08] MEDS ORDERED: PROMETHAZINE INJ 25 MG/ML AMP ONE (21:03)
[2024-12-08] MEDS ORDERED: ONDANSETRON 4 MG/2 ML VIAL ONE (21:03)
[2024-12-08] MEDS ORDERED: NA CHLORIDE 0.9% 1,000 ML ONE (21:04)
--- NOTE | 2024-12-08 22:48 | RAD REPORT ---
EXAM: Chest Abd Pelvis Wo Con CLINICAL INDICATION: Female, 74 years old eval for bowel obstruction TECHNIQUE: CT chest, abdomen and pelvis was performed, without IV contrast, as per department protoco l. Axial, sagittal and coronal reconstructions were obtained. One or more of the following dose reduction techniques were used: Automated exposure control, adjustment of the mA and/or kV according to the patient size, and/or iterative reconstruction. Unless otherwise specified, incidental findings do not require dedicated imaging follow-up. [id number]. COMPARISON: 10/18/2024 FINDINGS: The lack of intravenous contrast limits the sensitivity of this exam for evaluation of solid visceral organs, vascular structures, and retroperitoneum. ---THORAX--- LOWER NECK AND CHEST WALL: Right upper chest wall Port-A-Cath. LUNGS AND AIRWAYS: Chronic bilateral pleural effusions.Similar volume loss in scarring in the right l niurka. PLEURA: No pleural effusion. No pneumothorax. MEDIASTINUM AND LYMPH NODES: No mediastinal mass or fluid collection. Normal size mediastinal, hilar, and axillary lymph nodes. Fluid distended esophagus. THORACIC AORTA: No thoracic aortic aneurysm. PULMONARY ARTERIES: Caliber is within normal limits. HEART: Normal heart size. Mild coronary artery calcifications.Small pericardial effusion. ---ABDOMEN/PELVIS--- UPPER GI: Mass effect on the stomach secondary to the loculated ascites. LIVER: No significant focal abnormality. GALLBLADDER/BILE DUCTS: No biliary ductal dilatation.? PANCREAS: No mass, ductal dilation, or jasen-pancreatic fluid. SPLEEN: Unremarkable. ADRENALS: No adrenal masses. KIDNEYS AND URETERS: Increased now moderate right-sided hydronephrosis.No suspicious renal mass.No re nal calculi. ABDOMINAL AORTA AND OTHER VESSELS: Moderate atherosclerotic changes without aortic aneurysm. PERITONEUM: Moderate volume of loculated ascites which is presumably malignant. LYMPH NODES: No pathologic lymphadenopathy. ABDOMINAL WALL: Unremarkable SMALL BOWEL/COLON: No bowel obstruction identified. 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 URINARY BLADDER: Underdistended but grossly unremarkable. REPRODUCTIVE ORGANS: Uterus surgically absent. No adnexal abnormality. ---COMBINED--- MUSCULOSKELETAL: No acute or suspicious osseous abnormality. ADDITIONAL FINDINGS: None. IMPRESSION: No bowel obstruction. Loculated ascites which may be exerting mass effect on the stomach and could be the source of the patient's symptoms. There is fluid within the esophagus suggesting reflux. Omental disease present which covers the small bowel and colon but, again, no bowel obstruction. Increased now moderate right-sided hydronephrosis. This may also be from mass effect from the loculat ed ascites.
--- NOTE | 2024-12-08 23:11 | ER ---
Nurse's Notes [facility] Name: Qing Powell Age: 74 yrs Sex: Female : 1950 Arrival Date: 12/08/2024 Time: 19:20 Bed 14 Private MD: Diagnosis: Intractable vomiting, moderate dehydration, Acute ileus Presentation: 12/08 19:57 Chief complaint: EMS states: nausea, vomiting, EMS verbalizes possible dehydration. kj2 Coronavirus screen: Client denies travel out of the [place] in the last 14 days. Ebola Screen: No symptoms or risks identified at this time. Initial Sepsis Screen: Does the patient meet any 2 criteria? No. Patient's initial sepsis screen is negative. Does the patient have a suspected source of infection? No. Patient's initial sepsis screen is negative. Risk Assessment: Do you want to hurt yourself or someone else? Patient reports no desire to harm self or others. Onset of symptoms was December 06, 2024. 19:57 Method Of Arrival: EMS: [facility] kj2 19:57 Acuity: NIKKI 3 kj2 Triage Assessment: 20:02 General: Appears in no apparent distress. Behavior is calm, cooperative. Pain: Denies kj2 pain. Neuro: Level of Consciousness is awake, alert, obeys commands, Oriented to person, place, time, situation. Cardiovascular: Respiratory: Airway is patent Respiratory effort is unlabored. GI: Reports nausea, vomiting. Historical: - Allergies: 20:01 Levofloxacin; kj2 20:01 Taxil; kj2 - PMHx: 20:01 Ovarian CA with mets to lungs; kj2 - PSHx: 20:01 hysterectomy; kj2 - Immunization history:: Adult Immunizations unknown. - Infectious Disease History:: Denies. - Social history:: Smoking status: unknown. - Family history:: not pertinent. Screenin:06 [facility] ED Fall Risk Assessment (Adult) History of falling in the last 3 months, kj2 including since admission No falls in past 3 months (0 pts) Confusion or Disorientation No (0 pts) Intoxicated or Sedated No (0 pts) Impaired Gait No (0 pts) Mobility Assist Device Used No (0 pt) Altered Elimination No (0 pt) Score/Fall Risk Level 0 - 2 = Low Risk Maintained a safe environment, Hourly rounding (assess needs \T\ fall precautionary measures) done. Abuse screen: Denies threats or abuse. Denies injuries from another. Nutritional screening: No deficits noted. Tuberculosis screening: No symptoms or risk factors identified. Assessment: 20:07 General: see triage assessment. kj2 21:10 Reassessment: Patient and/or family updated on plan of care and expected duration. Pain kj2 level reassessed. Patient is alert, oriented x 3, equal unlabored respirations, skin warm/dry/pink. Reassessment: patient vomiting small amount of thick brown sputum. 21:45 Reassessment: Patient appears in no apparent distress at this time. Patient and/or kj2 family updated on plan of care and expected duration. Pain level reassessed. Patient is alert, oriented x 3, equal unlabored respirations, skin warm/dry/pink. 22:18 Reassessment: Patient appears in no apparent distress at this time. Patient and/or kj2 family updated on plan of care and expected duration. Pain level reassessed. Patient is alert, oriented x 3, equal unlabored respirations, skin warm/dry/pink. 23:30 Reassessment: Patient appears in no apparent distress at this time. Patient and/or kj2 family updated on plan of care and expected duration. Pain level reassessed. Patient is alert, oriented x 3, equal unlabored respirations, skin warm/dry/pink. Vital Signs: 19:57 BP 118 / 85; Pulse 113; Resp 20; Temp 97.9; Pulse Ox 99% on 3 lpm NC; kj2 21:10 BP 113 / 80; Pulse 117; Resp 20; Pulse Ox 100% on 3 lpm NC; kj2 21:45 BP 110 / 77; Pulse 104; Resp 18; Pulse Ox 100% on R/A; kj2 22:18 BP 112 / 80; Pulse 99; Resp 12; Pulse Ox 100% 3 lpm ; kj2 23:30 BP 114 / 74; Pulse 104; Resp 20; Temp 98; Pulse Ox 100% 3 lpm ; kj2 [place] Coma Score: 23:26 Eye Response: spontaneous(4). Motor Response: obeys commands(6). Verbal Response: sp4 oriented(5). Total: 15. ED Course: 19:43 Patient arrived in ED. jj6 19:57 Liana Ray, RN is Primary Nurse. kj2 20:00 Triage completed. kj2 20:00 Accessed Port-a-Cath. using accessed w/ # 20 [place] needle, 1 08/13. vc1 20:02 Familia Rocha MD is Attending Physician. sp4 20:08 Patient has correct armband on for positive identification. Bed in low position. Call kj2 light in reach. Adult w/ patient. Provided Education on: call light. 20:08 Arm band placed on right wrist. vc1 22:34 CT Chest Abdomen Pelvis W/O Contrast In Process Unspecified. EDMS 23:10 Darin Ackerman MD is Hospitalizing Provider. sp4 12/09 02:32 No provider procedures requiring assistance completed. Patient admitted, IV remains in vc1 place. Administered Medications: 12/08 21:10 Drug: Ondansetron IVP 4 mg IVP once; over 2 minutes Route: IVP; Site: Port-a-cath; kj2 23:22 Follow up: Response: No adverse reaction kj2 21:13 Drug: metoCLOPramide IVP 10 mg IVP once; over 1 to 2 minutes Route: IVP; Site: [facility] Port-a-cath; 23:22 Follow up: Response: No adverse reaction kj2 21:16 Drug: NS 0.9% IV 1000 ml IV at 1 bolus Per protocol; to be given as a bolus over 60 kj2 minutes Route: IV; Rate: 1 bolus; Site: Port-a-cath; 23:23 Follow up: IV Status: Completed infusion; IV Intake: 1000ml kj2 21:16 Drug: Promethazine IVP 25 mg IVP once Route: IVP; Site: Port-a-cath; kj2 23:22 Follow up: Response: No adverse reaction kj2 21:21 Drug: HYDROmorphone IVP 0.5 mg IVP once Route: IVP; Site: Port-a-cath; kj2 23:22 Follow up: Response: No adverse reaction kj2 12/09 00:38 Drug: Famotidine IVP 20 mg IVP once; dilute with 10 mL 0.9% NaCl; give over 2 minutes kj2 Route: IVP; Site: Port-a-cath; 00:38 Drug: Solu-CORTEF IVP 100 mg IVP once Route: IVP; Site: Port-a-cath; kj2 00:39 Drug: Albumin IVPB 25 grams 100 ml IVPB once; (Note: Albumin 25% concentration) Volume: kj2 100 ml; Route: IVPB; Site: Port-a-cath; 00:39 Drug: D5-NS IV 1000 ml IV at 75 ml/hr continuous Route: IV; Rate: 75 ml/hr; Site: kj2 Port-a-cath; 00:39 Drug: Pantoprazole IVP 40 mg IVP once Route: IVP; Site: Port-a-cath; kj2 02:12 Drug: Ondansetron IVP 4 mg IVP once; over 2 minutes Route: IVP; Site: Port-a-cath; vc1 02:13 Drug: Promethazine IVP 25 mg IVP once Route: IVP; Site: Port-a-cath; vc1 02:13 Drug: metoCLOPramide IVP 10 mg IVP once; over 1 to 2 minutes Route: IVP; Site: vc1 Port-a-cath; Medication: 12/08 20:08 VIS not applicable for this client. kj2 Intake: 23:23 IV: 1000ml; Total: 1000ml. kj2 Outcome: 23:10 Decision to Hospitalize by Provider. sp4 12/09 02:34 Admitted to Tele accompanied by tech, via stretcher, room 404, vc1 Condition: stable Instructed on the need for admit, 02:49 Patient left the ED. vc1 Signatures: Dispatcher [employer] EDJanet Diaz jj6 Althea Holloway RN RN vc1 Familia Rocha MD MD sp4 Liana Ray RN RN kj2
--- NOTE | 2024-12-08 23:11 | EDPHYS ---
Physician Documentation [facility] Name: Qing Powell Age: 74 yrs Sex: Female : 1950 Arrival Date: 12/08/2024 Time: 19:20 Bed 14 Private MD: ED Physician Familia Rocha HPI: 12/08 20:03 This 74 yrs old Female presents to ER via EMS with complaints of POSSIBLE sp4 DEHYDRATION. 23:15 74-year-old female presents from home after she has revoked the hospice.. sp4 23:24 Patient developed moderate to severe vomiting about 3 days ago and hospice nurse could sp4 not get nausea under control. Patient states she is vomiting green bile. Denied any bloody emesis or bloody stools. Patient has history of left ovarian cancer with metastatic to multiple other sites. History of malignant ascites history of small bowel obstruction on 09/17/2024. Cancer reports to be metastatic to the lungs, also history of arthritis, history of recurrent abdominal pain nausea vomiting. Patient at this time is not on chemotherapy. She is undergoing hospice care at home. Patient's hospice was revoked she is here for management of nausea vomiting and for signs of dehydration. Patient's medications include Tylenol 3 25 p.o. as needed, Pepcid 20 mg p.o. daily, hydroxychloroquine 200 mg p.o. twice daily, Zofran 8 mg p.o. as needed, promethazine 12.5 mg p.o. as needed, prednisone 20 mg p.o. daily, cefdinir 300 mg p.o. twice daily, doxycycline 100 mg p.o. twice daily, ondansetron 4 mg p.o. daily, and polyethylene glycol as needed.. Historical: - Allergies: 20:01 Levofloxacin; kj2 20:01 Taxil; kj2 - PMHx: 20:01 Ovarian CA with mets to lungs; kj2 - PSHx: 20:01 hysterectomy; kj2 - Immunization history:: Adult Immunizations unknown. - Infectious Disease History:: Denies. - Social history:: Smoking status: unknown. - Family history:: not pertinent. ROS: 23:26 Constitutional: Negative for fever, chills, positive for chronic weight loss, positive sp4 for nausea positive vomiting positive bilious emesis, positive generalized weakness. 23:26 All other systems are negative, Exam: 23:26 Constitutional: Patient is very frail elderly female with moderate to severe physical sp4 deconditioning, Port-A-Cath right chest wall, with subclavian tunneling. Persistent vomiting on exam, bilious emesis. Signs of moderate dehydration with skin tenting poor skin turgor. Acute distress secondary to vomiting Head/Face: Normocephalic, atraumatic. Eyes: Pupils equal round and reactive to light, extra-ocular motions intact. Lids and lashes normal. Conjunctiva and sclera are not injected. Cornea within normal limits. Periorbital areas with no swelling, redness, or edema. ENT: Nares patent. No nasal discharge, no septal abnormalities noted. Tympanic membranes are normal and external auditory canals are clear. Oropharynx with no redness, swelling, or masses, exudates, or evidence of obstruction, uvula midline. Mucous membranes moist. Neck: Trachea midline, no thyromegaly or masses palpated, and no cervical lymphadenopathy. Supple, full range of motion without nuchal rigidity, or vertebral point tenderness. Chest/axilla: Normal chest wall appearance and motion. Nontender with no deformity. No lesions are appreciated. Cardiovascular: Regular rate and rhythm with a normal S1 and S2. No gallops, murmurs, or rubs. Normal PMI, no JVD. No pulse deficits. Respiratory: Lungs have equal breath sounds bilaterally, clear to auscultation and percussion. No rales, rhonchi or wheezes noted. No increased work of breathing, no retractions or nasal flaring. Abdomen/GI: Soft, with normal bowel sounds. No distension or tympany. No guarding positive signs of ascites. Back: No spinal tenderness. No costovertebral tenderness. Skin: Warm, dry with generalized pallor, poor skin turgor indicative of moderate dehydration. MS/ Extremity: Pulses equal, no cyanosis. Neurovascular intact. Full, normal range of motion. Neuro: Awake and alert, GCS 15, oriented to person, place, time, and situation. Cranial nerves II-XII grossly intact. Motor strength 5/5 in all extremities. Sensory grossly intact. Psych: Awake, alert, with orientation to person, place Vital Signs: 19:57 BP 118 / 85; Pulse 113; Resp 20; Temp 97.9; Pulse Ox 99% on 3 lpm NC; kj2 21:10 BP 113 / 80; Pulse 117; Resp 20; Pulse Ox 100% on 3 lpm NC; kj2 21:45 BP 110 / 77; Pulse 104; Resp 18; Pulse Ox 100% on R/A; kj2 22:18 BP 112 / 80; Pulse 99; Resp 12; Pulse Ox 100% 3 lpm ; kj2 23:30 BP 114 / 74; Pulse 104; Resp 20; Temp 98; Pulse Ox 100% 3 lpm ; kj2 [place] Coma Score: 23:26 Eye Response: spontaneous(4). Motor Response: obeys commands(6). Verbal Response: sp4 oriented(5). Total: 15. MDM: 20:06 Medical Screening Exam initiated sp4 23:08 ED course: PERITONEUM: Moderate volume of loculated ascites which is presumably sp4 malignant. LYMPH NODES: No pathologic lymphadenopathy. ABDOMINAL WALL: Unremarkable SMALL BOWEL/COLON: No bowel obstruction identified. 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 URINARY BLADDER: Underdistended but grossly unremarkable. REPRODUCTIVE ORGANS: Uterus surgically absent. No adnexal abnormality. ---COMBINED--- MUSCULOSKELETAL: No acute or suspicious osseous abnormality. ADDITIONAL FINDINGS: None. IMPRESSION: No bowel obstruction. Loculated ascites which may be exerting mass effect on the stomach and could be the source of the patient's symptoms. There is fluid within the esophagus suggesting reflux. Omental disease present which covers the small bowel and colon but, again, no bowel obstruction. Increased now moderate right-sided hydronephrosis. This may also be from mass effect from the loculated ascites. Reported By: James Lou . 23:29 Differential Diagnosis altered mental status, sepsis, flu. Data reviewed: vital signs, sp4 nurses notes, EMS record, lab test result(s), electrolytes, hepatic panel, urinalysis, radiologic studies, CT scan. Consideration of Admission/Observation Patient was admitted/placed on observation. Escalation of care including admission/observation considered. Management of patient was discussed with the following: Hospitalist: Dr. Rene Ackerman MD . ED course: CT reveals no signs of bowel obstruction. Patient stable for admission . . 12/08 20:04 Order name: CBC with Diff; Complete Time: 21:30 sp4 12/08 20:04 Order name: CMP; Complete Time: 21:30 sp4 12/08 20:04 Order name: Lipase; Complete Time: 21:30 sp4 12/08 20:04 Order name: Urinalysis w/ reflexes sp4 12/08 20:50 Order name: CT Chest Abdomen Pelvis W/O Contrast; Complete Time: 22:52 sp4 12/09 01:17 Order name: Case Management Consult EDDE 12/08 20:04 Order name: IV Saline Lock; Complete Time: 21:54 sp4 12/08 20:04 Order name: Labs collected and sent; Complete Time: 21:54 sp4 12/08 20:18 Order name: Misc. Order: Access the chemo port; Complete Time: 21:21 sp4 Administered Medications: 21:10 Drug: Ondansetron IVP 4 mg IVP once; over 2 minutes Route: IVP; Site: Port-a-cath; kj2 23:22 Follow up: Response: No adverse reaction kj2 21:13 Drug: metoCLOPramide IVP 10 mg IVP once; over 1 to 2 minutes Route: IVP; Site: [facility] Port-a-cath; 23:22 Follow up: Response: No adverse reaction kj2 21:16 Drug: NS 0.9% IV 1000 ml IV at 1 bolus Per protocol; to be given as a bolus over 60 kj2 minutes Route: IV; Rate: 1 bolus; Site: Port-a-cath; 23:23 Follow up: IV Status: Completed infusion; IV Intake: 1000ml kj2 21:16 Drug: Promethazine IVP 25 mg IVP once Route: IVP; Site: Port-a-cath; kj2 23:22 Follow up: Response: No adverse reaction kj2 21:21 Drug: HYDROmorphone IVP 0.5 mg IVP once Route: IVP; Site: Port-a-cath; kj2 23:22 Follow up: Response: No adverse reaction kj2 12/09 00:38 Drug: Famotidine IVP 20 mg IVP once; dilute with 10 mL 0.9% NaCl; give over 2 minutes kj2 Route: IVP; Site: Port-a-cath; 00:38 Drug: Solu-CORTEF IVP 100 mg IVP once Route: IVP; Site: Port-a-cath; kj2 00:39 Drug: Albumin IVPB 25 grams 100 ml IVPB once; (Note: Albumin 25% concentration) Volume: kj2 100 ml; Route: IVPB; Site: Port-a-cath; 00:39 Drug: D5-NS IV 1000 ml IV at 75 ml/hr continuous Route: IV; Rate: 75 ml/hr; Site: kj2 Port-a-cath; 00:39 Drug: Pantoprazole IVP 40 mg IVP once Route: IVP; Site: Port-a-cath; kj2 02:12 Drug: Ondansetron IVP 4 mg IVP once; over 2 minutes Route: IVP; Site: Port-a-cath; vc1 02:13 Drug: Promethazine IVP 25 mg IVP once Route: IVP; Site: Port-a-cath; vc1 02:13 Drug: metoCLOPramide IVP 10 mg IVP once; over 1 to 2 minutes Route: IVP; Site: vc1 Port-a-cath; Disposition Summary: 12/08/24 23:10 Hospitalization Ordered Notes: Hospitalization Status: Inpatient Admission sp4 Provider: Darin Ackerman sp4 Condition: Stable sp4 Problem: new sp4 Symptoms: have improved sp4 Bed/Room Type: Standard sp4 Location: Telemetry/MedSurg (Inpatient)(12/09/24 01:00) vk Room Assignment: [facility](12/09/24 01:00) Diagnosis - Intractable vomiting, moderate dehydration, Acute ileus sp4 Forms: - Medication Reconciliation Form sp4 - SBAR form sp4 - Leadership Thank You Letter sp4 Signatures: Dispatcher [employer] Althea Reed RN RN vc1 Shannon Smyth rv1 Familia Rocha MD MD sp4 Ailyn Esparza Krystal, MIRNA RN kj2 Corrections: (The following items were deleted from the chart) 12/08 23:18 23:10 Telemetry/MedSurg (Inpatient) sp4 rv1 23:18 23:10 sp4 rv1 12/09 01:00 12/08 23:[address] [facility] ER HOLD rv1 vk 12/09 01:00 12/08 23:18 ERHOLD- rv1 vk
[2024-12-08] MEDS ORDERED: D5 0.9 NS 1,000 ML IV ONE (23:36)
[2024-12-08] MEDS ORDERED: ALBUMIN HUMAN 25% 100 ML IV ONE (23:36)
[2024-12-09] MEDS ORDERED: PANTOPRAZOLE 40 MG INJ ONE (00:16)
[2024-12-09] MEDS ORDERED: FAMOTIDINE 20 MG/2 ML VIAL IV ONE (00:17)
[2024-12-09] MEDS ORDERED: HYDROCORTISONE SUC 100 MG INJ ONE (00:17)
[2024-12-09] MEDS ORDERED: MORPHINE 2 MG/ML SYR IV PRN (01:09)
--- NOTE | 2024-12-09 01:16 | P.HP ---
Certification for Inpatient Patient admitted to: Observation With expected LOS: <2 Midnights Patient will require the following post-hospital care: None Practitioner: I am a practitioner with admitting privileges, knowledge of patient current condition, hospital course, and medical plan of care. Services: Services provided to patient in accordance with Admission requirements found in Title 42 Section 412.3 of the Code of Federal Regulations Patient History Date of Service: 12/09/24 Reason for admission: Intractable nausea and vomiting; revoked hospice History of Present Illness: Patient is a 74-year-old female with a past medical history of ovarian cancer with mets to the lungs, and mesentery, presents to the emergency room with abdominal pain along with intractable nausea and vomiting. Patient is on hospice care under [facility]. As patient was not doing better they spoke with family about revoking hospice and going to the hospital which the was in agreement with. Patient came to the ER for evaluation. Patient is very lethargic and not really able to answer questions. I spoke to the in length and I know the patient well from her last hospitalization. He states that the oncologist has recommended hospice and no further care. The family does not want any aggressive intervention. They want to go ahead and proceed with inpatient hospitalization. Patient will be admitted to the hospital and will continue with IV antiemetics and anxiolytics and pain control. Patient will be admitted to the hospital for further evaluation for inpatient hospice. Allergies levofloxacin Adverse Reaction (Verified 01/15/23 03:28) Nausea/Vomiting taxil Adverse Reaction (Uncoded 01/15/23 03:28) Shortness of breath Home Medications: Acetaminophen [Tylenol] 325 mg PO PRN 01/15/23 Famotidine [Pepcid] 20 mg PO EVERY 7TH DAY PRN 01/15/23 Hydroxychloroquine [Plaquenil*] 200 mg PO BID 01/15/23 Ondansetron [Zofran (Odt)*] 8 mg PO PRN 01/15/23 Promethazine Tab [Phenergan*] 12.5 mg PO PRN PRN 01/15/23 predniSONE [Prednisone] 20 mg PO DAILY 01/15/23 Cefdinir [Cefdinir*] 300 mg PO BID #10 cap 01/21/23 Doxycycline Hyclate 100 mg PO BID #14 tab 01/21/23 Ondansetron [Zofran] 4 mg PO Q6H PRN #30 tab 01/21/23 Amox/K Clav [Augmentin 600 MG/5 ML Susp] 5 ml PO BID #50 ml 09/17/24 Polyethylene Glycol 3350 [Miralax] 17 gm PO DAILY #30 packet 09/17/24 - Past Medical/Surgical History -: Ovarian cancer with mets -: Constipation -: Arthritis -: Hysterectomy Psychosocial/ Personal History: Patient lives at home with family - Family History Father Family History: Reviewed- Non-Contributory - Social History Smoking Status: Unknown if ever smoked Alcohol use: No CD- Drugs: No Caffeine use: Yes Review of Systems is unable to be obtained Physical Examination - Vital Signs Temperature: 98 F Blood Pressure: 100/60 Pulse: 89 Respirations: 24 Pulse Ox (%): 94 - Physical Exam General: Mild distress, Confused HEENT: Atraumatic, PERRLA, Mucous membr. moist/pink, EOMI, Sclerae nonicteric Neck: Supple, 2+ carotid pulse no bruit, No LAD, Without JVD or thyroid abnorm ality Respiratory: Diminished Cardiovascular: Regular rate/rhythm, Normal S1 S2 Gastrointestinal: Hypoactive, No rebound, No guarding, Distended, Tenderness Musculoskeletal: No clubbing, No swelling, No tenderness Integumentary: No rashes Neurological: Abnormal gait, Abnormal speech, Abnormal strength, Abnormal tone, Abnormal affect - Studies Laboratory Data (last 24 hrs) 12/08/24 12/08/24 20:30 20:30 WBC 10.70 Hgb 11.4 L Hct 34.1 L Plt Count 273 Sodium 135 L Potassium 4.0 BUN 20 H Creatinine 0.65 Glucose 97 Total Bilirubin 0.6 AST 56 H ALT 22 Alkaline Phosphatase 111 Lipase 17 Assessment & Plan - Problems (Diagnosis) (1) Intractable nausea and vomiting Current Visit: No Status: Acute (2) Malignant ascites Current Visit: Yes Status: Acute (3) Primary cancer of left ovary with metastasis from ovary to other site Current Visit: No Status: Acute (4) Hospice care Current Visit: Yes Status: Acute - Plan Plan: 1. Patient with intractable nausea and vomiting secondary to metastatic ovarian cancer with malignant ascites; at this time, we will continue with antiemetics and gentle hydration. Plan is to get patient established with inpatient hospice. Patient is lethargic and not really responding well at this time. Patient is a DNAR. Will continue with antiemetics along with pain control and medications for agitation and anxiety. Patient's prognosis is poor and on initial evaluation she is unlikely to survive over the next 5 days as she has advanced metastatic ovarian cancer is not tolerating diet. Will get case management consult and reach out to [facility] hospice and see if they can get her established with inpatient hospice during this hospitalization. If patient's more awake and alert then she may be able to discharge back home with hospice care. Will reassess in a.m. and discussed the case with social media project manager/case management as well as [facility] hospice. At this time, we will continue with controlling patient's symptoms and will try to make her as comfortable as suad booker at this stage of her life. Discharge Plan: Other (hospice) Plan to discharge in: 24 Hours - Advance Directives Does patient have a Living Will: No Does patient have a Durable POA for Healthcare: No - Code Status/Comfort Care Comfort Measures: Hospice Care Critical Care: No Time Spent Managing PTS Care (In Minutes): 45
[2024-12-09] MEDS ORDERED: ONDANSETRON 4 MG/2 ML VIAL ONE (01:59)
[2024-12-09] MEDS ORDERED: PROMETHAZINE INJ 25 MG/ML AMP ONE (02:00)
[2024-12-09] MEDS ORDERED: NA CHLORIDE 0.9% 50 ML ONE (02:00)
[2024-12-09] MEDS ORDERED: METOCLOPRAMIDE 10 MG/2mL INJ ONE (02:00)
[2024-12-09] MEDS: NA CHLORIDE 0.9% 1,000 ML IV SCH (03:05)
[2024-12-09 03:49] VITALS: BMI 23.8
[2024-12-09] MEDS: LORazepam 2 MG/ML VIAL IV PRN (04:55)
[2024-12-09 10:25] VITALS: O2SAT 100
[2024-12-09] MEDS: ONDANSETRON 4 MG/2 ML VIAL IV PRN (10:55)
[2024-12-09] MEDS ORDERED: PROMETHAZINE INJ 25 MG/ML AMP IV PRN (12:33)
[2024-12-09 12:37] VITALS: BP 117/75; TEMP 97.5
[2024-12-09] MEDS: PROMETHAZINE INJ 25 MG/ML AMP IV PRN (13:04)
[2024-12-09] MEDS: dexAMETHasone 4 MG/ML VIAL IV SCH (13:04)
--- NOTE | 2024-12-09 15:49 | P.DS ---
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 Patient [facility]. As patient was not doing better they spoke with family about revoking hospice and going to the hospital which the was in agreement with. Patient came to the ER for evaluation. Patient is very lethargic and not really able to answer questions. I spoke to the in length and I know the patient well from her last hospitalization. He states that the oncologist has recommended hospice and no further care. The family does not want any aggressive intervention. They want to go ahead and proceed with inpatient hospitalization. Patient will be admitted to the hospital and will continue with IV antiemetics and anxiolytics and pain control. Patient will be admitted to the hospital for further evaluation for inpatient hospice. Hospital Course: Patient was admitted to the hospital for intractable nausea and vomiting, she has a history of ovarian cancer with mets to the lungs, mesentery. She presented to the ER with abdominal pain and intractable nausea and vomiting, she was previously on hospice outpatient but this was revoked. Patient family did not wish for aggressive medical interventions just supportive care. So service was consulted and patient was deemed appropriate for inpatient rehab. Patient is been accepted for inpatient rehab and will be discharged on hospitalist service. 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 <ulises sneed - Last Filed: 12/13/24 18:13> Disposition: HOSPICE-MEDICAL FACILITY Discharge Condition: SERIOUS Vital Signs/Physical Exam: Temp Pulse Resp BP Pulse Ox 97.5 F 97 H 16 117/75 100 12/09/24 12:00 12/09/24 12:00 12/09/24 12:00 12/09/24 12:00 12/09/24 12:00 General: Alert, In no apparent distress, Cachectic HEENT: Atraumatic, PERRLA Neck: Supple, JVD not distended Respiratory: Clear to auscultation bilaterally, Normal air movement Cardiovascular: Regular rate/rhythm, Normal S1 S2 Gastrointestinal: Normal bowel sounds Musculoskeletal: No tenderness Integumentary: No rashes Neurological: Normal speech, Normal affect Laboratory Data at Discharge: WBC 10.70 thou/uL (4.3-10.9) 12/08/24 20:30 Hgb 11.4 g/dL (12.0-15.0) L 12/08/24 20:30 Hct 34.1 % (36.0-45.0) L 12/08/24 20:30 Plt Count 273 thou/uL (152-406) 12/08/24 20:30 Sodium 135 mEq/L (136-145) L 12/08/24 20:30 Potassium 4.0 mEq/L (3.5-5.1) 12/08/24 20:30 BUN 20 mg/dL (7-18) H 12/08/24 20:30 Creatinine 0.65 mg/dL (0.55-1.02) 12/08/24 20:30 Glucose 97 mg/dL (74-106) 12/08/24 20:30 Total Bilirubin 0.6 mg/dL (0.2-1.0) 12/08/24 20:30 AST 56 U/L (15-37) H 12/08/24 20:30 ALT 22 U/L (13-56) 12/08/24 20:30 Alkaline Phosphatase 111 U/L (45-117) 12/08/24 20:30 Lipase 17 U/L (13-75) 12/08/24 20:30 <Jose David - Last Filed: 12/09/24 15:48> Vital Signs/Physical Exam: Temp Pulse Resp BP Pulse Ox 97.5 F 97 H 16 117/75 100 12/09/24 12:00 12/09/24 12:00 12/09/24 12:00 12/09/24 12:00 12/09/24 12:00 Laboratory Data at Discharge: WBC 10.70 thou/uL (4.3-10.9) 12/08/24 20:30 Hgb 11.4 g/dL (12.0-15.0) L 12/08/24 20:30 Hct 34.1 % (36.0-45.0) L 12/08/24 20:30 Plt Count 273 thou/uL (152-406) 12/08/24 20:30 Sodium 135 mEq/L (136-145) L 12/08/24 20:30 Potassium 4.0 mEq/L (3.5-5.1) 12/08/24 20:30 BUN 20 mg/dL (7-18) H 12/08/24 20:30 Creatinine 0.65 mg/dL (0.55-1.02) 12/08/24 20: Glucose 97 mg/dL (74-106) 12/08/24 20: Total Bilirubin 0.6 mg/dL (0.2-1.0) 12/08/24 20: AST 56 U/L (15-37) H 12/08/24 20:30 ALT 22 U/L (13-56) 12/08/24 20:30 Alkaline Phosphatase 111 U/L (45-117) 12/08/24 20: Lipase 17 U/L (13-75) 12/08/24 20:30 <ulises sneed - Last Filed: 12/13/24 18:13> Diet: Regular Activity: Ad jet Time spent managing pt's care (in minutes): 46 <Jose David - Last Filed: 12/09/24 15:48> <ulises sneed - Last Filed: 12/13/24 18:13> Home Medications: Hyoscyamine Sulfate [Levsin-Sl] 0.125 mg SL Q4H 12/09/24 Metoclopramide [Reglan*] 5 mg PO Q8H 12/09/24 Ondansetron [Zofran (Odt)*] 8 mg PO Q8H 12/09/24 Physician Discharge Instructions: Patient was admitted to the hospital for intractable nausea and vomiting, she has a history of ovarian cancer with mets to the lungs, mesentery. She presented to the ER with abdominal pain and intractable nausea and vomiting, she was previously on hospice outpatient but this was revoked. Patient family did not wish for aggressive medical interventions just supportive care. So service was consulted and patient was deemed appropriate for inpatient rehab. Patient is been accepted for inpatient hospice and will be discharged on hospitalist service. Followup: NONE,NONE [Primary Care Provider] -
== END 2024-12-09 16:00 | disposition hospice, inpatient (51) ==
LOC: ER 19:20 → 4TH 12-09 01:09
PROVIDERS: ADMIT Hospitalist; ATTEND Internal Medicine
DX: R11.2 Nausea with vomiting, unspecified (principal); R18.0 Malignant ascites; R10.9 Unspecified abdominal pain; C56.2 Malignant neoplasm of left ovary; C78.00 Secondary malignant neoplasm of unspecified lung; C78.6 Secondary malignant neoplasm of retroperitoneum and peritoneum; Z88.1 Allergy status to other antibiotic agents; Z51.5 Encounter for palliative care
CPT/HCPCS: 96361; 85025; 36415; 83690; 80053; 71250; 74176; 96375; 96374; 99285; J2550 ×3; J1100; J2765 ×2; J2470; J1171; J1720; J2405 ×4; P9047; J7042; J7030; G0378 ×2

== ENCOUNTER 2024-12-09 16:30 | Inpatient (IN) | payer OTHER ==
[2024-12-09] MEDS ORDERED: ACETAMINOPHEN 650MG/RECT SUPP PR PRN (16:40)
[2024-12-09] MEDS ORDERED: BISACODYL 10 MG RECTAL SUPP PR PRN (16:40)
[2024-12-09] MEDS ORDERED: HYDROMORPHONE HCL 2 MG/ML inj IV PRN (16:42)
[2024-12-09] MEDS: SCOPOLAMINE HYDROBROMIDE PATCH TD SCH (17:57)
--- NOTE | 2024-12-09 21:33 | P.HP ---
Patient History Date of Service: 12/09/24 Reason for admission: HOSPICE FOR ADVANCED OVARIAN CANCER History of Present Illness: JAIRO HAS HAS STAGE 4 OVARIAN CANCER. HER ONCOLOGIST DR. KAY HAS TRIED ALL CHEMO AND NOTHING HAS WORKED. SHE WAS PLACED ON HOSPICE BY [facility]. SHE CONTINUES TO HAVE SEVERE NAUSEA AND VOMITING AT HOME. THEY ASKED HER TO BRING HER TO [facility]. [facility] WAS CALLED IN. SHE IS IN FOR GIP FOR SEVERE UNCONTROLLABLE TERMINAL CANCER SYMPTOMS. Allergies levofloxacin Adverse Reaction (Verified 01/15/23 03:28) Nausea/Vomiting taxil Adverse Reaction (Uncoded 01/15/23 03:28) Shortness of breath Home Medications: Hyoscyamine Sulfate [Levsin-Sl] 0.125 mg SL Q4H 12/09/24 Metoclopramide [Reglan*] 5 mg PO Q8H 12/09/24 Ondansetron [Zofran (Odt)*] 8 mg PO Q8H 12/09/24 - Past Medical/Surgical History Has patient received pneumonia vaccine in the past: Yes Diabetic: No -: Ovarian cancer with mets -: Constipation -: Arthritis -: Hysterectomy Psychosocial/ Personal History: Patient lives at home with family - Social History Smoking Status: Never smoker Alcohol use: No CD- Drugs: No Caffeine use: No Place of Residence: Home Review of Systems 10-point ROS is otherwise unremarkable General: Weakness, As per HPI Physical Examination - Vital Signs Temperature: 97.2 F Blood Pressure: 119/79 Pulse: 97 Respirations: 18 Pulse Ox (%): 100 - Physical Exam General: Oriented x3, Cachectic, Acute distress, Severe distress HEENT: Atraumatic, PERRLA, Mucous membr. moist/pink, EOMI, Sclerae nonicteric Neck: Supple, 2+ carotid pulse no bruit, No LAD, Without JVD or thyroid abnor mality Respiratory: Clear to auscultation bilaterally, Normal air movement Cardiovascular: Regular rate/rhythm, Normal S1 S2 Gastrointestinal: Normal bowel sounds, No tenderness Musculoskeletal: No tenderness Integumentary: No rashes Neurological: Normal gait, Normal speech, Normal strength at 5/5 x4 extr, Normal tone, Normal affect Lymphatics: No axilla or inguinal lymphadenopathy Assessment and Plan - Problems (Diagnosis) (1) Intractable nausea and vomiting Current Visit: No Status: Acute Plan: ZOFRAN AND PHENERGEN IV PRN COMFORT CARE. 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 DILAUDID ATIVAN PRN. AT BEDSIDE. WILL KEEP HER COMFORTABLE WITH HOSPICE PROTOCOLS. - Advance Directives Does patient have a Living Will: No Does patient have a Durable POA for Healthcare: Yes
[2024-12-09] MEDS: ONDANSETRON 4 MG/2 ML VIAL IV PRN (21:47)
[2024-12-10] MEDS: PROMETHAZINE INJ 25 MG/ML AMP IV PRN (00:55)
[2024-12-10] MEDS ORDERED: METOCLOPRAMIDE 10 MG/2mL INJ IV PRN (11:57)
--- NOTE | 2024-12-10 13:16 | P.PN ---
Subjective Date of Service: 12/10/24 Chief Complaint: HOSPICE FOR ADVANCED OVARIAN CANCER Subjective: Worsening VOMITING IS NOT CONTROLLED WITH ZOFRAN AND PHENERGAN ADD REGLAN IV. Review of Systems 10-point ROS is otherwise unremarkable Physical Examination - Vital Signs Temperature: 97.5 F Blood Pressure: 110/61 Pulse: 83 Respirations: 18 Pulse Ox (%): 100 - Physical Exam General: Cachectic, Moderate distress HEENT: Atraumatic, PERRLA, EOMI Neck: Supple, JVD not distended Respiratory: Clear to auscultation bilaterally, Normal air movement Cardiovascular: Regular rate/rhythm, Normal S1 S2 Gastrointestinal: Normal bowel sounds, No tenderness Musculoskeletal: No tenderness Integumentary: No rashes Neurological: Normal speech, Normal tone, Normal affect Lymphatics: No axilla or inguinal lymphadenopathy - Studies Medications List Reviewed: Yes Assessment And Plan - Current Problems (Diagnosis) (1) Intractable nausea and vomiting Current Visit: No Status: Acute Plan: ZOFRAN AND PHENERGEN IV PRN COMFORT CARE. ADD REGLAN IV. PROGNOSIS POOR. 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 DILAUDID ATIVAN PRN. AT BEDSIDE. WILL KEEP HER COMFORTABLE WITH HOSPICE PROTOCOLS.
[2024-12-10] MEDS: METOCLOPRAMIDE 10 MG/2mL INJ IV SCH (14:15)
[2024-12-11] MEDS: ACETAMINOPHEN 500 MG TAB PO PRN (08:30)
--- NOTE | 2024-12-11 15:57 | P.PN ---
Subjective Date of Service: 12/11/24 Chief Complaint: HOSPICE FOR ADVANCED OVARIAN CANCER Subjective: Worsening VOMITING IS NOT CONTROLLED WITH ZOFRAN AND PHENERGAN ADD REGLAN IV. SEVERE NAUSEA AND VOMITING. SOME BETTER WITH REGLAN. Review of Systems 10-point ROS is otherwise unremarkable General: Weakness, Malaise, As per HPI Gastrointestinal: Abdominal Pain Physical Examination - Vital Signs Temperature: 97 F Blood Pressure: 112/68 Pulse: 104 Respirations: 13 Pulse Ox (%): 100 - Physical Exam General: Cachectic, Moderate distress, Severe distress HEENT: Atraumatic, PERRLA, EOMI Neck: Supple, JVD not distended Respiratory: Clear to auscultation bilaterally, Normal air movement Cardiovascular: Regular rate/rhythm, Normal S1 S2 Gastrointestinal: Tenderness Musculoskeletal: No tenderness Integumentary: No rashes Neurological: Normal speech Lymphatics: No axilla or inguinal lymphadenopathy - Studies Medications List Reviewed: Yes Assessment And Plan - Current Problems (Diagnosis) (1) Intractable nausea and vomiting Current Visit: No Status: Acute Plan: ZOFRAN AND PHENERGEN IV PRN COMFORT CARE. ADD REGLAN IV. PROGNOSIS POOR. 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 DILAUDID ATIVAN PRN. AT BEDSIDE. WILL KEEP HER COMFORTABLE WITH HOSPICE PROTOCOLS. DW FAMILY AND HER ABOUT MEDS FOR VOMITING TODAY. SHE IS SOME BETTER. TERMINAL CANCER IN THE ABDOMNEN CAVITY IS KEEPING HER VOMITING.
[2024-12-11] MEDS: HALOPERIDOL LACT 5 MG/ML INJ IV SCH (17:00)
[2024-12-11] MEDS: dexAMETHasone 4 MG/ML VIAL IV SCH (17:04)
--- NOTE | 2024-12-12 19:03 | P.PN ---
Subjective Date of Service: 12/12/24 Chief Complaint: HOSPICE FOR ADVANCED OVARIAN CANCER Subjective: Worsening VOMITING IS NOT CONTROLLED WITH ZOFRAN AND PHENERGAN ADD REGLAN IV. SEVERE NAUSEA AND VOMITING. SOME BETTER WITH REGLAN. SHE CONTINUES TO VOMIT. SHE DOES NOT WANT TO TAKE ANYTHING BUT ZOFRAN PER . Review of Systems 10-point ROS is otherwise unremarkable General: Weakness, Malaise Gastrointestinal: Vomiting Physical Examination - Vital Signs Temperature: 97.9 F Blood Pressure: 142/76 Pulse: 83 Respirations: 22 Pulse Ox (%): 94 - Physical Exam General: Cachectic, Severe distress HEENT: Atraumatic, PERRLA, EOMI Neck: Supple, JVD not distended Respiratory: Clear to auscultation bilaterally, Normal air movement Cardiovascular: Regular rate/rhythm, Normal S1 S2 Gastrointestinal: Normal bowel sounds, No tenderness Musculoskeletal: No tenderness Integumentary: No rashes Neurological: Normal speech, Normal tone, Normal affect Lymphatics: No axilla or inguinal lymphadenopathy - Studies Medications List Reviewed: Yes Assessment And Plan - Current Problems (Diagnosis) (1) Intractable nausea and vomiting Current Visit: No Status: Acute Plan: ZOFRAN AND PHENERGEN IV PRN COMFORT CARE. ADD REGLAN IV. PROGNOSIS POOR. 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 DILAUDID ATIVAN PRN. AT BEDSIDE. WILL KEEP HER COMFORTABLE WITH HOSPICE PROTOCOLS. DW FAMILY AND HER ABOUT MEDS FOR VOMITING TODAY. SHE IS SOME BETTER. TERMINAL CANCER IN THE ABDOMNEN CAVITY IS KEEPING HER VOMITING. I ASKED HER IF WE CAN STOP OXYGEN AND SHE AGREED. SHE IS ON HOSPICE AND OXYGEN WILL PROLONG HER AGONY. SHE IS MISERABLE WITH SEVERE NAUSEA RELATED TO ADVANCED CANCER. I ASEKD HER TO USE HALDOL I ORDERED IT MAY HELP WITH VOMITING IN CANCER PATIENTS.
[2024-12-13] MEDS: LORazepam 2 MG/ML VIAL IV PRN (06:31)
--- NOTE | 2024-12-13 21:01 | P.PN ---
Subjective Date of Service: 12/13/24 Chief Complaint: HOSPICE FOR ADVANCED OVARIAN CANCER Subjective: Worsening VOMITING IS NOT CONTROLLED WITH ZOFRAN AND PHENERGAN ADD REGLAN IV. SEVERE NAUSEA AND VOMITING. SOME BETTER WITH REGLAN. SHE CONTINUES TO VOMIT. SHE DOES NOT WANT TO TAKE ANYTHING BUT ZOFRAN PER . WEAK, FRAIL STILL VOMITS BUT LESS PER DAUGHTER. Review of Systems 10-point ROS is otherwise unremarkable General: Weakness, Malaise Gastrointestinal: Vomiting, Abdominal Pain Physical Examination - Vital Signs Temperature: 96.9 F Blood Pressure: 114/79 Pulse: 102 Respirations: 14 Pulse Ox (%): 96 - Physical Exam General: Cachectic, Moderate distress HEENT: Atraumatic, PERRLA, EOMI Neck: Supple, JVD not distended Respiratory: Diminished Cardiovascular: Regular rate/rhythm, Normal S1 S2 Gastrointestinal: Normal bowel sounds, No tenderness Musculoskeletal: No tenderness Integumentary: No rashes Neurological: Normal speech, Normal tone, Normal affect Lymphatics: No axilla or inguinal lymphadenopathy - Studies Medications List Reviewed: Yes Assessment And Plan - Current Problems (Diagnosis) (1) Intractable nausea and vomiting Current Visit: No Status: Acute Plan: ZOFRAN AND PHENERGEN IV PRN COMFORT CARE. ADD REGLAN IV. PROGNOSIS POOR. 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 DILAUDID ATIVAN PRN. AT BEDSIDE. WILL KEEP HER COMFORTABLE WITH HOSPICE PROTOCOLS. DW FAMILY AND HER ABOUT MEDS FOR VOMITING TODAY. SHE IS SOME BETTER. TERMINAL CANCER IN THE ABDOMNEN CAVITY IS KEEPING HER VOMITING. I ASKED HER IF WE CAN STOP OXYGEN AND SHE AGREED. SHE IS ON HOSPICE AND OXYGEN WILL PROLONG HER AGONY. SHE IS MISERABLE WITH SEVERE NAUSEA RELATED TO ADVANCED CANCER. I ASEKD HER TO USE HALDOL I ORDERED IT MAY HELP WITH VOMITING IN CANCER PATIENTS. SHE STILL VOMITS AFTER IV MEDS GIVEN ZOFRAN, PHENERGAN, HALDOL AND STEROIDS. UNFORTUNATLEY THIS IS FROM METASTATIC OVARIAN CANCER SO MEDS ARE PARTIALLY EFFECTIVE. DC OXYGEN IT IS NOT GOING TO HELP HER. FAMILY AGREES.
--- NOTE | 2024-12-14 12:20 | P.PN ---
Subjective Date of Service: 12/14/24 Chief Complaint: HOSPICE FOR ADVANCED OVARIAN CANCER Subjective: Worsening KATIE IS WEAKER. SHE WANTS OXYGEN SO WE PUT IT BACK ON HER. HER BP IS DROPPING. SHE NOT AWAKE MUCH ANY LONGER.. Physical Examination - Vital Signs Temperature: 97 F Blood Pressure: 87/54 Pulse: 102 Respirations: 13 Pulse Ox (%): 99 - Physical Exam General: Cachectic, Moderate distress HEENT: Atraumatic, PERRLA, EOMI Neck: Supple, JVD not distended Respiratory: Clear to auscultation bilaterally, Normal air movement Cardiovascular: Regular rate/rhythm, Normal S1 S2 Gastrointestinal: Normal bowel sounds, No tenderness Musculoskeletal: No tenderness Integumentary: No rashes Neurological: Other (SEMICOMATOSE.) Lymphatics: No axilla or inguinal lymphadenopathy - Studies Medications List Reviewed: Yes Assessment And Plan - Current Problems (Diagnosis) (1) Intractable nausea and vomiting Current Visit: No Status: Acute Plan: ZOFRAN AND PHENERGEN IV PRN COMFORT CARE. ADD REGLAN IV. PROGNOSIS POOR. 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 DILAUDID ATIVAN PRN. AT BEDSIDE. WILL KEEP HER COMFORTABLE WITH HOSPICE PROTOCOLS. STARTED TO CRY SHE ASKED FOR PERMISSION TO . I TOLD HIM TO LET HER GO. GIVE PER PERMISSION. SYMPTOMS ARE BETTER WITH IV MEDS. SHE IS SEDATED AND SEMICOMATOSE.
[2024-12-14 21:03] VITALS: BP 77/51; TEMP 97.8
[2024-12-14 22:27] VITALS: O2SAT 96
--- NOTE | 2024-12-15 13:14 | P.DS ---
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 HER ONCOLOGIST DR. KAY HAS TRIED ALL CHEMO AND NOTHING HAS WORKED. SHE WAS PLACED ON HOSPICE BY [facility]. SHE CONTINUES TO HAVE SEVERE NAUSEA AND VOMITING AT HOME. THEY ASKED HER TO BRING HER TO [facility] WAS CALLED IN. SHE IS IN FOR [facility] FOR SEVERE UNCONTROLLABLE TERMINAL CANCER SYMPTOMS. Hospital Course: KATIE HAS HAD METASTATIC OVARIAN CANCER SHE EXPECTED. IT TOOK 4 MEDICINES TO PARTIALLY CONTROL HER VOMITING. SHE PEACEFULLY. Vital Signs/Physical Exam: Temp Pulse Resp BP Pulse Ox 97.8 F 87 24 H 77/51 L 96 12/14/24 20:00 12/14/24 20:00 12/14/24 20:00 12/14/24 20:00 12/14/24 20:00 Home Medications: Hyoscyamine Sulfate [Levsin-Sl] 0.125 mg SL Q4H 12/09/24 Metoclopramide [Reglan*] 5 mg PO Q8H 12/09/24 Ondansetron [Zofran (Odt)*] 8 mg PO Q8H 12/09/24 Followup: Yuri Samaniego MD [Primary Care Provider] -
== END 2024-12-15 11:43 | disposition expired | DRG 951 ==
LOC: 4TH 16:30
PROVIDERS: ADMIT Internal Medicine; ATTEND Internal Medicine
DX: Z51.5 Encounter for palliative care (principal)
CPT/HCPCS: J1100; J1630; J2405; J2550; J2765